=== PATIENT | male | born 1960 | race Caucasian/White ===

== ENCOUNTER 2019-04-23 08:30 | Outpatient (RCR) | payer OTHER, SELFPAY ==
[2019-04-09 09:29] VITALS: BP 159/73; PULSE 80; RESP 18; TEMP 37.3; BMI 41.8
--- NOTE | 2019-04-09 17:23 | HP.PCM_ITS ---
(1) Leg wound, left Status: Chronic Current Visit: Yes Code(s): S81.802A - Unspecified open wou nd, left lower leg, initial encounter Comment: Nonhealing, traumatic and penetrating chronic left leg wound. (2) Venous insufficiency of both lower extremities Status: Chronic Current Visit: Yes Code(s): I87.2 - Venous insufficiency (chronic) (peripheral) History of Present Illness Date of Service: 04/09/19 Chief Complaint: Nonhealing left leg wound. History of Wound: Mr. Beth is a 59-year-old who was in a stable state of health until about 2 months ago when he fell at work. Sustained a wound to his left leg which he had tried to manage at home with no significant improvement. however, he was admitted to the hospital in March due to left leg cellulitis. Since hospital discharge. He has noted persistent wound and worsening left lower extremity swelling. He has been applying Bactroban daily with no significant improvement. He was advised to come to the wound center by his sister/[id number]. Feels well at this time. Denies chills, fever, nausea, vomiting or change in his bowel habit. Past Medical History Past Medical History: Chronic Problems Leg wound, left (Chronic) Nonhealing, traumatic and penetrating chronic left leg wound. Venous insufficiency of both lower extremities (Chronic) Allergies/Adverse Reactions: Allergies No Known Allergies Allergy (Verified 04/09/19 10:00) Home Medications: Ambulatory Orders Medication Instructions Recorded Apixaban [Eliquis] 2.5 mg PO 04/09/19 Furosemide [Lasix] 40 mg PO 04/09/19 Potassium Chloride [K-Dur] 20 meq PO DAILY 04/09/19 Simvastatin 40 mg PO 04/09/19 Smoking Status: Never smoker Review of Systems Constitutional: Denies: Anorexia, Chills, Fever Eyes: Denies: Blurred vision, Pain, Redness HEENT: Denies: Difficulty Swallowing Cardiovascular: Denies: Chest Pain, Chest Pressure Respiratory: Denies: Hemoptysis Gastrointestinal: Denies: Abdominal Pain, Hematemesis, Vomiting Skin: Denies: Jaundice - Physical Exam Vital Signs Temp Pulse Resp BP 99.1 F 80 18 159/73 H 04/09/19 09:29 04/09/19 09:29 04/09/19 09:29 04/09/19 09:29 General: Alert, Oriented x3, Cooperative, No apparent distress HEENT: Atraumatic, Normocephalic Oral: Moist Mucosa Neck: Supple Lungs: Normal air movement Cardiovascular: Regular rate, Regular Rhythm, Normal S1, Normal S2 Abdomen: Non Tender, Obese Extremities: No cyanosis, Edema Skin: Ulcer/ Wound Wound Measurements and Assessment WC - Nurse 1 - General Ulcer Measurement Start: 04/09/19 09:24 Freq: Status: Active Protocol: Activity Type Activity Date Activity User E-Sign Co-Sign Detail Recorded Client Recorded Date Recorded By Document 04/09/19 09:29 DL [id number] 04/09/19 09:56 DL 04/09/19 09:29 Wound Center Nurse 1 [Ulcer Assessment] #1 left kinney -Current Size (cm) - Length 1.1 -Current Size (cm) - Width 1.2 -Current Size (cm) - Depth 0.2 -Total Square Cm 1.32 -Photo Taken Yes -Exudate Amt Small -Exudate Type Serosanguineous -Wound Margin Thickened -Granulation Amt Large (67-100%) -Granulation Quality [place] -Necrosis Amt Small (1-33%) -Necrotic Tissue Type Adherent Slough -Structure Exposed N/A -Texture (Jessica-wound Skin Appearance) Localized Edema ,Scarring -Moisture (Jessica-wound Skin Appearance Dry/Scaly ) -Color (Jessica-wound Skin Appearance) Hemosiderin Staining -Temperature (Jessica-wound Skin No Abnormality Appearance) (Pt Warm) -Tenderness on Palpation (Jessica-wound No Skin Appearance) -Ulcer Cleansing Wound Cleanser -Foul Odor after Cleansing No -Anesthetic Used 5% Lidocaine Gel [Edema Assessment] -Right Calf (cm) 42.5 -Right Ankle (cm) 24 -Left Calf (cm) 45.7 -Left Ankle (cm) 24 WC - Nurse 2 - General Ulcer CM Notes Start: 04/09/19 09:24 Freq: Status: Active Protocol: Activity Type Activity Date Activity User E-Sign Co-Sign Detail Recorded Client Recorded Date Recorded By Document 04/09/19 10:28 MW [id number] 04/09/19 10:34 MW 04/09/19 10:28 Wound Center Nurse 2 [Procedure/Treatment] #1 left kinney -Time 10:29 -Correct Patient Yes -Correct Side, Site, Position Yes -Correct Procedure Yes -Procedure Performed Yes -Type of Procedure Debridement -Clinical Debridement Subcutaneous -Post Debridement Size (cm) - Length 2.5 -Post Debridement Size (cm) - Width 2.0 -Post Debridement Size (cm) - Depth 0.2 -Total Square Cm 5.00 -Wound/Ulcer Outcome Not Healed -Ulcer Cleansing Rinsed/ Irrigated with Saline -Foul Odor after Cleansing No -Bioengineered Tissue No -Bleeding Controlled with Pressure -Offloading No -Treatment Response Procedure Tolerated Well [See Physician Procedure note for Specifics] Pain Scale: 0-10 Numeric [Pain] -Is Patient Pain Free? Yes Musculoskeletal: No Muscle Wasting Neurological: Cranial nerves II-XII grossly intact Psych/Mental Status: Normal Affect Debridement Note Post-Debridement Measurements/Treatment WC - Nurse 2 - General Ulcer CM Notes Start: 04/09/19 09:24 Freq: Status: Active Protocol: Activity Type Activity Date Activity User E-Sign Co-Sign Detail Recorded Client Recorded Date Recorded By Document 04/09/19 10:28 MW [id number] 04/09/19 10:34 MW 04/09/19 10:28 Wound Center Nurse 2 #1 left kinney -Time 10:29 -Correct Patient Yes -Correct Side, Site, Position Yes -Correct Procedure Yes -Procedure Performed Yes -Type of Procedure Debridement -Clinical Debridement Subcutaneous -Post Debridement Size (cm) - Length 2.5 -Post Debridement Size (cm) - Width 2.0 -Post Debridement Size (cm) - Depth 0.2 -Total Square Cm 5.00 -Wound/Ulcer Outcome Not Healed -Ulcer Cleansing Rinsed/ Irrigated with Saline -Foul Odor after Cleansing No -Bioengineered Tissue No -Bleeding Controlled with Pressure -Offloading No -Treatment Response Procedure Tolerated Well Pain Scale: 0-10 Numeric Is Patient Pain Free? Yes Wound debrided: Left leg Type of Debridement: Excisional debridement Anesthesia Used: 4% Lidocaine Solution Depth: Down to and including healthy tissue, in the subcutaneous layer Percentage of wound debrided: 100 Instrument Used: 7mm curette Tissue Removed: Slough and devitalized tissue Severity: Fat Layer Exposed Amount of bleeding with debridement: Mild Bleeding Controlled with: Pressure Patient tolerated procedure well Assessment/Plan Active Problems Leg wound, left (Chronic) Nonhealing, traumatic and penetrating chronic left leg wound. Venous insufficiency of both lower extremities (Chronic) Assessment: Same as above. Plan: Debridement done as documented above. Procedure was well-tolerated. Fib racol daily with Adaptic over top. Lengthy discussion on leg elevation, exercise and weight loss had with patient. Double layer Tubigrip for edema management. Arterial studies ordered. Will request records from admit to hospital. Increased protein intake also recommended. His questions were answered and he was advised to call with any further questions or concerns. Follow-up in a week. This note was generated with [employer] dictation software. It may contain incorrect words, spelling, and punctuation that were not noted in checking the note before signing. Code Visit 111xxx-113xx: 23946 Adeline subq tissue 20 sq cm/< - E and M code New Level 4.
[2019-04-16 09:10] VITALS: BP 138/68; PULSE 64; RESP 16; TEMP 37.2; BMI 41.8
--- NOTE | 2019-04-16 10:31 | PN.PCM_ITS ---
(1) Leg wound, left Status: Chronic Current Visit: Yes Code(s): S81.802A - Unspecified open wou nd, left lower leg, initial encounter Comment: Nonhealing, traumatic and penetrating chronic left leg wound. (2) Venous insufficiency of both lower extremities Status: Chronic Current Visit: Yes Code(s): I87.2 - Venous insufficiency (chronic) (peripheral) Type of Wound Date of Service: 04/16/19 Chief Complaint: Nonhealing left leg wound. History of Wound: Mr. Beth is a 59-year-old who was in a stable state of health until about 2 months ago when he fell at work. Sustained a wound to his left leg which he had tried to manage at home with no significant improvement. however, he was admitted to the hospital in March due to left leg cellulitis. Since hospital discharge. He has noted persistent wound and worsening left lower extremity swelling. He has been applying Bactroban daily with no significant improvement. He was advised to come to the wound center by his sister/[id number]. Feels well at this time. Denies chills, fever, nausea, vomiting or change in his bowel habit. Progress of Wound: Patient denies any new concerns at this time. They report complaince wih dressing instructions. Yet to get Circaids. - Physical Exam Vital Signs Temp Pulse Resp BP 98.9 F 64 16 138/68 H 04/16/19 09:10 04/16/19 09:10 04/16/19 09:10 04/16/19 09:10 General: Alert, Oriented x3, Cooperative, No apparent distress HEENT: Atraumatic, Normocephalic Oral: Moist Mucosa Neck: Supple Lungs: Normal air movement Abdomen: Non Tender, Obese Extremities: No cyanosis, Edema Skin: Ulcer/ Wound Wound Measurements and Assessment WC - Nurse 1 - General Ulcer Measurement Start: 04/09/19 09:24 Freq: Status: Active Protocol: Activity Type Activity Date Activity User E-Sign Co-Sign Detail Recorded Client Recorded Date Recorded By Document 04/16/19 09:10 MW [id number] 04/16/19 09:14 MW 04/16/19 09:10 Wound Center Nurse 1 [Ulcer Assessment] #1 left kinney -Combined with other wound No -Current Size (cm) - Length 3.0 -Current Size (cm) - Width 2.2 -Current Size (cm) - Depth 0.2 -Total Square Cm 6.60 -Photo Taken No -Epithelialization None Present -Tunneling No -Undermining/Tunneling No -Circular Undermining No -Exudate Amt Medium -Exudate Type Serosanguineous -Wound Margin Flat & Intact -Granulation Amt Medium (34-66%) -Granulation Quality Red -Slough/Fibrin Yes -Necrosis Amt Medium (34-66%) -Necrotic Tissue Type Adherent Slough -Structure Exposed N/A -Texture (Jessica-wound Skin Appearance) Assessed, Localized Edema -Moisture (Jessica-wound Skin Appearance Assessed,Dry/ ) Scaly -Color (Jessica-wound Skin Appearance) Assessed, Hemosiderin Staining -Temperature (Jessica-wound Skin No Abnormality Appearance) (Pt Warm) -Tenderness on Palpation (Jessica-wound No Skin Appearance) -Ulcer Cleansing Rinsed/ Irrigated with Saline -Foul Odor after Cleansing No -Anesthetic Used 4% Lidocaine Solution [Edema Assessment] -Lower Limb Edema Present Yes -Left Calf (cm) 46.0 -Left Ankle (cm) 28.7 WC - Nurse 2 - General Ulcer CM Notes Start: 04/09/19 09:24 Freq: Status: Active Protocol: Activity Type Activity Date Activity User E-Sign Co-Sign Detail Recorded Client Recorded Date Recorded By Document 04/16/19 09:34 MW [id number] 04/16/19 09:36 MW 04/16/19 09:34 Wound Center Nurse 2 [Procedure/Treatment] #1 left kinney -Time 09:35 -Correct Patient Yes -Correct Side, Site, Position Yes -Correct Procedure Yes -Procedure Performed Yes -Type of Procedure Debridement -Clinical Debridement Subcutaneous -Post Debridement Size (cm) - Length 3.0 -Post Debridement Size (cm) - Width 2.5 -Post Debridement Size (cm) - Depth 0.2 -Total Square Cm 7.50 -Wound/Ulcer Outcome Not Healed -Ulcer Cleansing Rinsed/ Irrigated with Saline -Foul Odor after Cleansing No -Bioengineered Tissue No -Bleeding Controlled with Pressure -Offloading No -Treatment Response Procedure Tolerated Well [See Physician Procedure note for Specifics] Pain Scale: 0-10 Numeric [Pain] -Is Patient Pain Free? Yes Musculoskeletal: No Muscle Wasting Neurological: Cranial nerves II-XII grossly intact Psych/Mental Status: Normal Affect Debridement Note Post-Debridement Measurements/Treatment WC - Nurse 2 - General Ulcer CM Notes Start: 04/09/19 09:24 Freq: Status: Active Protocol: Activity Type Activity Date Activity User E-Sign Co-Sign Detail Recorded Client Recorded Date Recorded By Document 04/09/19 10:28 MW [id number] 04/09/19 10:34 MW Document 04/16/19 09:34 MW [id number] 04/16/19 09:36 MW 04/09/19 04/16/19 10:28 09:34 Wound Center Nurse 2 #1 left kinney -Time 10:29 09:35 -Correct Patient Yes Yes -Correct Side, Site, Position Yes Yes -Correct Procedure Yes Yes -Procedure Performed Yes Yes -Type of Procedure Debridement Debridement -Clinical Debridement Subcutaneous Subcutaneous -Post Debridement Size (cm) - Length 2.5 3.0 -Post Debridement Size (cm) - Width 2.0 2.5 -Post Debridement Size (cm) - Depth 0.2 0.2 -Total Square Cm 5.00 7.50 -Wound/Ulcer Outcome Not Healed Not Healed -Ulcer Cleansing Rinsed/ Rinsed/ Irrigated with Irrigated with Saline Saline -Foul Odor after Cleansing No No -Bioengineered Tissue No No -Bleeding Controlled with Pressure Pressure -Offloading No No -Treatment Response Procedure Procedure Tolerated Well Tolerated Well Pain Scale: 0-10 Numeric Is Patient Pain Free? Yes Yes Wound debrided: Left leg Type of Debridement: Excisional debridement Anesthesia Used: 4% Lidocaine Solution Depth: Down to and including healthy tissue, in the subcutaneous layer Percentage of wound debrided: 100 Instrument Used: 7mm curette Tissue Removed: Slough and devitalized tissue Severity: Fat Layer Exposed Amount of bleeding with debridement: Mild Bleeding Controlled with: Pressure Patient tolerated procedure well Assessment/Plan Active Problems Leg wound, left (Chronic) Nonhealing, traumatic and penetrating chronic left leg wound. Venous insufficiency of both lower extremities (Chronic) Assessment: Same as above. Plan: Debridement done as documented above. Procedure was well-tolerated. Fibracol daily with Adaptic over top. Continue double layer Tubigrip for edema management for now. Should get Circaids soon. Arterial studies have been ordered. Increased protein intake also recommended. Elevate lowere extremities, weight loss and avoid idle standing. His questions were answered and he was advised to call with any further questions or concerns. Follow-up in a week. This note was generated with [employer] software. It may contain incorrect words, spelling, and punctuation that were not noted in checking the note before signing. Code Visit 111xxx-113xx: 06036 Adeline subq tissue 20 sq cm/<
[2019-04-23 08:49] VITALS: BP 129/73; PULSE 74; RESP 20; TEMP 37; BMI 41.8
--- NOTE | 2019-04-23 09:11 | PN.PCM_ITS ---
(1) Leg wound, left Status: Chronic Current Visit: Yes Code(s): S81.802A - Unspecified open wou nd, left lower leg, initial encounter Comment: Nonhealing, traumatic and penetrating chronic left leg wound. (2) Venous insufficiency of both lower extremities Status: Chronic Current Visit: Yes Code(s): I87.2 - Venous insufficiency (chronic) (peripheral) (3) Cellulitis of leg, left Status: Acute Current Visit: Yes Code(s): L03.116 - Cellulitis of left lower limb Type of Wound Date of Service: 04/23/19 Chief Complaint: Nonhealing left leg wound. History of Wound: Mr. Beth is a 59-year-old who was in a stable state of health until about 2 months ago when he fell at work. Sustained a wound to his left leg which he had tried to manage at home with no significant improvement. however, he was admitted to the hospital in March due to left leg cellulitis. Since hospital discharge. He has noted persistent wound and worsening left lower extremity swelling. He has been applying Bactroban daily with no significant improvement. He was advised to come to the wound center by his sister/[id number]. Feels well at this time. Denies chills, fever, nausea, vomiting or change in his bowel habit. Progress of Wound: Increaseing redness, differential warmth and pain of left leg. Patient denies chills, fever or otherwise feeling of unwell. - Physical Exam Vital Signs Temp Pulse Resp BP 98.6 F 74 20 H 129/73 H 04/23/19 08:49 04/23/19 08:49 04/23/19 08:49 04/23/19 08:49 General: Alert, Oriented x3, Cooperative, No apparent distress HEENT: Atraumatic, Normocephalic Neck: Supple Lungs: Normal air movement Abdomen: Obese Extremities: No cyanosis, Edema Skin: Ulcer/ Wound Wound Measurements and Assessment WC - Nurse 1 - General Ulcer Measurement Start: 04/09/19 09:24 Freq: Status: Active Protocol: Activity Type Activity Date Activity User E-Sign Co-Sign Detail Recorded Client Recorded Date Recorded By Document 04/23/19 08:49 DL [id number] 04/23/19 08:55 DL 04/23/19 08:49 Wound Center Nurse 1 [Ulcer Assessment] #1 left kinney -Current Size (cm) - Length 2.8 -Current Size (cm) - Width 2.4 -Current Size (cm) - Depth 0.2 -Total Square Cm 6.72 -Photo Taken No -Exudate Amt Small -Exudate Type Serosanguineous -Wound Margin Distinct, Outline Attached -Granulation Amt Small (1-33%) -Granulation Quality Red -Necrosis Amt Large (67-100%) -Necrotic Tissue Type Adherent Slough -Structure Exposed N/A -Texture (Jessica-wound Skin Appearance) Scarring -Moisture (Jessica-wound Skin Appearance Dry/Scaly ) -Color (Jessica-wound Skin Appearance) Hemosiderin Staining -Temperature (Jessica-wound Skin No Abnormality Appearance) (Pt Warm) -Tenderness on Palpation (Jessica-wound No Skin Appearance) -Ulcer Cleansing Wound Cleanser -Foul Odor after Cleansing No -Anesthetic Used 5% Lidocaine Gel [Edema Assessment] -Left Calf (cm) 44 -Left Ankle (cm) 27.6 WC - Nurse 2 - General Ulcer CM Notes Start: 04/09/19 09:24 Freq: Status: Active Protocol: Activity Type Activity Date Activity User E-Sign Co-Sign Detail Recorded Client Recorded Date Recorded By Document 04/23/19 09:03 MW [id number] 04/23/19 09:07 MW 04/23/19 09:03 Wound Center Nurse 2 [Procedure/Treatment] #1 left kinney -Time 09:06 -Correct Patient Yes -Correct Side, Site, Position Yes -Correct Procedure Yes -Procedure Performed Yes -Type of Procedure Debridement -Clinical Debridement Subcutaneous -Post Debridement Size (cm) - Length 3.0 -Post Debridement Size (cm) - Width 2.5 -Post Debridement Size (cm) - Depth 0.1 -Total Square Cm 7.50 -Wound/Ulcer Outcome Not Healed -Ulcer Cleansing Rinsed/ Irrigated with Saline -Foul Odor after Cleansing No -Bioengineered Tissue No -Bleeding Controlled with Pressure -Offloading No -Treatment Response Procedure Tolerated Well [See Physician Procedure note for Specifics] Pain Scale: 0-10 Numeric [Pain] -Is Patient Pain Free? Yes Musculoskeletal: No Muscle Wasting Neurological: Cranial nerves II-XII grossly intact Psych/Mental Status: Normal Affect Debridement Note Post-Debridement Measurements/Treatment WC - Nurse 2 - General Ulcer CM Notes Start: 04/09/19 09:24 Freq: Status: Active Protocol: Activity Type Activity Date Activity User E-Sign Co-Sign Detail Recorded Client Recorded Date Recorded By Document 04/09/19 10:28 MW [id number] 04/09/19 10:34 MW Document 04/16/19 09:34 MW [id number] 04/16/19 09:36 MW Document 04/23/19 09:03 MW [id number] 04/23/19 09:07 MW 04/09/19 04/16/19 04/23/19 10:28 09:34 09:03 Wound Center Nurse 2 #1 left kinney -Time 10:29 09:35 09:06 -Correct Patient Yes Yes Yes -Correct Side, Site, Position Yes Yes Yes -Correct Procedure Yes Yes Yes -Procedure Performed Yes Yes Yes -Type of Procedure Debridement Debridement Debridement -Clinical Debridement Subcutaneous Subcutaneous Subcutaneous -Post Debridement Size (cm) - Length 2.5 3.0 3.0 -Post Debridement Size (cm) - Width 2.0 2.5 2.5 -Post Debridement Size (cm) - Depth 0.2 0.2 0.1 -Total Square Cm 5.00 7.50 7.50 -Wound/Ulcer Outcome Not Healed Not Healed Not Healed -Ulcer Cleansing Rinsed/ Rinsed/ Rinsed/ Irrigated with Irrigated with Irrigated with Saline Saline Saline -Foul Odor after Cleansing No No No -Bioengineered Tissue No No No -Bleeding Controlled with Pressure Pressure Pressure -Offloading No No No -Treatment Response Procedure Procedure Procedure Tolerated Well Tolerated Well Tolerated Well Pain Scale: 0-10 Numeric Is Patient Pain Free? Yes Yes Yes Wound debrided: Left Leg Type of Debridement: Excisional debridement Anesthesia Used: 4% Lidocaine Solution Depth: Down to and including healthy tissue, in the subcutaneous layer Percentage of wound debrided: 100 Instrument Used: 7mm curette Tissue Removed: Slough and devitalized tissue Severity: Fat Layer Exposed Amount of bleeding with debridement: Mild Bleeding Controlled with: Pressure Patient tolerated procedure well Assessment/Plan Active Problems Leg wound, left (Chronic) Nonhealing, traumatic and penetrating chronic left leg wound. Venous insufficiency of both lower extremities (Chronic) Cellulitis of leg, left (Acute) Assessment: Same as above. Plan: Debridement done as documented above. Procedure was well-tolerated. Left leg cellulitis. Continue Fibracol daily with Adaptic over top. Continue double layer Tubigrip for edema management for now. Should get Circaids soon. Keflex and Doxycyline to cover possible organisms. Arterial studies have been ordered. Increased protein intake also recommended. Elevate lower extremities, weight loss and avoid idle standing. No significant progress so far with traditional wound care product, will apply for a skin sub. He meets medical necessity due to chronicity of wound, non healing and venous insufficiency. His questions were answered and he was advised to call with any further questions or concerns. Follow-up in a week. This note was generated with [employer] dictation software. It may contain incorrect words, spelling, and punctuation that were not noted in checking the note before signing. Code Visit 111xxx-113xx: 08273 Adeline subq tissue 20 sq cm/<
== END 2019-05-02 23:59 ==
LOC: WC 08:30
PROVIDERS: Family Provider Family Medicine; Visit Provider Internal Medicine
DX: S81.832A Puncture wound without foreign body, left lower leg, initial encounter (principal); W19.XXXA Unspecified fall, initial encounter; I87.2 Venous insufficiency (chronic) (peripheral); Z79.01 Long term (current) use of anticoagulants; Z79.899 Other long term (current) drug therapy; M79.89 Other specified soft tissue disorders
CPT/HCPCS: 11042; 99203; G0463

== ENCOUNTER 2019-05-21 09:00 | Outpatient (RCR) | payer OTHER, SELFPAY ==
[2019-05-03 01:11] VITALS: BP 129/73; PULSE 74; RESP 20; TEMP 37
[2019-05-07 08:36] VITALS: BP 125/71; PULSE 70; RESP 18; TEMP 36.6; BMI 41.8
--- NOTE | 2019-05-07 10:03 | ART_ITS ---
Reason For Study: PAD Procedure A bilateral lower extremity continuous wave Doppler with analog waveform analysis,segmental pressures,and ankle brachial indexes without exercise. Left Segmental Pressures Left brachial= 124mmHg. Left posterior tibial artery = 159mmHg. Left dorsalis pedis artery = 127mmHg. Left digit = 112 mmHg. The left dorsalis pedis waveforms are triphasic. The left posterior tibial artery waveforms are triphasic. Right Segmental Pressures Right brachial= 122mmHg. Right posterior tibial artery = 165mmHg. Right dorsalis pedis artery = 156mmHg. Right digit = 98 mmHg. The right dorsalis pedis waveforms are triphasic. The right posterior tibial artery waveforms are triphasic. Indices The right ankle brachial index by the dorsalis pedis is 1.26. The right ankle brachial index by the posterior tibial artery is 1.33. The right digital-brachial index is 0.79. The left ankle brachial index by the dorsalis pedis is 1.02. The left ankle brachial index by the posterior tibial artery is 1.28. The left digital-brachial index is 0.90. Interpretation Summary Triphasic Doppler waveforms are noted at ankle level bilaterally. Pulse-volume recordings appear satisfactory at all levels bilaterally, including low-thigh, calf, ankle, and digital level. Resting ankle-brachial indices are normal bilaterally. Digital-brachial indices are normal bilaterally. There is no evidence of significant arterial occlusive disease in the lower extremities bilaterally. Ordering Physician: Richie Sandoval Referring Physician: Mishel Luna Performed By: Christie Spencer RVT
--- NOTE | 2019-05-07 10:03 | VDLE_ITS ---
Reason For Study: Edema RIGHT LEFT CFV is compressible, spontaneous, phasic, CFV is compressible, spontaneous, phasic, competent and demonstrates normal competent, and demonstrates normal augmentation. augmentation. FV is compressible, spontaneous, phasic, FV is compressible, spontaneous, phasic, competent and demonstrates normal competent and demonstrates normal augmentation. augmentation. POP V is compressible, spontaneous, phasic, POP V is compressible, spontaneous, phasic, competent and demonstrates normal competent and demonstrates normal augmentation. augmentation. T/P Trunk is compressible. T/P Trunk is compressible. PTV is compressible. PTV is compressible. RT PerV is compressible. LT PerV is compressible. SFJ is INCOMPETENT and measures 1.06 x 1.18 SFJ is INCOMPETENT and measures 0.93 x 0.87 cm. cm. GSV proximal thigh measures 0.33 x 0.32 cm. GSV proximal thigh measures 0.43 x 0.45 cm. GSV above knee is competent. GSV INCOMPETENT throughout for greater than GSV at knee measures 0.26 x 0.29 cm. 0.5 seconds. GSV below knee is INCOMPETENT for greater ASV at knee is INCOMPETENT for greater than than 0.5 seconds. 0.5 seconds and measures 0.68 x 0.72 cm. ASV proximal calf is INCOMPETENT for greater INCOMPETENT embossing tool setter noted 22 cm above than 0.5 seconds and measures 0.37 x 0.39 cm. medial malleolus. INCOMPETENT embossing tool setter noted 14 cm above SSV at junction is competent and measures medial maleolus. 0.33 x 0.37 cm. SSV at junction is INCOMPETENT for greater than 0.5 seconds and measures 0.24 x 0.23 cm. Procedure Exam performed in department. A preliminary report was called and/or faxed to . Interpretation Summary Deep veins of the lower extremities are bilaterally patent and compressible segmentally. There is no evidence of deep vein thrombosis on either side. Valvular competence appears intact within the proximal deep venous systems bilaterally. The great saphenous veins appear bilaterally patent and compressible segmentally. Sapheno-femoral junctions are bilaterally incompetent . The right great saphenous vein appears competent above the knee. The right great saphenous vein appears incompetent below the knee. The left great saphenous vein appears segmentally incompetent. The right small saphenous vein is patent and incompetent. The left small saphenous vein is patent and competent. The right accessory saphenous vein in the right proximal calf is incompetent. The left accessory saphenous vein at knee level is incompetent. An incompetent embossing tool setter vein is noted in the right calf, located 14 centimeters proximal to the right medial malleolus. An incompetent embossing tool setter vein is noted in the left calf, located 22 centimeters proximal to the left medial malleolus. Ordering Physician: Richie Sandoval Referring Physician: Mishel Luna Performed By: Christie Spencer RVT
--- NOTE | 2019-05-07 10:27 | PN.PCM_ITS ---
(1) Leg wound, left Status: Chronic Current Visit: Yes Code(s): S81.802A - Unspecified open wou nd, left lower leg, initial encounter Comment: Nonhealing, traumatic and penetrating chronic left leg wound. (2) Venous insufficiency of both lower extremities Status: Chronic Current Visit: Yes Code(s): I87.2 - Venous insufficiency (chronic) (peripheral) Type of Wound Date of Service: 05/07/19 Chief Complaint: Nonhealing left leg wound. History of Wound: Mr. Beth is a 59-year-old who was in a stable state of health until about 2 months ago when he fell at work. Sustained a wound to his left leg which he had tried to manage at home with no significant improvement. however, he was admitted to the hospital in March due to left leg cellulitis. Since hospital discharge. He has noted persistent wound and worsening left lower extremity swelling. He has been applying Bactroban daily with no significant improvement. He was advised to come to the wound center by his sister/[id number]. Feels well at this time. Denies chills, fever, nausea, vomiting or change in his bowel habit. Progress of Wound: Improving. No new concerns at this time. - Physical Exam Vital Signs Temp Pulse Resp BP 97.8 F 70 18 125/71 H 05/07/19 08:36 05/07/19 08:36 05/07/19 08:36 05/07/19 08:36 General: Alert, Oriented x3, Cooperative, No apparent distress HEENT: Atraumatic, Normocephalic Oral: Moist Mucosa Neck: Supple Lungs: Normal air movement Abdomen: Non Tender, Obese Extremities: No cyanosis, Edema Skin: Ulcer/ Wound Wound Measurements and Assessment WC - Nurse 1 - General Ulcer Measurement Start: 05/07/19 08:36 Freq: Status: Active Protocol: Activity Type Activity Date Activity User E-Sign Co-Sign Detail Recorded Client Recorded Date Recorded By Document 05/07/19 08:36 DL [id number] 05/07/19 08:42 DL 05/07/19 08:36 Wound Center Nurse 1 [Ulcer Assessment] #1 left kinney -Current Size (cm) - Length 1.7 -Current Size (cm) - Width 1.7 -Current Size (cm) - Depth 0.2 -Total Square Cm 2.89 -Photo Taken No -Exudate Amt Small -Exudate Type Serosanguineous -Wound Margin Distinct, Outline Attached -Granulation Amt None Present (0 %) -Necrosis Amt Large (67-100%) -Necrotic Tissue Type Adherent Slough -Structure Exposed N/A -Texture (Jessica-wound Skin Appearance) Scarring -Moisture (Jessica-wound Skin Appearance Dry/Scaly ) -Color (Jessica-wound Skin Appearance) Erythema, Hemosiderin Staining -Temperature (Jessica-wound Skin No Abnormality Appearance) (Pt Warm) -Tenderness on Palpation (Jessica-wound Yes Skin Appearance) -Ulcer Cleansing Wound Cleanser -Foul Odor after Cleansing No -Anesthetic Used 4% Lidocaine Solution [Edema Assessment] -Left Calf (cm) 45 -Left Ankle (cm) 28 WC - Nurse 2 - General Ulcer CM Notes Start: 05/07/19 08:36 Freq: Status: Active Protocol: Activity Type Activity Date Activity User E-Sign Co-Sign Detail Recorded Client Recorded Date Recorded By Document 05/07/19 09:37 MW [id number] 05/07/19 09:44 MW 05/07/19 09:37 Wound Center Nurse 2 [Procedure/Treatment] #1 left kinney -Time 09:38 -Correct Patient Yes -Correct Side, Site, Position Yes -Correct Procedure Yes -Procedure Performed Yes -Type of Procedure Debridement -Clinical Debridement Subcutaneous -Post Debridement Size (cm) - Length 2.5 -Post Debridement Size (cm) - Width 1.5 -Post Debridement Size (cm) - Depth 0.1 -Total Square Cm 3.75 -Wound/Ulcer Outcome Not Healed -Ulcer Cleansing Rinsed/ Irrigated with Saline -Foul Odor after Cleansing No -Bioengineered Tissue No -Bleeding Controlled with Pressure -Offloading No -Treatment Response Procedure Tolerated Well [See Physician Procedure note for Specifics] Pain Scale: 0-10 Numeric [Pain] -Is Patient Pain Free? Yes Musculoskeletal: No Muscle Wasting Neurological: Cranial nerves II-XII grossly intact Psych/Mental Status: Normal Affect Debridement Note Post-Debridement Measurements/Treatment WC - Nurse 2 - General Ulcer CM Notes Start: 05/07/19 08:36 Freq: Status: Active Protocol: Activity Type Activity Date Activity User E-Sign Co-Sign Detail Recorded Client Recorded Date Recorded By Document 05/07/19 09:37 MW [id number] 05/07/19 09:44 MW 05/07/19 09:37 Wound Center Nurse 2 #1 left kinney -Time 09:38 -Correct Patient Yes -Correct Side, Site, Position Yes -Correct Procedure Yes -Procedure Performed Yes -Type of Procedure Debridement -Clinical Debridement Subcutaneous -Post Debridement Size (cm) - Length 2.5 -Post Debridement Size (cm) - Width 1.5 -Post Debridement Size (cm) - Depth 0.1 -Total Square Cm 3.75 -Wound/Ulcer Outcome Not Healed -Ulcer Cleansing Rinsed/ Irrigated with Saline -Foul Odor after Cleansing No -Bioengineered Tissue No -Bleeding Controlled with Pressure -Offloading No -Treatment Response Procedure Tolerated Well Pain Scale: 0-10 Numeric Is Patient Pain Free? Yes Wound debrided: Left leg Type of Debridement: Excisional debridement Anesthesia Used: 4% Lidocaine Solution Depth: Down to and including healthy tissue, in the subcutaneous layer Percentage of wound debrided: 100 Instrument Used: 5mm curette Tissue Removed: Slough and devitalized tissue Severity: Fat Layer Exposed Amount of bleeding with debridement: Mild Bleeding Controlled with: Pressure Patient tolerated procedure well Assessment/Plan Active Problems Leg wound, left (Chronic) Nonhealing, traumatic and penetrating chronic left leg wound. Venous insufficiency of both lower extremities (Chronic) Assessment: Same as above. Plan: Debridement done as documented above. Procedure was well-tolerated. Continue Fibracol daily with Adaptic over top. Continue Circaids for edema management. Increased protein intake also recommended. Elevate lower extremities, weight loss and avoid idle standing. Now approved for [employer] however, patient will like to consider his co payments prior to application. His questions were answered and he was advised to call with any further questions or concerns. Follow-up in a week. This note was generated with [id number] dictation software. It may contain incorrect words, spelling, and punctuation that were not noted in checking the note before signing. Code Visit 111xxx-113xx: 13320 Adeline subq tissue 20 sq cm/<
[2019-05-14 09:52] VITALS: BP 152/77; PULSE 80; RESP 18; TEMP 36.8; BMI 41.8
--- NOTE | 2019-05-14 10:15 | PCM.WC.PN ---
(1) Leg wound, left Status: Chronic Current Visit: Yes Code(s): S81.802A - Unspecified open wound, left lower leg, initial encounter Comment: Nonhealing, traumatic and penetrating chronic left leg wound. (2) Venous insufficiency of both lower extremities Status: Chronic Current Visit: Yes Code(s): I87.2 - Venous insufficiency (chronic) (peripheral) Type of Wound Date of Service: 05/14/19 Chief Complaint: Nonhealing left leg wound. History of Wound: Mr. Beth is a 59-year-old who was in a stable state of health until about 2 months ago when he fell at work. Sustained a wound to his left leg which he had tried to manage at home with no significant improvement. however, he was admitted to the hospital in March due to left leg cellulitis. Since hospital discharge. He has noted persistent wound and worsening left lower extremity swelling. He has been applying Bactroban daily with no significant improvement. He was advised to come to the wound center by his sister/[id number]. Feels well at this time. Denies chills, fever, nausea, vomiting or change in his bowel habit. Progress of Wound: Improving. No new concerns at this time. - Physical Exam Vital Signs Temp Pulse Resp BP 98.2 F 80 18 152/77 H 05/14/19 09:52 05/14/19 09:52 05/14/19 09:52 05/14/19 09:52 General: Alert, Oriented x3, Cooperative, No apparent distress HEENT: Atraumatic, Normocephalic Oral: Moist Mucosa Neck: Supple Lungs: Normal air movement Abdomen: Non Tender, Obese Extremities: No cyanosis, Edema Skin: Ulcer/ Wound Wound Measurements and Assessment WC - Nurse 1 - General Ulcer Measurement Start: 05/07/19 08:36 Freq: Status: Active Protocol: Activity Type Activity Date Activity User E-Sign Co-Sign Detail Recorded Client Recorded Date Recorded By Document 05/14/19 09:52 DL [id number] 05/14/19 09:57 DL 05/14/19 09:52 Wound Center Nurse 1 [Ulcer Assessment] #1 left kinney -Current Size (cm) - Length 2.1 -Current Size (cm) - Width 1.3 -Current Size (cm) - Depth 0.1 -Total Square Cm 2.73 -Photo Taken No -Exudate Amt Small -Exudate Type Serosanguineous -Wound Margin Distinct, Outline Attached -Granulation Amt Medium (34-66%) -Granulation Quality [place] -Necrosis Amt Medium (34-66%) -Necrotic Tissue Type Adherent Slough -Structure Exposed N/A -Texture (Jessica-wound Skin Appearance) Scarring -Moisture (Jessica-wound Skin Appearance Dry/Scaly ) -Color (Jessica-wound Skin Appearance) Ecchymosis, Hemosiderin Staining -Tenderness on Palpation (Jessica-wound No Skin Appearance) -Ulcer Cleansing Rinsed/ Irrigated with Saline -Foul Odor after Cleansing No -Anesthetic Used 5% Lidocaine Gel [Edema Assessment] -Left Calf (cm) 45 -Left Ankle (cm) 28.5 WC - Nurse 2 - General Ulcer CM Notes Start: 05/07/19 08:36 Freq: Status: Active Protocol: Activity Type Activity Date Activity User E-Sign Co-Sign Detail Recorded Client Recorded Date Recorded By Document 05/14/19 10:05 DL [id number] 05/14/19 10:08 DL 05/14/19 10:05 Wound Center Nurse 2 [Procedure/Treatment] #1 left kinney -Time 10:06 -Correct Patient Yes -Correct Side, Site, Position Yes -Correct Procedure Yes -Procedure Performed Yes -Type of Procedure Debridement -Clinical Debridement Subcutaneous -Post Debridement Size (cm) - Length 2.2 -Post Debridement Size (cm) - Width 1.2 -Post Debridement Size (cm) - Depth 0.1 -Total Square Cm 2.64 -Wound/Ulcer Outcome Not Healed -Ulcer Cleansing Rinsed/ Irrigated with Saline -Foul Odor after Cleansing No -Bioengineered Tissue No -Bleeding Controlled with Pressure -Offloading No -Treatment Response Procedure Tolerated Well [See Physician Procedure note for Specifics] Pain Scale: 0-10 Numeric [Pain] -Is Patient Pain Free? Yes Musculoskeletal: No Muscle Wasting Neurological: Cranial nerves II-XII grossly intact Psych/Mental Status: Normal Affect Debridement Note Post-Debridement Measurements/Treatment WC - Nurse 2 - General Ulcer CM Notes Start: 05/07/19 08:36 Freq: Status: Active Protocol: Activity Type Activity Date Activity User E-Sign Co-Sign Detail Recorded Client Recorded Date Recorded By Document 05/07/19 09:37 MW [id number] 05/07/19 09:44 MW Document 05/14/19 10:05 DL [id number] 05/14/19 10:08 DL 05/07/19 05/14/19 09:37 10:05 Wound Center Nurse 2 #1 left kinney -Time 09:38 10:06 -Correct Patient Yes Yes -Correct Side, Site, Position Yes Yes -Correct Procedure Yes Yes -Procedure Performed Yes Yes -Type of Procedure Debridement Debridement -Clinical Debridement Subcutaneous Subcutaneous -Post Debridement Size (cm) - Length 2.5 2.2 -Post Debridement Size (cm) - Width 1.5 1.2 -Post Debridement Size (cm) - Depth 0.1 0.1 -Total Square Cm 3.75 2.64 -Wound/Ulcer Outcome Not Healed Not Healed -Ulcer Cleansing Rinsed/ Rinsed/ Irrigated with Irrigated with Saline Saline -Foul Odor after Cleansing No No -Bioengineered Tissue No No -Bleeding Controlled with Pressure Pressure -Offloading No No -Treatment Response Procedure Procedure Tolerated Well Tolerated Well Pain Scale: 0-10 Numeric Is Patient Pain Free? Yes Yes Wound debrided: Left Leg Type of Debridement: Excisional debridement Anesthesia Used: 4% Lidocaine Solution Depth: Down to and including healthy tissue, in the subcutaneous layer Percentage of wound debrided: 100 Instrument Used: 5mm curette Tissue Removed: Slough and devitalized tissue Severity: Fat Layer Exposed Amount of bleeding with debridement: Mild Bleeding Controlled with: Pressure Patient tolerated procedure well Assessment/Plan Active Problems Leg wound, left (Chronic) Nonhealing, traumatic and penetrating chronic left leg wound. Venous insufficiency of both lower extremities (Chronic) Assessment: Same as above. Plan: Improving. Debridement done as documented above. Procedure was well-tolerated. Continue Fibracol daily with Adaptic over top. Continue Circaids for edema management. Increased protein intake also recommended. Elevate lower extremities, weight loss and avoid idle standing. His questions were answered and he was advised to call with any further questions or concerns. Follow-up in a week. This note was generated with [employer] dictation software. It may contain incorrect words, spelling, and punctuation that were not noted in checking the note before signing. Code Visit 111xxx-113xx: 81835 Adeline subq tissue 20 sq cm/<
[2019-05-21 09:07] VITALS: BP 154/78; PULSE 77; RESP 22; TEMP 36.9; BMI 41.8
--- NOTE | 2019-05-21 10:40 | PN.PCM_ITS ---
(1) Leg wound, left Status: Chronic Current Visit: Yes Code(s): S81.802A - Unspecified open wou nd, left lower leg, initial encounter Comment: Nonhealing, traumatic and penetrating chronic left leg wound. (2) Venous insufficiency of both lower extremities Status: Chronic Current Visit: Yes Code(s): I87.2 - Venous insufficiency (chronic) (peripheral) Type of Wound Date of Service: 05/21/19 Chief Complaint: Nonhealing left leg wound. History of Wound: Mr. Beth is a 59-year-old who was in a stable state of health until about 2 months ago when he fell at work. Sustained a wound to his left leg which he had tried to manage at home with no significant improvement. however, he was admitted to the hospital in March due to left leg cellulitis. Since hospital discharge. He has noted persistent wound and worsening left lower extremity swelling. He has been applying Bactroban daily with no significant improvement. He was advised to come to the wound center by his sister/[id number]. Feels well at this time. Denies chills, fever, nausea, vomiting or change in his bowel habit. Progress of Wound: Modest improvement. Did not use his compression stockings this week. - Physical Exam Vital Signs Temp Pulse Resp BP 98.4 F 77 22 H 154/78 H 05/21/19 09:07 05/21/19 09:07 05/21/19 09:07 05/21/19 09:07 General: Alert, Oriented x3, Cooperative, No apparent distress HEENT: Atraumatic, Normocephalic Oral: Moist Mucosa Neck: Supple Lungs: Normal air movement Abdomen: Non Tender, Obese Extremities: No cyanosis, Edema Skin: Ulcer/ Wound Wound Measurements and Assessment WC - Nurse 1 - General Ulcer Measurement Start: 05/07/19 08:36 Freq: Status: Active Protocol: Activity Type Activity Date Activity User E-Sign Co-Sign Detail Recorded Client Recorded Date Recorded By Document 05/21/19 09:07 [email or web address] [id number] 05/21/19 09:12 DL 05/21/19 09:07 Wound Center Nurse 1 [Ulcer Assessment] #1 left kinney -Current Size (cm) - Length 2.2 -Current Size (cm) - Width 1 -Current Size (cm) - Depth 0.1 -Total Square Cm 2.2 -Photo Taken No -Exudate Amt Small -Exudate Type Serosanguineous -Wound Margin Distinct, Outline Attached -Granulation Amt Medium (34-66%) -Granulation Quality Red -Necrosis Amt Medium (34-66%) -Necrotic Tissue Type Adherent Slough -Structure Exposed N/A -Texture (Jessica-wound Skin Appearance) Scarring -Moisture (Jessica-wound Skin Appearance No Abnormality ) -Color (Jessica-wound Skin Appearance) Hemosiderin Staining -Temperature (Jessica-wound Skin No Abnormality Appearance) (Pt Warm) -Tenderness on Palpation (Jessica-wound No Skin Appearance) -Ulcer Cleansing Rinsed/ Irrigated with Saline -Foul Odor after Cleansing No -Anesthetic Used 5% Lidocaine Gel [Edema Assessment] -Left Calf (cm) 47 -Left Ankle (cm) 29.5 WC - Nurse 2 - General Ulcer CM Notes Start: 05/07/19 08:36 Freq: Status: Active Protocol: Activity Type Activity Date Activity User E-Sign Co-Sign Detail Recorded Client Recorded Date Recorded By Document 05/21/19 09:28 MW [id number] 05/21/19 09:31 MW 05/21/19 09:28 Wound Center Nurse 2 [Procedure/Treatment] #1 left kinney -Time 09:29 -Correct Patient Yes -Correct Side, Site, Position Yes -Correct Procedure Yes -Procedure Performed Yes -Type of Procedure Debridement -Clinical Debridement Subcutaneous -Post Debridement Size (cm) - Length 2.0 -Post Debridement Size (cm) - Width 1.2 -Post Debridement Size (cm) - Depth 0.1 -Total Square Cm 2.40 -Wound/Ulcer Outcome Not Healed -Ulcer Cleansing Rinsed/ Irrigated with Saline -Foul Odor after Cleansing No -Bioengineered Tissue No -Bleeding Controlled with Pressure -Offloading No -Treatment Response Procedure Tolerated Well [See Physician Procedure note for Specifics] Pain Scale: 0-10 Numeric [Pain] -Is Patient Pain Free? Yes Neurological: Cranial nerves II-XII grossly intact Psych/Mental Status: Normal Affect Debridement Note Post-Debridement Measurements/Treatment WC - Nurse 2 - General Ulcer CM Notes Start: 05/07/19 08:36 Freq: Status: Active Protocol: Activity Type Activity Date Activity User E-Sign Co-Sign Detail Recorded Client Recorded Date Recorded By Document 05/07/19 09:37 MW [id number] 05/07/19 09:44 MW Document 05/14/19 10:05 DL [id number] 05/14/19 10:08 DL Document 05/21/19 09:28 MW [id number] 05/21/19 09:31 MW 05/07/19 05/14/19 05/21/19 09:37 10:05 09:28 Wound Center Nurse 2 #1 left kinney -Time 09:38 10:06 09:29 -Correct Patient Yes Yes Yes -Correct Side, Site, Position Yes Yes Yes -Correct Procedure Yes Yes Yes -Procedure Performed Yes Yes Yes -Type of Procedure Debridement Debridement Debridement -Clinical Debridement Subcutaneous Subcutaneous Subcutaneous -Post Debridement Size (cm) - Length 2.5 2.2 2.0 -Post Debridement Size (cm) - Width 1.5 1.2 1.2 -Post Debridement Size (cm) - Depth 0.1 0.1 0.1 -Total Square Cm 3.75 2.64 2.40 -Wound/Ulcer Outcome Not Healed Not Healed Not Healed -Ulcer Cleansing Rinsed/ Rinsed/ Rinsed/ Irrigated with Irrigated with Irrigated with Saline Saline Saline -Foul Odor after Cleansing No No No -Bioengineered Tissue No No No -Bleeding Controlled with Pressure Pressure Pressure -Offloading No No No -Treatment Response Procedure Procedure Procedure Tolerated Well Tolerated Well Tolerated Well Pain Scale: 0-10 Numeric Is Patient Pain Free? Yes Yes Yes Wound debrided: Left Leg Type of Debridement: Excisional debridement Anesthesia Used: 4% Lidocaine Solution Depth: Down to and including healthy tissue, in the subcutaneous layer Percentage of wound debrided: 100 Instrument Used: 5mm curette Tissue Removed: Slough and devitalized tissue Severity: Fat Layer Exposed Amount of bleeding with debridement: Mild Bleeding Controlled with: Pressure Patient tolerated procedure well Assessment/Plan Active Problems Leg wound, left (Chronic) Nonhealing, traumatic and penetrating chronic left leg wound. Venous insufficiency of both lower extremities (Chronic) Assessment: Same as above. Plan: Worsening edema and wound with minimal improvement. Debridement done as documented above. Procedure was well-tolerated. Continue Fibracol daily with Adaptic over top. Continue Circaids for edema management. Compliance recommended. Increased protein intake also recommended. Elevate lower ex tremities, weight loss and avoid idle standing. His questions were answered and he was advised to call with any further questions or concerns. Follow-up in 2 weeks. This note was generated with [employer] dictation software. It may contain incorrect words, spelling, and punctuation that were not noted in checking the note before signing. Code Visit 111xxx-113xx: 83138 Adeline subq tissue 20 sq cm/<
== END 2019-06-02 23:59 ==
LOC: WC 09:00
PROVIDERS: Family Provider Family Medicine; PCP Family Medicine; Referring Provider Internal Medicine; Visit Provider Internal Medicine
DX: S81.832A Puncture wound without foreign body, left lower leg, initial encounter (principal); I87.2 Venous insufficiency (chronic) (peripheral); R60.9 Edema, unspecified; W19.XXXA Unspecified fall, initial encounter; Y93.9 Activity, unspecified; Y92.89 Other specified places as the place of occurrence of the external cause; Y99.0 Civilian activity done for income or pay; R60.0 Localized edema; I73.9 Peripheral vascular disease, unspecified; M79.89 Other specified soft tissue disorders
CPT/HCPCS: 11042; 93923; 93970

== ENCOUNTER 2019-06-04 09:12 | Outpatient (RCR) | payer OTHER, SELFPAY ==
[2019-06-03 00:50] VITALS: BP 154/78; PULSE 77; RESP 22; TEMP 36.9
[2019-06-04 09:23] VITALS: BP 138/77; PULSE 82; RESP 18; TEMP 37.1; BMI 41.8
--- NOTE | 2019-06-04 09:53 | PN.PCM_ITS ---
(1) Cellulitis of leg, left Status: Acute Current Visit: No Code(s): L03.116 - Cellulitis of left lower limb (2) Leg wound, left Status: Chronic Current Visit: No Code(s): S81.802A - Unspecified open wound, left lower leg, initial encounter Comment: Nonhealing, traumatic and penetrating chronic left leg wound. (3) Venous insufficiency of both lower extremities Status: Chronic Current Visit: Yes Code(s): I87.2 - Venous insufficiency (chronic) (peripheral) Type of Wound Date of Service: 06/04/19 Chief Complaint: Nonhealing left leg wound. History of Wound: Mr. Beth is a 59-year-old who was in a stable state of health until about 2 months ago when he fell at work. Sustained a wound to his left leg which he had tried to manage at home with no significant improvement. however, he was admitted to the hospital in March due to left leg cellulitis. Since hospital discharge. He has noted persistent wound and worsening left lower extremity swelling. He has been applying Bactroban daily with no significant improvement. He was advised to come to the wound center by his sister/[id number]-ot-rdl. Feels well at this time. Denies chills, fever, nausea, vomiting or change in his bowel habit. Progress of Wound: Hyper granulation at the kinney applied nitro sticks to area cover with gauze patient will be discharged from the wound center. Courtesy c onsult - Physical Exam Vital Signs Temp Pulse Resp BP 98.7 F 82 18 138/77 H 06/04/19 09:23 06/04/19 09:23 06/04/19 09:23 06/04/19 09:23 General: Oriented x3, Cooperative, Well developed HEENT: Atraumatic, PERRLA Oral: Moist Mucosa Neck: Supple, No JVD Lungs: Clear to auscultation, Normal air movement Cardiovascular: Regular rate, Regular Rhythm Abdomen: Bowel Sounds Present, Soft, Non Tender, No Hepato-splenomegaly Extremities: No clubbing, No edema Skin: Ulcer/ Wound - Right kinney ulcer Wound Measurements and Assessment WC - Nurse 1 - General Ulcer Measurement Start: 06/04/19 09:22 Freq: Status: Active Protocol: Activity Type Activity Date Activity User E-Sign Co-Sign Detail Recorded Client Recorded Date Recorded By Document 06/04/19 09:23 CS [id number] 06/04/19 09:28 CS 06/04/19 09:23 Wound Center Nurse 1 [Ulcer Assessment] #1 left kinney -Combined with other wound No -Current Size (cm) - Length 0.4 -Current Size (cm) - Width 0.3 -Current Size (cm) - Depth 0.1 -Total Square Cm 0.12 -Photo Taken No -Epithelialization Small 1-33% -Tunneling No -Undermining/Tunneling No -Circular Undermining No -Exudate Amt Small -Exudate Type Serous -Wound Margin Distinct, Outline Attached -Granulation Amt Small (1-33%) -Granulation Quality N/A -Slough/Fibrin No -Necrosis Amt None Present (0 %) -Necrotic Tissue Type Adherent Slough -Structure Exposed None/Limited to Skin Breakdown -Texture (Jessica-wound Skin Appearance) No Abnormality, Assessed -Moisture (Jessica-wound Skin Appearance No Abnormality, ) Assessed -Color (Jessica-wound Skin Appearance) Hemosiderin Staining -Temperature (Jessica-wound Skin No Abnormality Appearance) (Pt Warm) -Tenderness on Palpation (Jessica-wound No Skin Appearance) -Ulcer Cleansing Rinsed/ Irrigated with Saline -Foul Odor after Cleansing No -Anesthetic Used 4% Lidocaine Solution [Edema Assessment] -Lower Limb Edema Present No -Left Calf (cm) 45 -Left Ankle (cm) 26.5 WC - Nurse 2 - General Ulcer CM Notes Start: 06/04/19 09:22 Freq: Status: Active Protocol: Activity Type Activity Date Activity User E-Sign Co-Sign Detail Recorded Client Recorded Date Recorded By Document 06/04/19 09:40 MW [id number] 06/04/19 09:42 MW 06/04/19 09:40 Wound Center Nurse 2 [Procedure/Treatment] #1 left kinney -Time 09:40 -Correct Patient Yes -Correct Side, Site, Position Yes -Correct Procedure Yes -Procedure Performed No -Post Debridement Size (cm) - Length 0 -Post Debridement Size (cm) - Width 0 -Post Debridement Size (cm) - Depth 0 -Total Square Cm 0 -Wound/Ulcer Outcome Healed- Epithelialized -Bleeding Controlled with Silver Nitrate -Offloading No -Treatment Response Procedure Tolerated Well [See Physician Procedure note for Specifics] Pain Scale: 0-10 Numeric [Pain] -Is Patient Pain Free? Yes Musculoskeletal: No Tenderness to Palpation of Joints or Extremities Lymphatic: No Cervical, Supraclavicular, or Inguinal Adenopathy Neurological: Cranial nerves II-XII grossly intact, Neuro grossly intact Psych/Mental Status: Normal Affect, Appropriate Debridement Note Post-Debridement Measurements/Treatment WC - Nurse 2 - General Ulcer CM Notes Start: 06/04/19 09:22 Freq: Status: Active Protocol: Activity Type Activity Date Activity User E-Sign Co-Sign Detail Recorded Client Recorded Date Recorded By Document 06/04/19 09:40 MW [id number] 06/04/19 09:42 MW 06/04/19 09:40 Wound Center Nurse 2 #1 left kinney -Time 09:40 -Correct Patient Yes -Correct Side, Site, Position Yes -Correct Procedure Yes -Procedure Performed No -Post Debridement Size (cm) - Length 0 -Post Debridement Size (cm) - Width 0 -Post Debridement Size (cm) - Depth 0 -Total Square Cm 0 -Wound/Ulcer Outcome Healed- Epithelialized -Bleeding Controlled with Silver Nitrate -Offloading No -Treatment Response Procedure Tolerated Well Pain Scale: 0-10 Numeric Is Patient Pain Free? Yes Wound debrided: Right kinney Anesthesia Used: 5% Lidocaine Gel Percentage of wound debrided: 100 Bleeding Controlled with: Silver Nitrate No debridement was completed today Assessment/Plan Active Problems Venous insufficiency of both lower extremities (Chronic) Assessment: Same as above. Plan: Courtesy consult. Patient is to keep the area covered with a dry gauze for next week. Continue wearing CircAid's. Discharge from the wound center follow-up as needed
== END 2019-07-03 23:59 ==
LOC: WC 09:12
PROVIDERS: Family Provider Family Medicine; PCP Family Medicine; Referring Provider Nurse Practitioner; Visit Provider Nurse Practitioner
DX: S81.832A Puncture wound without foreign body, left lower leg, initial encounter (principal); I87.2 Venous insufficiency (chronic) (peripheral); L03.116 Cellulitis of left lower limb; W19.XXXA Unspecified fall, initial encounter
CPT/HCPCS: 17250

== ENCOUNTER 2020-07-01 17:30 | Observation (INO) | payer OTHER, SELFPAY ==
[2020-06-27 12:58] VITALS: BMI 41.8
--- NOTE | 2020-06-29 13:42 | EKG12_ITS ---
Test Reason : PRE-OP Blood Pressure : / mmHG Vent. Rate : 071 BPM Atrial Rate : 071 BPM P-R Int : 170 ms QRS Dur : 086 ms QT Int : 386 ms P-R-T Axes : 047 068 060 degrees QTc Int : 419 ms Normal sinus rhythm Normal ECG Confirmed by ALESHA THOMPSON, MADI ([id number]), video tape editor CASPER MARI ([id number]) on 06/30/2020 11:16:09 AM Referred By: Jevon Watson Confirmed By:MADI EDUARDO MD
[2020-06-29 14:55] LABS: Hematocrit 44.8 % (40-54); Hemoglobin 14.1 g/dL (13.0-16.5); Mean Corp Hgb Conc 31.5 g/dL (32-36); Mean Corpuscular Hgb 26.9 pg (27.0-32.0); Mean Corpuscular Volume 85.5 fL (80-94); Mean Platelet Vol. 10.2 fl (6.2-12.0); Platelet Count 271 K/mm3 (150-450); RBC Distribution Width SD 43.6 fl (35.1-43.9); Red Blood Count 5.24 M/mm3 (4.6-6.2); White Blood Count 7.8 K/mm3 (4.4-11.0)
[2020-06-29 15:21] LABS: Partial Thromboplast Time 28.1 Seconds (24.1-36.2)
[2020-06-29 15:27] LABS: AST(SGOT) 22 U/L (15-37); Alanine Aminotransfer ALT/SGPT 29 U/L (16-61); Albumin, Serum 3.5 g/dL (3.2-5.0); Alkaline Phosphatase 110 U/L (45-117); Globulin 4.4 g/dL (2.2-4.2); Protein, Total 7.9 g/dL (6.4-8.2)
[2020-07-01] VITALS (19 sets, daily range): BP systolic 101–165; BP diastolic 61–122; PULSE 58–75; RESP 16–20; TEMP 35.8–37.1; O2SAT 90–98; BMI 45.1
--- NOTE | 2020-07-01 | HERN_PTH ---
PATIENT: SHILPI RAO LOC: MS3 U#:[id number] AGE/SX: 60/M ROOM: ND306 RE07/01/[address]: Dr. Jevon Watson MD : 1960 BED: 1 DIS: 07/02/2020 SPEC #: [id number] RECD: 07/01/20 14:48 STATUS: ABBE LOOMIS #: [id number] CARLTIA: 07/01/20 00:[address]: Jevon Watson DEPT: SURGICAL PATHOLOGY RECD BY: Philip Singh ENTERED: 07/04/20 10:50 SP TYPE: Hernia OTHR DR: Dr. Mishel Luna MD Tissues: HERNIA Procedures: Surgery Specimen Level II HEADER OPERATION: Open with conversion to laparoscopic hernia, ventral repair PRE-OP DIAGNOSIS: Hernia, incarcerated umbilical hernia TISSUE SUBMITTED: Hernia sac MICROSCOPIC DIAGNOSIS Hernia sac, herniorrhaphy: Hernia sac with mild fibrosis. AM:jakub 07/05/2020 MICROSCOPIC DESCRIPTION Slides are reviewed. GROSS DESCRIPTION Received in fixative is one container labeled with the patient's name and designated hernia sac. The specimen consists of a glistening fragment of light to dark obrine soft tissue measuring 10 x 3 x 1 cm. Serial sections do not reveal mass lesions. Technical Inspector sections are submitted in one cassette. / AM:jakub 07/04/20 TC:3 CPT: 28636
--- NOTE | 2020-07-01 06:00 | HP_ITS ---
Intake Vital Signs 06/27/20 Height 5 ft 11 in 06/27/20 Weight: 300 lb 06/27/20 BMI 41.8 06/27/20 BP 127/79 H 06/27/20 Blood Pressure Location Rt brachial 06/27/20 Position Sitting 06/27/20 Respiration 18 Intake Visit Reasons: Hernia Chief Complaint: hernia Wireless Network Engineer Required: No Is patient in pain?: No Allergies No Known Allergies Allergy (Verified 06/27/20 12:58) Medications Apixaban [Eliquis] 2.5 mg PO 04/09/19 [History Confirmed 06/27/20] Furosemide [Lasix] 40 mg PO 04/09/19 [History Confirmed 06/27/20] Simvastatin 40 mg PO 04/09/19 [History Confirmed 06/27/20] PFSH Medical History Leg wound, left (Chronic) Venous insufficiency of both lower extremities (Chronic) Cellulitis of leg, left (Acute) Family History Father Diabetes Heart disease Sister Hypertension Social History (Updated 06/27/20 @ 13:[address] Jevon Watson MD) Smoking Status: Never smoker alcohol intake: current alcohol intake frequency: holidays/special occasions only HPI HPI HPI: SHILPI RAO, is a 60 M who presents to the office today for HPI HPI Surgical H&P: Yes HPI: SHILPI RAO, is a 60 M who presents to the office today for painful hernia. The pain starts at his umbilical area and radiates to the left side. The patient does not have any nausea or vomiting but he does have a lot of pain related to this hernia. He says has been there for quite some time it happened during heavy lifting at work approximately 1 year ago. Patient does not have any fevers or chills. Patient radiates to the left side of the abdomen. ROS General General: No weight change, appetite or fatigue HEENT HEENT: No difficulty swallowing, eye injury or eye surgery Endo Endocrine: No thyroid disease or diabetes mellitus Skin Skin: No rash or changing moles Musc Musculoskeletal: No back problems, arthritis or rheumatoid arthritis Cardio Cardiovascular: No murmur, pacemaker, heart disease, atrial fibrillation, high blood pressure, heart attack, heart stent, palpitations, shortness of breat with exertion or chest pain Psych Psychiatric: No depression or anxiety Resp Respiratory: No shortness of breath, No sleep apnea, No cough, No COPD, No asthma, No emphysema, No wheezing Gastro Gastrointestinal: Yes abdominal pain, No nausea or vomiting, No diarrhea, No constipation, No blood in stool, No acid reflux, No hemorrhoids, No ulcers, No gallbladder problem, No black,tarry stools Additional Details: Ventral hernia Derrell Hematologic: Yes blood thinners, No blood disorders, Yes blood clots Neuro Neurologic: Yes system reviewed and no additional complaints, except as docu Exam Const General: cooperative Orientation: alert, oriented x3 HENMT Head: normal to inspection Ears: hearing grossly normal bilaterally Eyes General: appearance normal, both eyes and all related structures Visual Luna: normal visual luna by confrontation Neck Neck: normal visual inspection Chest Chest palpation & inspection: normal inspection of the chest Resp Effort & Inspection: normal respiratory effort Auscultation: clear to auscultation bilaterally Cardio Rate: regular rate Rhythm: regular rhythm Heart Sounds: no murmurs GI Inspection: non-distended Palpation: soft, hernia umbilical, nontender Musc Cervical Spine: normal cervical lordosis, cervical ROM normal Skin General: no rashes or lesions noted Neuro General: alert, oriented x3 Cranial Nerves: CN's II-XI intact bilaterally Cognition: normal cognition Extrem General: normal to inspection, full ROM Psych Appearance: grossly normal Affect: normal affect Assessment & Plan 1. Hernia K46.9 2. Incarcerated umbilical hernia K42.0 Plan The patient has a large incarcerated umbilical hernia. It was unable to be reduced in the office. There is pain radiating to the left side of the abdomen but there is no appreciable hernia on the left side of the abdomen. The patient also has diastases recti. I discussed repair options with him. I recommend a hybrid approach in which we reduce the hernia and repair the hernia from the outside but placed laparoscopic posterior intraperitoneal mesh. I discussed the procedure with him in detail including but not limited to bleeding, infection, injury to underlying bowel, recurrence of hernia due to his weight. The patient understands all the risks. 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 I would like him to stop this for 2 days prior to the procedure and then I will resume this immediately after the procedure. Jevon Watson MD Pager: [facility] [address] [place] [address], [address] [place] [address] Office: Coding Level of Care Code Off vis,new,level 4 Diagnoses Hernia K46.9 Incarcerated umbilical hernia K42.0 I have re-examined the patient. There are no clinical changes since date of exam.
[2020-07-01] MEDS: Lactated Ringers 1,000 ML 100 ML IV ×3 (12:55→20:05)
[2020-07-01] MEDS: Bupiv/Epi 0.25% 30 ML Vial (14:00)
--- NOTE | 2020-07-01 15:00 | PCM.OPRPT ---
Problem List (1) Ventral hernia Status: Acute Qualifiers: Obstruction and gangrene presence: without obstruction or gangrene Qualified Code(s): K43.9 - Ventral hernia without obstruction or gangrene Report of Operation Date of Procedure: 07/01/20 Pre-Operative Diagnosis: Umbilical hernia Post-Operative Diagnosis: Umbilical hernia and ventral hernia Surgery/Procedure Performed:: Laparoscopic converted open ventral hernia repair with mesh Specimen's removed: Hernia sac Description of Procedure: Patient was brought back to the operating room and general anesthesia was induced. The abdomen was prepped and draped in usual sterile fashion. The area superior to the umbilicus with the hernia was marked with a vertical line and this was injected with local anesthetic. Scalpel was used to make an incision and this was deepened to the hernia sac. The hernia sac was bluntly dissected free circumferentially down to the fascia. The hernia sac was then opened sharply and contained omental fat. The adhesions from the hernia sac were lysed and the contents were reduced. The hernia sac was then dissected free and excised using cautery. There appeared to be a small umbilical hernia inferior to the ventral hernia. Next interrupted 0 PDS sutures were used to close the ventral hernia. Before these middle 2 sutures were tied a balloon port was placed into the abdomen and the abdomen was insufflated to 15 mmHg. Under direct visualization a left lower 5 mm port was placed as well as a left upper quadrant 5 mm port. A 15 cm round ventral light ST mesh with echo positioning device was rolled and placed through the 12 mm port into the abdomen. The port was removed leaving the positioning devices balloon and the sutures at the fascia were tied. Next the balloon was insufflated to position the mesh and a secure strap tacker was used to tack 4 quadrants of mesh. The balloon was then removed through one of the 5 mm ports and it was intact and complete. Next using a secure strap tacker the mesh was secured to the abdominal wall in a circumferential fashion in 2 rows. Next the abdomen was allowed to desufflate and the 5 mm ports were removed. The subcutaneous cavity was irrigated and suctioned and appeared to have good hemostasis. The deep tissue was closed with interrupted 4-0 Monocryl sutures and the skin was closed with interrupted 4-0 Monocryl sutures. Steri-Strips and bandages were applied to all incisions. Patient was then awoken and taken to PACU in stable condition and tolerated the procedure well. Grafts/Implants Used: [address] mesh - Admit VTE Documentation VTE Mechan Device Prophylaxis: SCD's
--- NOTE | 2020-07-01 15:07 | PCM.DC.HER ---
Discharge Diet: Light diet - advance as tolerated Discharge Activity: Return to Normal Activity, May Not Drive - for 2-3 days or while taking narcotic pain meds., May Shower - with the bandage in place 1-2 days after surgery. Lifting Restrictions: 20 pounds for 6 weeks. Additional Activity Instructions:: Climbing stairs is fine, walking is encouraged. Sitting in bed may be uncomfortable. Sitting up using your lateral muscles (sitting up sideways) is usually more comfortable. Do not drive, work heavy equipment of sign legal documents for 24 hours. Pain medications may cause nausea, you should typically eat light foods as you take your pain medications. Pain medications may also cause constipation. If you have difficulty with this, discuss with your doctor. Call your doctor if your incision/area has: Continuous Slow Oozing, Sudden Increased Bleeding, Increased Pain/ Swelling, Increased Redness, Foul Smelling Discharge Call your doctor if you observe: Fever of 101 or Higher Suture Line Care: Avoid Pulling/Pushing, Avoid Pinching/Bending Change Dressing in (Days):: 3 - Leave steri-strips for 1 week. May protect with a guaze bandaid. Cleanse incision/area with: Keep Dressing Clean & Dry Additional Instructions: Resume blood thinner saturday. Allergies/Adverse Reactions: Allergies No Known Allergies Allergy (Verified 07/01/20 12:13) Medications to take at Discharge Apixaban [Eliquis] 2.5 mg PO BID 04/09/19 Furosemide [Lasix] 40 mg PO DAILY 04/09/19 Simvastatin 40 mg PO QHS 04/09/19 Oxycodone HCl/Acetaminophen [Percocet 5-325 mg Tablet] 1 - 2 tab PO Q6H PRN PRN 3 Days #30 tablet 07/01/20 The following prescriptions were given: Oxycodone HCl/Acetaminophen [Percocet 5-325 mg Tablet] 1 - 2 tab PO Q6H PRN PRN 3 Days #30 tablet PRN Reason: Pain Score 4-10/10 Transmission Status: Sent to [facility] Primary Care Physician: Mishel Luna MD [Primary Care Provider] - Test Results: Test results from this visit will be discussed in further detail at your follow-up appointment, if applicable. Please Follow Up With: Jevon Watson MD When: Please call to schedule 2 week follow up appointment. [phone]
[2020-07-01] MEDS: diazePAM 5 MG Tablet PO (15:56)
--- NOTE | 2020-07-01 16:41 | CPS ---
teaching of I.S. was done by nursing in PACU.
[2020-07-01] MEDS: Ipratropium/Albuterol Sulfate 3 ML AMPUL.NEB INHALATION (16:58)
--- NOTE | 2020-07-01 17:27 | PCM.PN.BLA ---
Progress Note Patient is in a lot of pain after surgery and unable to come off nasal cannula oxygen. Will be admitted to control pain and wean O2. Jevon Watson MD STROKE Vital Signs/Narrative: Vital Signs Temp Pulse Resp BP Pulse Ox 07/01/20 17:15 75 16 101/65 92 07/01/20 17:00 73 20 H 129/78 H 93 07/01/20 16:45 66 16 139/122 H 91 07/01/20 16:30 63 16 109/71 90 07/01/20 16:15 64 16 130/80 H 93 07/01/20 16:00 65 18 93 07/01/20 15:45 71 18 130/78 H 92 07/01/20 15:30 66 18 114/77 93 07/01/20 15:15 61 18 122/83 H 92 07/01/20 15:00 58 L 20 H 123/88 H 98 07/01/20 14:46 96.4 F L 60 20 H 123/75 H 95 07/01/20 14:45 64 20 H 123/88 H 95
--- NOTE | 2020-07-01 19:43 | PCS.PANDOC ---
PANDEMIC DOCUMENTATION INITIATED: Date: 07/01/2020 Time: 1819
[2020-07-01] MEDS: Atorvastatin Calcium 20 MG Tablet PO (22:46)
[2020-07-02] VITALS (7 sets, daily range): BP systolic 123–148; BP diastolic 66–78; PULSE 52–73; RESP 18; TEMP 36.2–37.2; O2SAT 94–98
[2020-07-02] MEDS: oxyCODONE 5 MG Tablet PO ×2 (02:31→06:37)
[2020-07-02] MEDS: Lactated Ringers 1,000 ML 100 ML IV (05:58)
[2020-07-02] MEDS: diazePAM 5 MG Tablet PO (07:24)
[2020-07-02 08:19] LABS: Anion Gap 6 (5-15); BUN 12 mg/dL (7-18); BUN/Creat Ratio 13.6 RATIO (10-20); Calcium,Total 8.2 mg/dL (8.5-10.1); Chloride 107 mmol/L (98-107); Creatinine, Serum 0.88 mg/dL (0.70-1.30); EST Glomerular Filtration Rate 94 mL/min (>60); Est Glom Filt Rate - Afr Amer 113 mL/min (>60); Estimated Creatinine Clearance 96.26 ml/min; Glucose 98 mg/dL (74-106); Potassium 4.5 mmol/L (3.5-5.1); Sodium Level 136 mmol/L (136-145)
[2020-07-02 08:49] LABS: Absolute Lymphocyte Count 1.18 X10^3/uL (0.83-4.51); Absolute Neutrophil Count 9.6 X10^3/uL (2.0-7.7); Basophil# 0.01 X10^3/uL; Basophil% 0.1 % (0-1); Hematocrit 43.7 % (40-54); Hemoglobin 13.4 g/dL (13.0-16.5); Lymphocyte # 1.18 X10^3/ul (4.0); Lymphocyte % 10.1 % (19-41); Mean Corp Hgb Conc 30.7 g/dL (32-36); Mean Corpuscular Hgb 26.8 pg (27.0-32.0); Mean Corpuscular Volume 87.4 fL (80-94); Mean Platelet Vol. 9.8 fl (6.2-12.0); Monocyte# 0.96 X10^3/uL; Monocyte% 8.2 % (0-10); NRBC Flagged by Analyzer 0 % (0-5); Neutrophil # 9.56 X10^3/uL (2.7-7.7); Neutrophil % 81.3 % (47-70); Platelet Count 239 K/mm3 (150-450); RBC Distribution Width CV 14.4 % (11.6-14.6); RBC Distribution Width SD 45.9 fl (35.1-43.9); White Blood Count 11.7 K/mm3 (4.4-11.0)
[2020-07-02] MEDS: Furosemide 40 MG Tablet PO (10:25)
== END 2020-07-02 14:30 | disposition home or self-care (01) ==
LOC: SDC 17:45 → MS3 17:45
PROVIDERS: Anesthesiology; Admitting Provider Surgery; PCP Family Medicine; Referring Provider Surgery; Visit Provider Surgery
PROC: 0WQF4ZZ Repair Abdominal Wall, Percutaneous Endoscopic Approach (ICD-10-PCS; CPT 49560; principal; 2020-07-01 13:25)
DX: K43.9 Ventral hernia without obstruction or gangrene (principal); K42.0 Umbilical hernia with obstruction, without gangrene; I87.2 Venous insufficiency (chronic) (peripheral); F17.220 Nicotine dependence, chewing tobacco, uncomplicated; Z20.828 Contact with and (suspected) exposure to other viral communicable diseases; Z79.01 Long term (current) use of anticoagulants; Z79.899 Other long term (current) drug therapy; Z86.711 Personal history of pulmonary embolism; Z86.718 Personal history of other venous thrombosis and embolism; E78.00 Pure hypercholesterolemia, unspecified
CPT/HCPCS: 00752; 49560; 49568; 36415; 80048; 80076; 85025; 85027; 85610; 85730; 87426; 88302; 93005; 94640; 96360; 96361; 99218; 99406; C9803; J7120; G0378; G0379; J2405

== ENCOUNTER 2022-11-29 13:15 | Outpatient (RCR) | payer BC, SELFPAY ==
[2022-11-13 10:05] VITALS: BP 161/75; PULSE 71; RESP 20; TEMP 36.6; BMI 45.8
--- NOTE | 2022-11-13 11:57 | PCM.WC.HP ---
History of Present Illness Date of Service: 11/13/22 Chief Complaint: Left posterior calf ulceration History of Wound: This is a 62-year-old morbidly obese male who presents with an ulceration on the left posterior calf. The patient was hospitalized at [facility] in [place], [place] recently for 2 days in treatment for bilateral lower extremity cellulitis. He was treated with intravenous Augmentin during his hospital stay, and discharged on a course of Keflex. The patient has a history of lower extremity deep vein thrombosis on at least 3 occasions. He also has had pulmonary emboli in the past. He is currently receiving lifelong systemic anticoagulation with Apixaban 5 mg p.o. twice daily. The patient is known to have chronic swelling in his lower extremities. He is not very active. He sleeps in a recliner with his legs in a dependent position. He sits for long periods each day while at home. 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 His BMI is 45.8. He has been soaking his left foot in soapy water in treatment for a skin tear on the plantar aspect of his left great toe. Venous duplex examination in May 2019 revealed bilateral superficial venous incompetence. A noninvasive lower extremity arterial study at the same time revealed no evidence of significant arterial occlusive disease. [facility] Medical History (Updated 11/13/22 @ 12:[address] 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 Pressure ulcer Right leg swelling Tobacco abuse Tobacco abuse counseling Ulcer of left calf Venous hypertension, chronic, with ulcer and inflammation Venous insufficiency of both lower extremities Home Medications furosemide 40 mg tablet 40 mg PO BID 04/09/19 [History Last Taken Unknown] simvastatin 40 mg tablet 40 mg PO QHS 04/09/19 [History Last Taken Unknown] apixaban 5 mg tablet (Eliquis) 5 mg PO BID 11/13/22 [History Last Taken Unknown] Allergy/AdvReac Type Severity Reaction Status Date / Time No Known Allergies Allergy Verified 11/13/22 10:53 Family History Father Diabetes Heart disease Sister Hypertension Surgical History Hx of ventral hernia repair Social History Smoking Status: Never smoker alcohol intake: current alcohol intake frequency: holidays/special occasions only Vital Signs Vital Signs Vital Signs: 11/13/22 10:05 Temperature 97.9 F Temperature Source Temporal Pulse Rate 71 Respiratory Rate 20 H Blood Pressure 161/75 H Blood Pressure Mean 103 Blood Pressure Source Monitor Blood Pressure Position Sitting Blood Pressure Location Left Arm Oxygen Delivery Method Room Air Weight Weight: 310 lb Body Mass Index (BMI) 45.8 Physical Exam Const alert, oriented x3, no apparent distress and well nourished Constitutional Narrative: The patient is morbidly obese. His BMI is 45.8. General Appearance: cooperative, comfortable, well developed and disheveled Orientation / Consciousness: awake, oriented to person, oriented to place and oriented to time HEENT normocephalic and head/scalp atraumatic Head and Scalp: normal to inspection, normocephalic and atraumatic External Ear: external ears normal Eyes PERRL and EOMs intact bilaterally General Eye: normal appearance of both eyes Resp normal respiratory effort, normal air movement, no retractions and no use of accessory muscles Effort and Inspection: able to speak in complete sentences Extremity no calf tenderness General Extremity: Negative for clubbing or cyanosis Skin Wound Narrative: Severe swelling and edema are noted in the patient's lower extremities bilaterally. Lipodermatosclerosis and hemosiderin staining are noted in the gaiter areas bilaterally. Diffuse erythema is noted in the gaiter areas bilaterally, suspected to be inflammatory in nature, rather than cellulitic. An ulceration is noted on the left posterior calf. Dimensions are documented elsewhere. There is a moderate amount of bioburden and nonviable tissue present. A cleft is noted on the plantar aspect of the right great toe, with disruption of the epidermis, but without evidence of infection or drainage. Dry, scaly epidermis is noted at the rim of both feet, appearing to represent exfoliating epidermis. Neuro oriented x3, CN's II-XII intact bilaterally and moves all extremities Sensorium / Orientation: awake, alert, oriented to person, oriented to place and oriented to time Psych Appearance: grossly normal and appropriate Attitude: calm Activity / Motor Behavior: appropriate eye contact Speech: normal speech Mood & Affect: euthymic mood Thought Process: normal thought process Thought Content: normal thought content Attention / Concentration: attention grossly intact Debridement Note Debridement Note Wound debrided: Left posterior calf ulceration Laterality: Left Type of Debridement: Excisional debridement Anesthesia Used: 5% Lidocaine Gel Depth: Down to and including healthy tissue and in the subcutaneous layer Percentage of wound debrided: 100 Instrument Used: 5mm curette Tissue Removed: Bioburden and nonviable/necrotic tissue Severity: Fat Layer Exposed Amount of bleeding with debridement: Mild Bleeding Controlled with: Compression and gauze Patient tolerated procedure: Patient tolerated procedure well Post-Debridement Measurements and Additional Note: Post-Debridement Measurements/Treatment - Nurse 1 - General Ulcer Assessment Start: 11/13/22 10:05 Freq: Status: Active Protocol: ANJU Activity Type Activity Date Activity User E-sign Co-sign Detail Recorded Client Recorded Date Recorded By Document 11/13/22 10:05 [id number] 11/13/22 10:23 11/13/22 10:05 - Today's Visit Information Type of service Initial Visit Arrival Mode Ambulatory Transfer Assistance None Accompanied by brother in law Patient Identification Verified (Name & Yes ) Patient Requires Transmission-Based No Precautions Safety Precautions NA Height and Weight Height 5 ft 9 in Weight 310 lb Weight in Pounds 310.0 lbs Body Mass Index (BMI) 45.8 BMI Classification Obese BSA - Rashawn 2.49 Vital Signs Temperature (97.8 F-99.1 F) 97.9 F Temperature Source Temporal Pulse Rate (60-100) 71 Pulse Location Monitor Respiratory Rate (12-18) 20 H Respiratory rate source Observation Oxygen Delivery Method Room Air Blood Pressure (90/60-120/80) 161/75 H Blood Pressure Mean 103 Source Monitor Position Sitting Blood Pressure Location Left Arm History Since Last Visit- (Skip if this is Patient's initial visit) Left Footwear Regular Shoe Right Footwear Regular Shoe Pain Scale: 0-10 Numeric Is Patient Pain Free? Yes Lower Extremity Assessment/ Foot Assessment/ Toe Nail Assessment Right -Posterior Tibial Palpable No -Posterior Tibial Doppler Multiphasic -Dorsalis Pedis Palpable No -Dorsalis Pedis Doppler Multiphasic -Extremity Color Red,Hemosiderin -Hair Growth on Legs No -Hair Growth on Toes No -Temperature of Extremity Warm -Capillary Refill Less than 3 Seconds -Dependent Rubor No -Blanched when Elevated No -Lipodermatosclerosis No -Other Deformity No -Prior Foot Ulcer No -Charcot Joint No -Prior Amputation No -Thick Yes -Discolored Yes -Deformed Yes -Improper Length & Hygeine Yes Left -Posterior Tibial Palpable No -Posterior Tibial Doppler Monophasic -Dorsalis Pedis Palpable No -Dorsalis Pedis Doppler Monophasic -Extremity Color Red,Hemosiderin -Hair Growth on Legs No -Hair Growth on Toes No -Temperature of Extremity Warm -Capillary Refill Less than 3 Seconds -Dependent Rubor No -Blanched when Elevated No -Lipodermatosclerosis No -Other Deformity No -Prior Foot Ulcer No -Charcot Joint No -Prior Amputation No -Thick Yes -Discolored Yes -Deformed Yes -Improper Length & Hygeine Yes Communication Assessment Preferred language [place] Meat Carrier Required No Able to Read Yes Able to Write Yes Communication Tools None Caregiver Communication Skills No Impairment Impairment Right Hearing Abillity Normal Left Hearing Abillity Normal Visual Assistive Devices Glasses Teaching Assessment Preferences Verbal,Written, Audio/Visual, Demonstration Barriers to Learning None Readiness To Learn Excellent Willingness to Engage in Self Management High Activies Readiness to Engage in Self Management High Activities Anxiety Level Calm Cooperation Cooperative Perception Coherent Interest in Health Problem Asks Questions Education Importance Acknowledges Need Does Patient Smoke tobacco or other Yes substances Is Patient Diabetic No Functional Assessment Recent Decline in Ability to Perform Denies Any Declines Assistive Device With Patient No Culture/Confucianism/Lcac Radar Operator/Navigator Cultural/Confucianism Needs that may affect No Treatment Plan Would you allow our hospital creative recruiter to No meet you for the purpose of spiritual/ emotional support? Lcac Radar Operator/Navigator to contact place of islam No WC - Nurse 1 - General Ulcer Measurement Start: 11/13/22 10:05 Freq: Status: Active Protocol: Activity Type Activity Date Activity User E-sign Co-sign Detail Recorded Client Recorded Date Recorded By Document 11/13/22 10:05 [id number] 11/13/22 10:23 11/13/22 10:05 Wound Center Nurse 1 #3 right great toe plantar -Combined with other wound No -Current Size (cm) - Length 0.2 -Current Size (cm) - Width 3.0 -Current Size (cm) - Depth 0.3 -Total Square Cm 0.60 -Date of Last Picture (Recall this 11/13/22 field) -Photo Taken Yes -Epithelialization None Present -Tunneling No -Undermining/Tunneling No -Circular Undermining No -Exudate Amt Small -Exudate Type Serous -Wound Margin Flat & Intact -Granulation Amt None Present (0 %) -Granulation Quality N/A -Slough/Fibrin Yes -Necrosis Amt Large (67-100%) -Necrotic Tissue Type Adherent Slough -Structure Exposed N/A -Texture (Jessica-wound Skin Appearance) Assessed, Localized Edema ,Scarring -Moisture (Jessica-wound Skin Appearance) Assessed,Dry/ Scaly -Color (Jessica-wound Skin Appearance) Assessed, Hemosiderin Staining,Rubor -Temperature (Jessica-wound Skin No Abnormality Appearance) (Pt Warm) -Tenderness on Palpation (Jessica-wound No Skin Appearance) -Ulcer Cleansing Soap and Water -Foul Odor after Cleansing No -Anesthetic Used 4% Lidocaine Solution #2 left posterior -Combined with other wound No -Current Size (cm) - Length 1.5 -Current Size (cm) - Width 1.8 -Current Size (cm) - Depth 0.1 -Total Square Cm 2.70 -Date of Last Picture (Recall this 11/13/22 field) -Photo Taken Yes -Epithelialization None Present -Tunneling No -Undermining/Tunneling No -Circular Undermining No -Exudate Amt Large -Exudate Type Serous -Wound Margin Flat & Intact -Granulation Amt None Present (0 %) -Granulation Quality N/A -Slough/Fibrin Yes -Necrosis Amt Large (67-100%) -Necrotic Tissue Type Adherent Slough -Structure Exposed N/A -Texture (Jessica-wound Skin Appearance) Assessed, Localized Edema -Moisture (Jessica-wound Skin Appearance) Assessed,Dry/ Scaly -Color (Jessica-wound Skin Appearance) Assessed, Hemosiderin Staining,Rubor -Temperature (Jessica-wound Skin No Abnormality Appearance) (Pt Warm) -Tenderness on Palpation (Jessica-wound No Skin Appearance) -Ulcer Cleansing Soap and Water -Foul Odor after Cleansing No -Anesthetic Used 4% Lidocaine Solution Lower Limb Edema Present Yes Right Calf (cm) 44.0 Right Ankle (cm) 29.1 Left Calf (cm) 54.7 Left Ankle (cm) 32.8 WC - Nurse 2 - General Ulcer CM Notes Start: 11/13/22 10:05 Freq: Status: Active Protocol: Activity Type Activity Date Activity User E-sign Co-sign Detail Recorded Client Recorded Date Recorded By Document 11/13/22 11:27 PL [id number] 11/13/22 11:29 PL 11/13/22 11:27 Wound Center Nurse 2 #3 right great toe plantar -Procedure Performed No #2 left posterior -Time 10:48 -Correct Patient Yes -Correct Side, Site, Position Yes -Correct Procedure Yes -Procedure Performed Yes -Type of Procedure Debridement -Clinical Debridement Subcutaneous -Tissue Removed Subcutaneous -Post Debridement (cm) - Length 1.5 -Post Debridement (cm) - Width 1.8 -Post Debridement (cm) - Depth 0.1 -Total Square (Post) (cm) 2.70 -Area of Debridement (cm) - Length 1.5 -Area of Debridement (cm) - Width 1.8 -Total Square (Area) (cm) 2.70 -Tunneling No -Undermining/Tunneling No -Circular Undermining No -Wound/Ulcer Outcome Not Healed -Ulcer Cleansing Rinsed/ Irrigated with Saline -Foul Odor after Cleansing No -Bioengineered Tissue No -Bleeding Controlled with Pressure -Treatment Response Procedure Tolerated Well -Debridement - Subq, 1st 20sq cm Yes Pain Scale: 0-10 Numeric Is Patient Pain Free? Yes - Nurse 3 - General Ulcer D/C NN Start: 11/13/22 10:05 Freq: Status: Active Protocol: Activity Type Activity Date Activity User E-sign Co-sign Detail Recorded Client Recorded Date Recorded By Document 11/13/22 11:14 [facility] [id number] 11/13/22 11:17 [facility] 11/13/22 11:14 Wound Care Center Nurse 3 #3 right great toe plantar -Ulcer Cleansing Rinsed/ Irrigated with Saline -Foul Odor after Cleansing No -Primary Dressing Applied C Hydrogel ($) -Other Dressing PER [place] WEB SUPPORT ENGINEER -Primary Dressing Covered/Secured with Dry Gauze #2 left posterior -Ulcer Cleansing Rinsed/ Irrigated with Saline -Foul Odor after Cleansing No -Primary Dressing Applied Promogran -Other Dressing UNNA; PER [place] WEB SUPPORT ENGINEER -Promogran 1 BLE -Lotion applied to leg before No compression wrap -Multi-Layered Wrap Application Unna Boot - Bilateral ($) -Other APPLIED PER [place] WEB SUPPORT ENGINEER Treatment Response Procedure Tolerated Well Pain Scale: 0-10 Numeric Is Patient Pain Free? 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332 - Chronic venous hypertension (idiopathic) with ulcer and inflammation of left lower extremity (4) Pressure ulcer: CODE(S): L89.90 - Pressure ulcer of unspecified site, unspecified stage QUALIFIERS: Pressure injury location: calf Pressure injury stage: stage 2 Laterality: left Qualified Code(s): L89.892 - Pressure ulcer of other site, stage 2 (5) Hx of ventral hernia repair: CODE(S): Z98.890 - Other specified postprocedural states; Z87.19 - Personal history of other diseases of the digestive system (6) Venous insufficiency of both lower extremities: CODE(S): I87.2 - Venous insufficiency (chronic) (peripheral) (7) History of deep vein thrombosis (DVT) of lower extremity: CODE(S): Z86.718 - Personal history of other venous thrombosis and embolism (8) Hyperlipidemia: CODE(S): E78.5 - Hyperlipidemia, unspecified (9) Exertional shortness of breath: CODE(S): R06.02 - Shortness of breath (10) Chronic anticoagulation: CODE(S): Z79.01 - jail (current) use of anticoagulants (11) History of pulmonary embolism: CODE(S): Z86.711 - Personal history of pulmonary embolism (12) Tobacco abuse: CODE(S): Z72.0 - Tobacco use (13) Tobacco abuse counseling: CODE(S): Z71.6 - Tobacco abuse counseling (14) Morbid obesity: CODE(S): E66.01 - Morbid (severe) obesity due to excess calories (15) Left leg swelling: CODE(S): M79.89 - Other specified soft tissue disorders (16) Right leg swelling: CODE(S): M79.89 - Other specified soft tissue disorders PLAN: Plan This is a 62-year-old morbidly obese male who presents with evidence of bilateral lower extremity swelling and edema, and an ulceration on his left posterior calf. His presenting symptoms and manifestations appear to be due to a host of factors, including immobility, chronic dependency, morbid obesity, and the presence of chronic venous insufficiency. The patient has a history of bilateral lower extremity deep vein thrombosis on several occasions, as well as pulmonary embolism. He suffers from chronic venous insufficiency, venous hypertension with inflammation, and postphlebitic syndrome with inflammation and ulceration. The ulceration on the left posterior calf may also well be due to pressure phenomenon, as the patient spends a great deal of time in his recliner, and it appears likely that the posterior calf rests against the foot rest, perhaps creating a pressure effect. Offloading measures have been discussed and encouraged. The patient has been encouraged to elevate his lower extremities is much as possible. Leg elevation is to be to heart level, or higher. This is to be achieved during both daytime and nighttime hours. Prolonged idle sitting has been discouraged. Activity has been encouraged. Weight loss has also been recommended. Offloading measures are also to be implemented. We are to implement the use of Promogran topically on the left posterior calf ulceration. Unna boots will be applied bilaterally, and will be changed twice weekly. The Unna boots will provide the necessary degree of compression, and the zinc oxide will address issues related to his venous stasis dermatitis. The erythema in the gaiter areas bilaterally is suspected to be inflammatory rather than cellulitic. This will be monitored serially. The patient is to return in 1 week for reassessment. A family member at the bedside has been instructed in the appropriate means of management. Home health nursing care will be requested, though may not be assured. We are to use collagen hydrogel topically on the ulceration on the plantar aspect of the right great toe. Total time: 55 minutes
[2022-11-15 13:53] VITALS: BP 119/65; PULSE 71; TEMP 36.6; BMI 45.8
--- NOTE | 2022-11-20 11:11 | HP.PCM_ITS ---
History of Present Illness Date of Service: 11/20/22 Chief Complaint: Left posterior calf ulceration History of Wound: This is a 62-year-old morbidly obese male who presented with an ulceration on the left posterior calf. The patient was hospitalized at [facility] in [place], [place] recently for 2 days in treatment for bilateral lower extremity cellulitis. He was treated with intravenous Augmentin during his hospital stay, and discharged on a course of Keflex. The patient has a history of lower extremity deep vein thrombosis on at least 3 occasions. He also has had pulmonary emboli in the past. He is currently receiving lifelong systemic anticoagulation with Apixaban 5 mg p.o. twice daily. The patient is known to have chronic swelling in his lower extremities. He is not very active. He sleeps in a recliner with his legs in a dependent position. He sits for long periods each day while at home. 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 His BMI is 45.8. He has been soaking his left foot in soapy water in treatment for a skin tear on the plantar aspect of his left great toe. Venous duplex examination in May 2019 revealed bilateral superficial venous incompetence. A noninvasive lower extremity arterial study at the same time revealed no evidence of significant arterial occlusive disease. 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 Pressure ulcer Right leg swelling Tobacco abuse Tobacco abuse counseling Ulcer of left calf Venous hypertension, chronic, with ulcer and inflammation Venous insufficiency of both lower extremities Home Medications furosemide 40 mg tablet 40 mg PO BID 04/09/19 [History Last Taken Unknown] simvastatin 40 mg tablet 40 mg PO QHS 04/09/19 [History Last Taken Unknown] apixaban 5 mg tablet (Eliquis) 5 mg PO BID 11/13/22 [History Last Taken Unknown] Allergy/AdvReac Type Severity Reaction Status Date / Time No Known Allergies Allergy Verified 11/13/22 10:53 Family History Father Diabetes Heart disease Sister Hypertension Surgical History Hx of ventral hernia repair Social History Smoking Status: Never smoker alcohol intake: current alcohol intake frequency: holidays/special occasions only Vital Signs Vital Signs Vital Signs: Weight Weight: 310 lb Body Mass Index (BMI) 45.8 Physical Exam Const alert, oriented x3, no apparent distress and well nourished Constitutional Narrative: The patient is morbidly obese. His BMI is 45.8. General Appearance: cooperative, comfortable, well developed and disheveled Orientation / Consciousness: awake, oriented to person, oriented to place and oriented to time HEENT normocephalic and head/scalp atraumatic Head and Scalp: normal to inspection, normocephalic and atraumatic External Ear: external ears normal Eyes PERRL and EOMs intact bilaterally General Eye: normal appearance of both eyes Resp normal respiratory effort, normal air movement, no retractions and no use of accessory muscles Effort and Inspection: able to speak in complete sentences Extremity no calf tenderness General Extremity: Negative for clubbing or cyanosis Skin Wound Narrative: Swelling and edema persist in the patient's lower extremities, though somewhat improved from his prior visit. Lipodermatosclerosis and hemosiderin staining are noted in the gaiter areas bilaterally. Mild, diffuse erythema is noted in the gaiter areas bilaterally, suspected to be inflammatory in nature, rather than cellulitic. An ulceration is noted on the left posterior calf. Dimensions are documented elsewhere. There is a small amount of bioburden and nonviable tissue present. The ulceration is generally pink and healthy in appearance, improved from the patient's prior visit. A cleft is noted on the plantar aspect of the right great toe, with disruption of the epidermis, but without evidence of infection or drainage. Dry, scaly epidermis is noted at the rim of both feet, appearing to represent exfoliating epidermis. Neuro oriented x3, CN's II-XII intact bilaterally and moves all extremities Sensorium / Orientation: awake, alert, oriented to person, oriented to place and oriented to time Psych Appearance: grossly normal and appropriate Attitude: calm Activity / Motor Behavior: appropriate eye contact Speech: normal speech Mood & Affect: euthymic mood Thought Process: normal thought process Thought Content: normal thought content Attention / Concentration: attention grossly intact Debridement Note Debridement Note Wound debrided: Left posterior calf ulceration Laterality: Left Type of Debridement: Excisional debridement Anesthesia Used: 5% Lidocaine Gel Depth: Down to and including healthy tissue and in the subcutaneous layer Percentage of wound debrided: 100 Instrument Used: 5mm curette Tissue Removed: Bioburden and nonviable/necrotic tissue Severity: Fat Layer Exposed Amount of bleeding with debridement: Mild Bleeding Controlled with: Compression and gauze Patient tolerated procedure: Patient tolerated procedure well Post-Debridement Measurements and Additional Note: Post-Debridement Measurements/Treatment - Nurse 1 - General Ulcer Assessment Start: 11/13/22 10:05 Freq: Status: Active Protocol: ABIGAILBig Bears RecyclingAB Activity Type Activity Date Activity User E-sign Co-sign Detail Recorded Client Recorded Date Recorded By Document 11/13/22 10:05 MW [id number] 11/13/22 10:23 MW Document 11/15/22 13:53 AK [id number] 11/15/22 13:55 AK 11/13/22 11/15/22 10:05 13:53 - Today's Visit Information Type of service Initial Visit Nurse-only Visit Arrival Mode Ambulatory Ambulatory Transfer Assistance None Accompanied by brother in law Patient Identification Verified (Name & Yes Yes ) Patient Requires Transmission-Based No No Precautions Safety Precautions NA Height and Weight Height 5 ft 9 in Weight 310 lb Weight in Pounds 310.0 lbs Body Mass Index (BMI) 45.8 45.8 BMI Classification Obese Obese BSA - Rashawn 2.49 Vital Signs Temperature (97.8 F-99.1 F) 97.9 F 97.9 F Temperature Source Temporal Temporal Pulse Rate (60-100) 71 71 Pulse Location Monitor Monitor Respiratory Rate (12-18) 20 H Respiratory rate source Observation Oxygen Delivery Method Room Air Blood Pressure (90/60-120/80) 161/75 H 119/65 Blood Pressure Mean 103 83 Source Monitor Monitor Position Sitting Blood Pressure Location Left Arm History Since Last Visit- (Skip if this is Patient's initial visit) Have you changed medications since your No last visit? Any new allergies or adverse reactions No Had a fall/change in ADL's that may No increase risk of falls Signs or symptoms of abuse and/or No neglect since last visit Have you been in the hospital since your No last visit? Has dressing in place as prescribed Yes Has compression in place as prescribed Yes Has offloadiing in place as prescribed N/A Experienced any changes in pain level or No management Left Footwear Regular Shoe Regular Shoe Right Footwear Regular Shoe Regular Shoe Pain Scale: 0-10 Numeric Is Patient Pain Free? Yes No Lower Extremity Assessment/ Foot Assessment/ Toe Nail Assessment Right -Posterior Tibial Palpable No -Posterior Tibial Doppler Multiphasic -Dorsalis Pedis Palpable No -Dorsalis Pedis Doppler Multiphasic -Extremity Color Red,Hemosiderin -Hair Growth on Legs No -Hair Growth on Toes No -Temperature of Extremity Warm -Capillary Refill Less than 3 Seconds -Dependent Rubor No -Blanched when Elevated No -Lipodermatosclerosis No -Other Deformity No -Prior Foot Ulcer No -Charcot Joint No -Prior Amputation No -Thick Yes -Discolored Yes -Deformed Yes -Improper Length & Hygeine Yes Left -Posterior Tibial Palpable No -Posterior Tibial Doppler Monophasic -Dorsalis Pedis Palpable No -Dorsalis Pedis Doppler Monophasic -Extremity Color Red,Hemosiderin -Hair Growth on Legs No -Hair Growth on Toes No -Temperature of Extremity Warm -Capillary Refill Less than 3 Seconds -Dependent Rubor No -Blanched when Elevated No -Lipodermatosclerosis No -Other Deformity No -Prior Foot Ulcer No -Charcot Joint No -Prior Amputation No -Thick Yes -Discolored Yes -Deformed Yes -Improper Length & Hygeine Yes Communication Assessment Preferred language Czech Net Web Developer Required No Able to Read Yes Able to Write Yes Communication Tools None Caregiver Communication Skills No Impairment Impairment Right Hearing Abillity Normal Left Hearing Abillity Normal Visual Assistive Devices Glasses Teaching Assessment Preferences Verbal,Written, Audio/Visual, Demonstration Barriers to Learning None Readiness To Learn Excellent Willingness to Engage in Self Management High Activies Readiness to Engage in Self Management High Activities Anxiety Level Calm Cooperation Cooperative Perception Coherent Interest in Health Problem Asks Questions Education Importance Acknowledges Need Does Patient Smoke tobacco or other Yes substances Is Patient Diabetic No Functional Assessment Recent Decline in Ability to Perform Denies Any Declines Assistive Device With Patient No Culture/Druze/Separations Scientist Cultural/Druze Needs that may affect No Treatment Plan Would you allow our hospital camera prototyping engineer to No meet you for the purpose of spiritual/ emotional support? Separations Scientist to contact place of mormonism No WC - Nurse 1 - General Ulcer Measurement Start: 06/13/23 10:05 Freq: Status: Active Protocol: Activity Type Activity Date Activity User E-sign Co-sign Detail Recorded Client Recorded Date Recorded By Document 11/13/22 10:05 MW [id number] 11/13/22 10:23 MW 11/13/22 10:05 Wound Center Nurse 1 #3 right great toe plantar -Combined with other wound No -Current Size (cm) - Length 0.2 -Current Size (cm) - Width 3.0 -Current Size (cm) - Depth 0.3 -Total Square Cm 0.60 -Date of Last Picture (Recall this 11/13/22 field) -Photo Taken Yes -Epithelialization None Present -Tunneling No -Undermining/Tunneling No -Circular Undermining No -Exudate Amt Small -Exudate Type Serous -Wound Margin Flat & Intact -Granulation Amt None Present (0 %) -Granulation Quality N/A -Slough/Fibrin Yes -Necrosis Amt Large (67-100%) -Necrotic Tissue Type Adherent Slough -Structure Exposed N/A -Texture (Jessica-wound Skin Appearance) Assessed, Localized Edema ,Scarring -Moisture (Jessica-wound Skin Appearance) Assessed,Dry/ Scaly -Color (Jessica-wound Skin Appearance) Assessed, Hemosiderin Staining,Rubor -Temperature (Jessica-wound Skin No Abnormality Appearance) (Pt Warm) -Tenderness on Palpation (Jessica-wound No Skin Appearance) -Ulcer Cleansing Soap and Water -Foul Odor after Cleansing No -Anesthetic Used 4% Lidocaine Solution #2 left posterior -Combined with other wound No -Current Size (cm) - Length 1.5 -Current Size (cm) - Width 1.8 -Current Size (cm) - Depth 0.1 -Total Square Cm 2.70 -Date of Last Picture (Recall this 11/13/22 field) -Photo Taken Yes -Epithelialization None Present -Tunneling No -Undermining/Tunneling No -Circular Undermining No -Exudate Amt Large -Exudate Type Serous -Wound Margin Flat & Intact -Granulation Amt None Present (0 %) -Granulation Quality N/A -Slough/Fibrin Yes -Necrosis Amt Large (67-100%) -Necrotic Tissue Type Adherent Slough -Structure Exposed N/A -Texture (Jessica-wound Skin Appearance) Assessed, Localized Edema -Moisture (Jessica-wound Skin Appearance) Assessed,Dry/ Scaly -Color (Jessica-wound Skin Appearance) Assessed, Hemosiderin Staining,Rubor -Temperature (Jessica-wound Skin No Abnormality Appearance) (Pt Warm) -Tenderness on Palpation (Jessica-wound No Skin Appearance) -Ulcer Cleansing Soap and Water -Foul Odor after Cleansing No -Anesthetic Used 4% Lidocaine Solution Lower Limb Edema Present Yes Right Calf (cm) 44.0 Right Ankle (cm) 29.1 Left Calf (cm) 54.7 Left Ankle (cm) 32.8 WC - Nurse 2 - General Ulcer CM Notes Start: 11/13/22 10:05 Freq: Status: Active Protocol: Activity Type Activity Date Activity User E-sign Co-sign Detail Recorded Client Recorded Date Recorded By Document 11/13/22 11:27 PL [id number] 11/13/22 11:29 PL 11/13/22 11:27 Wound Center Nurse 2 #3 right great toe plantar -Procedure Performed No #2 left posterior -Time 10:48 -Correct Patient Yes -Correct Side, Site, Position Yes -Correct Procedure Yes -Procedure Performed Yes -Type of Procedure Debridement -Clinical Debridement Subcutaneous -Tissue Removed Subcutaneous -Post Debridement (cm) - Length 1.5 -Post Debridement (cm) - Width 1.8 -Post Debridement (cm) - Depth 0.1 -Total Square (Post) (cm) 2.70 -Area of Debridement (cm) - Length 1.5 -Area of Debridement (cm) - Width 1.8 -Total Square (Area) (cm) 2.70 -Tunneling No -Undermining/Tunneling No -Circular Undermining No -Wound/Ulcer Outcome Not Healed -Ulcer Cleansing Rinsed/ Irrigated with Saline -Foul Odor after Cleansing No -Bioengineered Tissue No -Bleeding Controlled with Pressure -Treatment Response Procedure Tolerated Well -Debridement - Subq, 1st 20sq cm Yes Pain Scale: 0-10 Numeric Is Patient Pain Free? Yes - Nurse 3 - General Ulcer D/C NN Start: 11/13/22 10:05 Freq: Status: Active Protocol: Activity Type Activity Date Activity User E-sign Co-sign Detail Recorded Client Recorded Date Recorded By Document 11/13/22 11:14 [facility] [id number] 11/13/22 11:17 BMF Document 11/15/22 13:53 IN [id number] 11/15/22 13:55 IN 11/13/22 11/15/22 11:14 13:53 Wound Care Center Nurse 3 #3 right great toe plantar -Ulcer Cleansing Rinsed/ Soap and Water Irrigated with Saline -Foul Odor after Cleansing No No -Negative Pressure Wound Therapy N/A -Primary Dressing Applied C Hydrogel ($) -Other Dressing PER [facility] hydrogel -Primary Dressing Covered/Secured with Dry Gauze Dry Gauze & Roll Gauze, Secured with Tape #2 left posterior -Ulcer Cleansing Rinsed/ Soap and Water Irrigated with Saline -Foul Odor after Cleansing No No -Negative Pressure Wound Therapy N/A -Primary Dressing Applied Promogran Promogran -Other Dressing UNNA; PER [facility] -Primary Dressing Covered/Secured with Dry Gauze -Promogran 1 1 BLE -Lotion applied to leg before No Yes compression wrap -Multi-Layered Wrap Application Unna Boot - Unna Boot - Bilateral ($) Bilateral ($) -Other APPLIED PER [facility] Treatment Response Procedure Tolerated Well Vital Signs Temperature (97.8 F-99.1 F) 97.9 F Temperature Source Temporal Pulse Rate (60-100) 71 Pulse Location Monitor Blood Pressure (90/60-120/80) 119/65 Blood Pressure Mean 83 Source Monitor Pain Scale: 0-10 Numeric Is Patient Pain Free? 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332 - Chronic venous hypertension (idiopathic) with ulcer and inflammation of left lower extremity (4) Pressure ulcer: CODE(S): L89.90 - Pressure ulcer of unspecified site, unspecified stage QUALIFIERS: Pressure injury location: calf Pressure injury stage: stage 2 Laterality: left Qualified Code(s): L89.892 - Pressure ulcer of other site, stage 2 (5) Hx of ventral hernia repair: CODE(S): Z98.890 - Other specified postprocedural states; Z87.19 - Personal history of other diseases of the digestive system (6) Venous insufficiency of both lower extremities: CODE(S): I87.2 - Venous insufficiency (chronic) (peripheral) (7) History of deep vein thrombosis (DVT) of lower extremity: CODE(S): Z86.718 - Personal history of other venous thrombosis and embolism (8) Hyperlipidemia: CODE(S): E78.5 - Hyperlipidemia, unspecified (9) Exertional shortness of breath: CODE(S): R06.02 - Shortness of breath (10) Chronic anticoagulation: CODE(S): Z79.01 - termination clerk (current) use of anticoagulants (11) History of pulmonary embolism: CODE(S): Z86.711 - Personal history of pulmonary embolism (12) Tobacco abuse: CODE(S): Z72.0 - Tobacco use (13) Tobacco abuse counseling: CODE(S): Z71.6 - Tobacco abuse counseling (14) Morbid obesity: CODE(S): E66.01 - Morbid (severe) obesity due to excess calories (15) Left leg swelling: CODE(S): M79.89 - Other specified soft tissue disorders (16) Right leg swelling: CODE(S): M79.89 - Other specified soft tissue disorders PLAN: Plan This is a 62-year-old morbidly obese male who presented with evidence of bilateral lower extremity swelling and edema, and an ulceration on his left posterior calf. His presenting symptoms and manifestations appear to be due to a host of factors, including immobility, chronic dependency, morbid obesity, and the presence of chronic venous insufficiency. The patient has a history of bilateral lower extremity deep vein thrombosis on several occasions, as well as pulmonary embolism. He suffers from chronic venous insufficiency, venous hypertension with inflammation, and postphlebitic syndrome with inflammation and ulceration. The ulceration on the left posterior calf may also well be due to pressure phenomenon, as the patient spends a great deal of time in his recliner, and it appears likely that the posterior calf rests against the foot rest, perhaps creating a pressure effect. Offloading measures have been discussed and encouraged. The patient has been encouraged to elevate his lower extremities is much as possible. Leg elevation is to be to heart level, or higher. This is to be achieved during both daytime and nighttime hours. Prolonged idle sitting has been discouraged. Activity has been encouraged. Weight loss has also been recommended. Offloading measures are also to be continued. We are to continue the use of Promogran topically on the left posterior calf ulceration. Unna boots will be applied bilaterally, and will be changed twice weekly. The Unna boots will provide the necessary degree of compression, and the zinc oxide will address issues related to his venous stasis dermatitis and exfoliating epithelium. The erythema in the gaiter areas bilaterally is suspected to be inflammatory rather than cellulitic, and is improving. This will be monitored serially. The patient is to return in 1 week for reassessment. We are to continue the use of collagen hydrogel topically on the ulceration on the plantar aspect of the right great toe. Total time: 26 minutes
[2022-11-20 11:24] VITALS: BP 143/71; TEMP 35.9; BMI 45.8
[2022-11-22 13:58] VITALS: BMI 45.8
[2022-11-27 10:17] VITALS: BP 131/66; PULSE 68; RESP 16; TEMP 36.8; BMI 45.8
--- NOTE | 2022-11-27 13:15 | PCM.WC.HP ---
History of Present Illness Date of Service: 11/27/22 Chief Complaint: Left posterior calf ulceration History of Wound: This is a 62-year-old morbidly obese male who presented with an ulceration on the left posterior calf. The patient was hospitalized at [facility] in [place], [place] recently for 2 days in treatment for bilateral lower extremity cellulitis. He was treated with intravenous Augmentin during his hospital stay, and discharged on a course of Keflex. The patient has a history of lower extremity deep vein thrombosis on at least 3 occasions. He also has had pulmonary emboli in the past. He is currently receiving lifelong systemic anticoagulation with Apixaban 5 mg p.o. twice daily. The patient is known to have chronic swelling in his lower extremities. He is not very active. He sleeps in a recliner with his legs in a dependent position. He sits for long periods each day while at home. 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 His BMI is 45.8. He has been soaking his left foot in soapy water in treatment for a skin tear on the plantar aspect of his left great toe. Venous duplex examination in May 2019 revealed bilateral superficial venous incompetence. A noninvasive lower extremity arterial study at the same time revealed no evidence of significant arterial occlusive disease. 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 Pressure ulcer Right leg swelling Tobacco abuse Tobacco abuse counseling Ulcer of left calf Venous hypertension, chronic, with ulcer and inflammation Venous insufficiency of both lower extremities Home Medications furosemide 40 mg tablet 40 mg PO BID 04/09/19 [History Last Taken Unknown] simvastatin 40 mg tablet 40 mg PO QHS 04/09/19 [History Last Taken Unknown] apixaban 5 mg tablet (Eliquis) 5 mg PO BID 11/13/22 [History Last Taken Unknown] Allergy/AdvReac Type Severity Reaction Status Date / Time No Known Allergies Allergy Verified 11/13/22 10:53 Family History Father Diabetes Heart disease Sister Hypertension Surgical History Hx of ventral hernia repair Social History Smoking Status: Never smoker alcohol intake: current alcohol intake frequency: holidays/special occasions only Vital Signs Vital Signs Vital Signs: 11/27/22 10:17 Temperature 98.2 F Temperature Source Temporal Pulse Rate 68 Respiratory Rate 16 Blood Pressure 131/66 H Blood Pressure Mean 87 Blood Pressure Source Monitor Blood Pressure Position Sitting Blood Pressure Location Left Forearm Oxygen Delivery Method Room Air Weight Weight: 310 lb Body Mass Index (BMI) 45.8 Physical Exam Const alert, oriented x3, no apparent distress and well nourished Constitutional Narrative: The patient is morbidly obese. His BMI is 45.8. General Appearance: cooperative, comfortable, well developed and disheveled Orientation / Consciousness: awake, oriented to person, oriented to place and oriented to time HEENT normocephalic and head/scalp atraumatic Head and Scalp: normal to inspection, normocephalic and atraumatic External Ear: external ears normal Eyes PERRL and EOMs intact bilaterally General Eye: normal appearance of both eyes Resp normal respiratory effort, normal air movement, no retractions and no use of accessory muscles Effort and Inspection: able to speak in complete sentences Extremity no calf tenderness General Extremity: Negative for clubbing or cyanosis Skin Wound Narrative: Swelling and edema persist in the patient's lower extremities, though improved from his prior visit. Lipodermatosclerosis and hemosiderin staining are noted in the gaiter areas bilaterally. Mild, diffuse erythema is noted in the gaiter areas bilaterally, suspected to be inflammatory in nature, rather than cellulitic. This erythema appears to be diminishing. An ulceration is noted on the left posterior calf, which appears to be diminishing in size. Dimensions are documented elsewhere. There is a small amount of bioburden and nonviable tissue present. The ulceration is generally pink and healthy in appearance, improved from the patient's prior visit. The cleft on the plantar aspect of the right great toe appears to be completely healed and epithelialized. Dry, scaly, exfoliating epidermis is noted at the rim of both feet, and is diminishing in amount. Neuro oriented x3, CN's II-XII intact bilaterally and moves all extremities Sensorium / Orientation: awake, alert, oriented to person, oriented to place and oriented to time Psych Appearance: grossly normal and appropriate Attitude: calm Activity / Motor Behavior: appropriate eye contact Speech: normal speech Mood & Affect: euthymic mood Thought Process: normal thought process Thought Content: normal thought content Attention / Concentration: attention grossly intact Debridement Note Debridement Note Wound debrided: Left posterior calf ulceration Laterality: Left Type of Debridement: Excisional debridement Anesthesia Used: 5% Lidocaine Gel Depth: Down to and including healthy tissue and in the subcutaneous layer Percentage of wound debrided: 100 Instrument Used: 5mm curette Tissue Removed: Bioburden and nonviable/necrotic tissue Severity: Fat Layer Exposed Amount of bleeding with debridement: Mild Bleeding Controlled with: Compression and gauze Patient tolerated procedure: Patient tolerated procedure well Post-Debridement Measurements and Additional Note: Post-Debridement Measurements/Treatment - Nurse 1 - General Ulcer Assessment Start: 11/13/22 10:05 Freq: Status: Active Protocol: .AB Activity Type Activity Date Activity User E-sign Co-sign Detail Recorded Client Recorded Date Recorded By Document 11/13/22 10:05 [id number] 11/13/22 10:23 Document 11/15/22 13:53 OR [id number] 11/15/22 13:55 OR Document 11/20/22 11:24 OR [id number] 11/20/22 11:27 OR Document 11/22/22 13:58 [id number] 11/22/22 14:01 Document 11/27/22 10:17 [facility] [id number] 11/27/22 10:28 [facility] 11/13/22 11/15/22 11/20/22 10:05 13:53 11:24 - Today's Visit Information Type of service Initial Visit Nurse-only Follow-up Visit Visit (Physician/FOUNDER CHAIRMAN AND CHIEF CREATIVE OFFICER ) Arrival Mode Ambulatory Ambulatory Ambulatory Transfer Assistance None Accompanied by brother in law Patient Identification Verified (Name & Yes Yes Yes ) Patient Requires Transmission-Based No No No Precautions Safety Precautions NA Height and Weight Height 5 ft 9 in Weight 310 lb Weight in Pounds 310.0 lbs Body Mass Index (BMI) 45.8 45.8 45.8 BMI Classification Obese Obese Obese BSA - Rashawn 2.49 Vital Signs Temperature (97.8 F-99.1 F) 97.9 F 97.9 F 96.7 F L Temperature Source Temporal Temporal Temporal Pulse Rate (60-100) 71 71 Pulse Location Monitor Monitor Monitor Respiratory Rate (12-18) 20 H Respiratory rate source Observation Oxygen Delivery Method Room Air Blood Pressure (90/60-120/80) 161/75 H 119/65 143/71 H Blood Pressure Mean 103 83 95 Source Monitor Monitor Monitor Position Sitting Blood Pressure Location Left Arm History Since Last Visit- (Skip if this is Patient's initial visit) Have you changed medications since your No No last visit? Any new allergies or adverse reactions No No Had a fall/change in ADL's that may No No increase risk of falls Signs or symptoms of abuse and/or No No neglect since last visit Have you been in the hospital since your No No last visit? Has dressing in place as prescribed Yes Yes Has compression in place as prescribed Yes Yes Has offloadiing in place as prescribed N/A N/A Experienced any changes in pain level or No No management Left Footwear Regular Shoe Regular Shoe Regular Shoe Right Footwear Regular Shoe Regular Shoe Regular Shoe Pain Scale: 0-10 Numeric Is Patient Pain Free? Yes No No Lower Extremity Assessment/ Foot Assessment/ Toe Nail Assessment Right -Posterior Tibial Palpable No -Posterior Tibial Doppler Multiphasic -Dorsalis Pedis Palpable No -Dorsalis Pedis Doppler Multiphasic -Extremity Color Red,Hemosiderin -Hair Growth on Legs No -Hair Growth on Toes No -Temperature of Extremity Warm -Capillary Refill Less than 3 Seconds -Dependent Rubor No -Blanched when Elevated No -Lipodermatosclerosis No -Other Deformity No -Prior Foot Ulcer No -Charcot Joint No -Prior Amputation No -Thick Yes -Discolored Yes -Deformed Yes -Improper Length & Hygeine Yes Left -Posterior Tibial Palpable No -Posterior Tibial Doppler Monophasic -Dorsalis Pedis Palpable No -Dorsalis Pedis Doppler Monophasic -Extremity Color Red,Hemosiderin -Hair Growth on Legs No -Hair Growth on Toes No -Temperature of Extremity Warm -Capillary Refill Less than 3 Seconds -Dependent Rubor No -Blanched when Elevated No -Lipodermatosclerosis No -Other Deformity No -Prior Foot Ulcer No -Charcot Joint No -Prior Amputation No -Thick Yes -Discolored Yes -Deformed Yes -Improper Length & Hygeine Yes Communication Assessment Preferred language Georgian Program Development Specialist Required No Able to Read Yes Able to Write Yes Communication Tools None Caregiver Communication Skills No Impairment Impairment Right Hearing Abillity Normal Left Hearing Abillity Normal Visual Assistive Devices Glasses Teaching Assessment Preferences Verbal,Written, Audio/Visual, Demonstration Barriers to Learning None Readiness To Learn Excellent Willingness to Engage in Self Management High Activies Readiness to Engage in Self Management High Activities Anxiety Level Calm Cooperation Cooperative Perception Coherent Interest in Health Problem Asks Questions Education Importance Acknowledges Need Does Patient Smoke tobacco or other Yes substances Is Patient Diabetic No Functional Assessment Recent Decline in Ability to Perform Denies Any Declines Assistive Device With Patient No Culture/Taoism/Artificial Breeding Ranch Supervisor Cultural/Taoism Needs that may affect No Treatment Plan Would you allow our hospital network strategist to No meet you for the purpose of spiritual/ emotional support? Artificial Breeding Ranch Supervisor to contact place of faith No 11/22/22 11/27/22 13:58 10:17 WC - Today's Visit Information Type of service Nurse-only Follow-up Visit Visit (Physician/FOUNDER CHAIRMAN AND CHIEF CREATIVE OFFICER ) Arrival Mode Ambulatory Ambulatory Transfer Assistance None Accompanied by Patient Identification Verified (Name & Yes Yes ) Patient Requires Transmission-Based No No Precautions Safety Precautions Height and Weight Height Weight Weight in Pounds Body Mass Index (BMI) 45.8 45.8 BMI Classification Obese Obese BSA - Rashawn Vital Signs Temperature (97.8 F-99.1 F) 98.2 F Temperature Source Temporal Pulse Rate (60-100) 68 Pulse Location Monitor Respiratory Rate (12-18) 16 Respiratory rate source Observation Oxygen Delivery Method Room Air Blood Pressure (90/60-120/80) 131/66 H Blood Pressure Mean 87 Source Monitor Position Sitting Blood Pressure Location Left Forearm History Since Last Visit- (Skip if this is Patient's initial visit) Have you changed medications since your No No last visit? Any new allergies or adverse reactions No No Had a fall/change in ADL's that may No No increase risk of falls Signs or symptoms of abuse and/or No No neglect since last visit Have you been in the hospital since your No No last visit? Has dressing in place as prescribed No Has compression in place as prescribed No Has offloadiing in place as prescribed No N/A Experienced any changes in pain level or No No management Left Footwear Regular Shoe Diabetic Shoe Right Footwear Regular Shoe Diabetic Shoe Pain Scale: 0-10 Numeric Is Patient Pain Free? Yes Yes Lower Extremity Assessment/ Foot Assessment/ Toe Nail Assessment Right -Posterior Tibial Palpable -Posterior Tibial Doppler -Dorsalis Pedis Palpable -Dorsalis Pedis Doppler -Extremity Color -Hair Growth on Legs -Hair Growth on Toes -Temperature of Extremity -Capillary Refill -Dependent Rubor -Blanched when Elevated -Lipodermatosclerosis -Other Deformity -Prior Foot Ulcer -Charcot Joint -Prior Amputation -Thick -Discolored -Deformed -Improper Length & Hygeine Left -Posterior Tibial Palpable -Posterior Tibial Doppler -Dorsalis Pedis Palpable -Dorsalis Pedis Doppler -Extremity Color -Hair Growth on Legs -Hair Growth on Toes -Temperature of Extremity -Capillary Refill -Dependent Rubor -Blanched when Elevated -Lipodermatosclerosis -Other Deformity -Prior Foot Ulcer -Charcot Joint -Prior Amputation -Thick -Discolored -Deformed -Improper Length & Hygeine Communication Assessment Preferred language and literature division chair Required Able to Read Able to Write Communication Tools Caregiver Communication Skills Impairment Right Hearing Abillity Left Hearing Abillity Visual Assistive Devices Teaching Assessment Preferences Barriers to Learning Readiness To Learn Willingness to Engage in Self Management Activies Readiness to Engage in Self Management Activities Anxiety Level Cooperation Perception Interest in Health Problem Education Importance Does Patient Smoke tobacco or other substances Is Patient Diabetic Functional Assessment Recent Decline in Ability to Perform Assistive Device With Patient Culture/Taoism/Artificial Breeding Ranch Supervisor Cultural/Taoism Needs that may affect Treatment Plan Would you allow our special care hospital network strategist to meet you for the purpose of spiritual/ emotional support? Artificial Breeding Ranch Supervisor to contact place of faith WC - Nurse 1 - General Ulcer Measurement Start: 11/13/22 10:05 Freq: Status: Active Protocol: Activity Type Activity Date Activity User E-sign Co-sign Detail Recorded Client Recorded Date Recorded By Document 11/13/22 10:05 [id number] 11/13/22 10:23 MW Document 11/20/22 11:24 AK [id number] 11/20/22 11:27 AK Document 11/22/22 13:58 KW [id number] 11/22/22 14:01 KW Document 11/27/22 10:17 [facility] [id number] 11/27/22 10:28 BMF 0611/20/22 11/22/22 10:05 11:24 13:58 Wound Center Nurse 1 #3 right great toe plantar -Combined with other wound No No -Current Size (cm) - Length 0.2 -Current Size (cm) - Width 3.0 -Current Size (cm) - Depth 0.3 -Total Square Cm 0.60 -Date of Last Picture (Recall this 11/13/22 field) -Photo Taken Yes No -Epithelialization None Present -Tunneling No No -Undermining/Tunneling No No -Circular Undermining No No -Change in Wound Grade/Stage No -Exudate Amt Small None Present -Exudate Type Serous -Wound Margin Flat & Intact -Granulation Amt None Present (0 None Present (0 %) %) -Granulation Quality N/A -Slough/Fibrin Yes No -Necrosis Amt Large (67-100%) None Present (0 None Present (0 %) %) -Necrotic Tissue Type Adherent Slough -Structure Exposed N/A N/A None/Limited to Skin Breakdown -Texture (Jessica-wound Skin Appearance) Assessed, No Abnormality Assessed Localized Edema ,Scarring -Moisture (Jessica-wound Skin Appearance) Assessed,Dry/ Assessed,Dry/ Assessed,Dry/ Scaly Scaly Scaly -Color (Jessica-wound Skin Appearance) Assessed, No Abnormality, No Abnormality Hemosiderin Assessed Staining,Rubor -Temperature (Jessica-wound Skin No Abnormality No Abnormality No Abnormality Appearance) (Pt Warm) (Pt Warm) (Pt Warm) -Tenderness on Palpation (Jessica-wound No No Skin Appearance) -Ulcer Cleansing Soap and Water Rinsed/ Soap and Water Irrigated with Saline -Foul Odor after Cleansing No No -Anesthetic Used 4% Lidocaine Solution -Wound Comment(s) split #2 left posterior -Combined with other wound No No -Current Size (cm) - Length 1.5 1 1.2 -Current Size (cm) - Width 1.8 0.6 1.0 -Current Size (cm) - Depth 0.1 0.1 0.1 -Total Square Cm 2.70 0.6 1.20 -Date of Last Picture (Recall this 11/13/22 11/20/22 field) -Photo Taken Yes Yes No -Epithelialization None Present Small 1-33% -Tunneling No No No -Undermining/Tunneling No No No -Circular Undermining No No No -Change in Wound Grade/Stage No -Exudate Amt Large Medium Small -Exudate Type Serous Serosanguineous Serosanguineous -Wound Margin Flat & Intact Distinct, Distinct, Outline Outline Attached Attached -Granulation Amt None Present (0 Large (67-100%) Medium (34-66%) %) -Granulation Quality N/A Red Red -Slough/Fibrin Yes Yes Yes -Necrosis Amt Large (67-100%) Small (1-33%) -Necrotic Tissue Type Adherent Slough Adherent Slough -Structure Exposed N/A N/A None/Limited to Skin Breakdown -Texture (Jessica-wound Skin Appearance) Assessed, No Abnormality, Assessed Localized Edema Assessed -Moisture (Jessica-wound Skin Appearance) Assessed,Dry/ No Abnormality, Assessed Scaly Assessed -Color (Jessica-wound Skin Appearance) Assessed, No Abnormality, Assessed Hemosiderin Assessed Staining,Rubor -Temperature (Jessica-wound Skin No Abnormality No Abnormality No Abnormality Appearance) (Pt Warm) (Pt Warm) (Pt Warm) -Tenderness on Palpation (Jessica-wound No No Skin Appearance) -Ulcer Cleansing Soap and Water Rinsed/ Soap and Water Irrigated with Saline -Foul Odor after Cleansing No No -Anesthetic Used 4% Lidocaine 5% Lidocaine Solution Gel Lower Limb Edema Present Yes No Yes Right Calf (cm) 44.0 42.6 Point of measurement (cm from the medial 45 instep) Right Ankle (cm) 29.1 26 Point of Measurement (cm from the medial 26 instep) Left Calf (cm) 54.7 41 45.5 Left Ankle (cm) 32.8 21 28.7 11/27/22 10:17 Wound Center Nurse 1 #3 right great toe plantar -Combined with other wound No -Current Size (cm) - Length 0.1 -Current Size (cm) - Width 2.4 -Current Size (cm) - Depth 0.2 -Total Square Cm 0.24 -Date of Last Picture (Recall this 11/27/22 field) -Photo Taken Yes -Epithelialization Large 67-100% -Tunneling No -Undermining/Tunneling No -Circular Undermining No -Change in Wound Grade/Stage -Exudate Amt None Present -Exudate Type -Wound Margin -Granulation Amt -Granulation Quality -Slough/Fibrin -Necrosis Amt -Necrotic Tissue Type -Structure Exposed -Texture (Jessica-wound Skin Appearance) Assessed -Moisture (Jessica-wound Skin Appearance) Assessed -Color (Jessica-wound Skin Appearance) Assessed -Temperature (Jessica-wound Skin No Abnormality Appearance) (Pt Warm) -Tenderness on Palpation (Jessica-wound No Skin Appearance) -Ulcer Cleansing Rinsed/ Irrigated with Saline -Foul Odor after Cleansing No -Anesthetic Used 5% Lidocaine Gel -Wound Comment(s) #2 left posterior -Combined with other wound No -Current Size (cm) - Length 1 -Current Size (cm) - Width 0.8 -Current Size (cm) - Depth 0.1 -Total Square Cm 0.8 -Date of Last Picture (Recall this 11/27/22 field) -Photo Taken Yes -Epithelialization None Present -Tunneling No -Undermining/Tunneling No -Circular Undermining No -Change in Wound Grade/Stage -Exudate Amt None Present -Exudate Type -Wound Margin Distinct, Outline Attached -Granulation Amt None Present (0 %) -Granulation Quality -Slough/Fibrin Yes -Necrosis Amt Large (67-100%) -Necrotic Tissue Type Eschar -Structure Exposed -Texture (Jessica-wound Skin Appearance) Assessed, Scarring -Moisture (Jessica-wound Skin Appearance) Assessed -Color (Jessica-wound Skin Appearance) Assessed -Temperature (Jessica-wound Skin No Abnormality Appearance) (Pt Warm) -Tenderness on Palpation (Jessica-wound Skin Appearance) -Ulcer Cleansing Rinsed/ Irrigated with Saline -Foul Odor after Cleansing No -Anesthetic Used 5% Lidocaine Gel Lower Limb Edema Present Yes Right Calf (cm) 43.4 Point of measurement (cm from the medial instep) Right Ankle (cm) 26.2 Point of Measurement (cm from the medial instep) Left Calf (cm) 47.7 Left Ankle (cm) 27.8 WC - Nurse 2 - General Ulcer CM Notes Start: 11/13/22 10:05 Freq: Status: Active Protocol: Activity Type Activity Date Activity User E-sign Co-sign Detail Recorded Client Recorded Date Recorded By Document 11/13/22 11:27 PL [id number] 11/13/22 11:29 PL Document 11/20/22 12:16 PL [id number] 11/20/22 12:17 PL Document 11/27/22 12:22 PL [id number] 11/27/22 12:24 PL 11/13/22 11/20/22 11/27/22 11:27 12:16 12:22 Wound Center Nurse 2 #3 right great toe plantar -Procedure Performed No No No -Wound/Ulcer Outcome Healed- Epithelialized #2 left posterior -Time 10:48 10:35 10:47 -Correct Patient Yes Yes Yes -Correct Side, Site, Position Yes Yes Yes -Correct Procedure Yes Yes Yes -Procedure Performed Yes Yes Yes -Type of Procedure Debridement Debridement Debridement -Clinical Debridement Subcutaneous Subcutaneous Subcutaneous -Tissue Removed Subcutaneous Subcutaneous Subcutaneous -Post Debridement (cm) - Length 1.5 1.0 1.0 -Post Debridement (cm) - Width 1.8 0.6 0.8 -Post Debridement (cm) - Depth 0.1 0.1 0.1 -Total Square (Post) (cm) 2.70 0.60 0.80 -Area of Debridement (cm) - Length 1.5 1.0 1.0 -Area of Debridement (cm) - Width 1.8 0.6 0.8 -Total Square (Area) (cm) 2.70 0.60 0.80 -Tunneling No No No -Undermining/Tunneling No No No -Circular Undermining No No No -Wound/Ulcer Outcome Not Healed Not Healed Not Healed -Ulcer Cleansing Rinsed/ Rinsed/ Rinsed/ Irrigated with Irrigated with Irrigated with Saline Saline Saline -Foul Odor after Cleansing No No No -Bioengineered Tissue No No No -Bleeding Controlled with Pressure Pressure Pressure -Treatment Response Procedure Procedure Procedure Tolerated Well Tolerated Well Tolerated Well -Debridement - Subq, 1st 20sq cm Yes Yes Yes Pain Scale: 0-10 Numeric Is Patient Pain Free? Yes Yes Yes WC - Nurse 3 - General Ulcer D/C NN Start: 11/13/22 10:05 Freq: Status: Active Protocol: Activity Type Activity Date Activity User E-sign Co-sign Detail Recorded Client Recorded Date Recorded By Document 11/13/22 11:14 [facility] [id number] 11/13/22 11:17 BM Document 11/15/22 13:53 AK [id number] 11/15/22 13:55 AK Document 11/20/22 11:24 AK [id number] 11/20/22 11:27 AK Document 11/22/22 13:21 KW [id number] 11/22/22 13:58 KW Document 11/27/22 11:05 [facility] [id number] 11/27/22 11:06 BMF 11/13/22 11/15/22 11/20/22 11:14 13:53 11:24 Wound Care Center Nurse 3 #3 right great toe plantar -Ulcer Cleansing Rinsed/ Soap and Water Rinsed/ Irrigated with Irrigated with Saline Saline -Foul Odor after Cleansing No No No -Negative Pressure Wound Therapy N/A N/A -Primary Dressing Applied C Hydrogel ($) -Other Dressing PER [facility] hydrogel hydrogel -Primary Dressing Covered/Secured with Dry Gauze Dry Gauze & Dry Gauze, Roll Gauze, Secured with Secured with Tape Tape #2 left posterior -Ulcer Cleansing Rinsed/ Soap and Water Rinsed/ Irrigated with Irrigated with Saline Saline -Foul Odor after Cleansing No No No -Negative Pressure Wound Therapy N/A N/A -Primary Dressing Applied Promogran Promogran Promogran -Other Dressing UNNA; PER OR FINGER LIFT OPERATOR -Primary Dressing Covered/Secured with Dry Gauze -Promogran 1 1 1 BLE -Lotion applied to leg before No Yes compression wrap -Multi-Layered Wrap Application Unna Boot - Unna Boot - Unna Boot - Bilateral ($) Bilateral ($) Bilateral ($) -Other APPLIED PER [facility] Treatment Response Procedure Tolerated Well Vital Signs Temperature (97.8 F-99.1 F) 97.9 F 96.7 F L Temperature Source Temporal Temporal Pulse Rate (60-100) 71 Pulse Location Monitor Monitor Blood Pressure (90/60-120/80) 119/65 143/71 H Blood Pressure Mean 83 95 Source Monitor Monitor Pain Scale: 0-10 Numeric Is Patient Pain Free? Yes No No WC - Visit Discharge Discharge Condition Stable Ambulatory Status Ambulatory Transportation Private Auto Accompanied by BROTHER 11/22/22 11/27/22 13:21 11:05 Wound Care Center Nurse 3 #3 right great toe plantar -Ulcer Cleansing Soap and Water Rinsed/ Irrigated with Saline -Foul Odor after Cleansing No No -Negative Pressure Wound Therapy -Primary Dressing Applied -Other Dressing PROMOGRAN -Primary Dressing Covered/Secured with Dry Gauze & Dry Gauze, Roll Gauze, Secured with Secured with Tape Tape #2 left posterior -Ulcer Cleansing Soap and Water Rinsed/ Irrigated with Saline -Foul Odor after Cleansing No -Negative Pressure Wound Therapy -Primary Dressing Applied Promogran -Other Dressing PROMOGRAN -Primary Dressing Covered/Secured with Dry Gauze & Dry Gauze Roll Gauze, Secured with Tape -Promogran 1 BLE -Lotion applied to leg before compression wrap -Multi-Layered Wrap Application Unna Boot - Unna Boot - Bilateral ($) Bilateral ($) -Other Treatment Response Procedure Tolerated Well Vital Signs Temperature (97.8 F-99.1 F) Temperature Source Pulse Rate (60-100) Pulse Location Blood Pressure (90/60-120/80) Blood Pressure Mean Source Pain Scale: 0-10 Numeric Is Patient Pain Free? 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332 - Chronic venous hypertension (idiopathic) with ulcer and inflammation of left lower extremity (4) Pressure ulcer: CODE(S): L89.90 - Pressure ulcer of unspecified site, unspecified stage QUALIFIERS: Pressure injury location: calf Pressure injury stage: stage 2 Laterality: left Qualified Code(s): L89.892 - Pressure ulcer of other site, stage 2 (5) Hx of ventral hernia repair: CODE(S): Z98.890 - Other specified postprocedural states; Z87.19 - Personal history of other diseases of the digestive system (6) Venous insufficiency of both lower extremities: CODE(S): I87.2 - Venous insufficiency (chronic) (peripheral) (7) History of deep vein thrombosis (DVT) of lower extremity: CODE(S): Z86.718 - Personal history of other venous thrombosis and embolism (8) Hyperlipidemia: CODE(S): E78.5 - Hyperlipidemia, unspecified (9) Exertional shortness of breath: CODE(S): R06.02 - Shortness of breath (10) Chronic anticoagulation: CODE(S): Z79.01 - terminal press operator (current) use of anticoagulants (11) History of pulmonary embolism: CODE(S): Z86.711 - Personal history of pulmonary embolism (12) Tobacco abuse: CODE(S): Z72.0 - Tobacco use (13) Tobacco abuse counseling: CODE(S): Z71.6 - Tobacco abuse counseling (14) Morbid obesity: CODE(S): E66.01 - Morbid (severe) obesity due to excess calories (15) Left leg swelling: CODE(S): M79.89 - Other specified soft tissue disorders (16) Right leg swelling: CODE(S): M79.89 - Other specified soft tissue disorders PLAN: Plan This is a 62-year-old morbidly obese male who presented with evidence of bilateral lower extremity swelling and edema, and an ulceration on his left posterior calf. His presenting symptoms and manifestations appear to be due to a host of factors, including immobility, chronic dependency, morbid obesity, and the presence of chronic venous insufficiency. The patient has a history of bilateral lower extremity deep vein thrombosis on several occasions, as well as pulmonary embolism. He suffers from chronic venous insufficiency, venous hypertension with inflammation, and postphlebitic syndrome with inflammation and ulceration. The ulceration on the left posterior calf may also well be due to pressure phenomenon, as the patient spends a great deal of time in his recliner, and it appears likely that the posterior calf rests against the foot rest, perhaps creating a pressure effect. Offloading measures have been discussed and encouraged. The patient has been encouraged to elevate his lower extremities is much as possible. Leg elevation is to be to heart level, or higher. This is to be achieved during both daytime and nighttime hours. Prolonged idle sitting has been discouraged. Activity has been encouraged. Weight loss has also been recommended. Offloading measures are also to be continued. We are to continue the use of Promogran topically on the left posterior calf ulceration. Unna boots will be applied bilaterally, and will be changed twice weekly. The Unna boots will provide the necessary degree of compression, and the zinc oxide will address issues related to his venous stasis dermatitis and exfoliating epithelium. The erythema in the gaiter areas bilaterally is suspected to be inflammatory rather than cellulitic, and is improving. This will be monitored serially. The patient is to return in 1 week for reassessment. Total time: 28 minutes
[2022-11-29 13:16] VITALS: BP 133/63; PULSE 71; RESP 18; TEMP 35.9
== END 2022-11-30 23:59 | disposition home or self-care (01) ==
LOC: WC 13:15
PROVIDERS: PCP Nurse Practitioner Family; Referring Provider Nurse Practitioner Family; Visit Provider Surgery
DX: I87.312 Chronic venous hypertension (idiopathic) with ulcer of left lower extremity (principal); L89.892 Pressure ulcer of other site, stage 2; L97.222 Non-pressure chronic ulcer of left calf with fat layer exposed; I87.332 Chronic venous hypertension (idiopathic) with ulcer and inflammation of left lower extremity; E11.610 Type 2 diabetes mellitus with diabetic neuropathic arthropathy; E11.59 Type 2 diabetes mellitus with other circulatory complications; E66.01 Morbid (severe) obesity due to excess calories; Z68.42 Body mass index [BMI] 45.0-49.9, adult; Z72.0 Tobacco use; F41.9 Anxiety disorder, unspecified; Z71.6 Tobacco abuse counseling; E78.5 Hyperlipidemia, unspecified; I87.2 Venous insufficiency (chronic) (peripheral); Z79.01 Long term (current) use of anticoagulants; R60.0 Localized edema; Z87.19 Personal history of other diseases of the digestive system; Z86.718 Personal history of other venous thrombosis and embolism; R06.02 Shortness of breath; Z86.711 Personal history of pulmonary embolism; M79.89 Other specified soft tissue disorders
CPT/HCPCS: 11042; 29580; 99213; G0463

== ENCOUNTER 2022-12-11 10:30 | Outpatient (RCR) | payer BC, SELFPAY ==
[2022-12-01 01:39] VITALS: BP 133/63; PULSE 71; RESP 18; TEMP 35.9; BMI 45.8
[2022-12-05 14:36] VITALS: BP 133/73; PULSE 79; RESP 16; BMI 45.8
--- NOTE | 2022-12-05 16:11 | PCM.WC.HP ---
History of Present Illness Date of Service: 12/05/22 Chief Complaint: Left posterior calf ulceration History of Wound: This is a 62-year-old morbidly obese male who presented with an ulceration on the left posterior calf. The patient was hospitalized at [facility] in [place], [place] recently for 2 days in treatment for bilateral lower extremity cellulitis. He was treated with intravenous Augmentin during his hospital stay, and discharged on a course of Keflex. The patient has a history of lower extremity deep vein thrombosis on at least 3 occasions. He also has had pulmonary emboli in the past. He is currently receiving lifelong systemic anticoagulation with Apixaban 5 mg p.o. twice daily. The patient is known to have chronic swelling in his lower extremities. He is not very active. He sleeps in a recliner with his legs in a dependent position. He sits for long periods each day while at home. 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 His BMI is 45.8. He has been soaking his left foot in soapy water in treatment for a skin tear on the plantar aspect of his left great toe. Venous duplex examination in May 2019 revealed bilateral superficial venous incompetence. A noninvasive lower extremity arterial study at the same time revealed no evidence of significant arterial occlusive disease. 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 Pressure ulcer Right leg swelling Tobacco abuse Tobacco abuse counseling Ulcer of left calf Venous hypertension, chronic, with ulcer and inflammation Venous insufficiency of both lower extremities Home Medications furosemide 40 mg tablet 40 mg PO BID 04/09/19 [History Last Taken Unknown] simvastatin 40 mg tablet 40 mg PO QHS 04/09/19 [History Last Taken Unknown] apixaban 5 mg tablet (Eliquis) 5 mg PO BID 11/13/22 [History Last Taken Unknown] Allergy/AdvReac Type Severity Reaction Status Date / Time No Known Allergies Allergy Verified 11/13/22 10:53 Family History Father Diabetes Heart disease Sister Hypertension Surgical History Hx of ventral hernia repair Social History Smoking Status: Never smoker alcohol intake: current alcohol intake frequency: holidays/special occasions only Vital Signs Vital Signs Vital Signs: 12/05/22 14:36 Pulse Rate 79 Respiratory Rate 16 Blood Pressure 133/73 H Blood Pressure Mean 93 Blood Pressure Source Monitor Blood Pressure Position Sitting Blood Pressure Location Right Arm Oxygen Delivery Method Room Air Weight Weight: 310 lb Body Mass Index (BMI) 45.8 Physical Exam Const alert, oriented x3, no apparent distress and well nourished Constitutional Narrative: The patient is morbidly obese. His BMI is 45.8. General Appearance: cooperative, comfortable, well developed and disheveled Orientation / Consciousness: awake, oriented to person, oriented to place and oriented to time HEENT normocephalic and head/scalp atraumatic Head and Scalp: normal to inspection, normocephalic and atraumatic External Ear: external ears normal Eyes PERRL and EOMs intact bilaterally General Eye: normal appearance of both eyes Resp normal respiratory effort, normal air movement, no retractions and no use of accessory muscles Effort and Inspection: able to speak in complete sentences Extremity no calf tenderness General Extremity: Negative for clubbing or cyanosis Skin Wound Narrative: Slight swelling and edema persist in the patient's lower extremities, though improved from his prior visit. Lipodermatosclerosis and hemosiderin staining are noted in the gaiter areas bilaterally. Mild, diffuse erythema is noted in the gaiter areas bilaterally, suspected to be inflammatory in nature, rather than cellulitic. This erythema appears to be diminishing. An ulceration is noted on the left posterior calf, which is diminishing in size. Dimensions are documented elsewhere. There is a small amount of bioburden and nonviable tissue present. The ulceration is generally pink and healthy in appearance, improved from the patient's prior visit. The cleft on the plantar aspect of the right great toe is completely healed and epithelialized. Dry, scaly, exfoliating epidermis is noted at the rim of both feet, and is diminishing in amount. Neuro oriented x3, CN's II-XII intact bilaterally and moves all extremities Sensorium / Orientation: awake, alert, oriented to person, oriented to place and oriented to time Psych Appearance: grossly normal and appropriate Attitude: calm Activity / Motor Behavior: appropriate eye contact Speech: normal speech Mood & Affect: euthymic mood Thought Process: normal thought process Thought Content: normal thought content Attention / Concentration: attention grossly intact Debridement Note Debridement Note Wound debrided: Left posterior calf ulceration Laterality: Left Type of Debridement: Excisional debridement Anesthesia Used: 5% Lidocaine Gel Depth: Down to and including healthy tissue and in the subcutaneous layer Percentage of wound debrided: 100 Instrument Used: 3mm curette Tissue Removed: Bioburden and nonviable/necrotic tissue Severity: Fat Layer Exposed Amount of bleeding with debridement: Mild Bleeding Controlled with: Compression and gauze Patient tolerated procedure: Patient tolerated procedure well Post-Debridement Measurements and Additional Note: Post-Debridement Measurements/Treatment - Nurse 1 - General Ulcer Assessment Start: 12/05/22 14:31 Freq: Status: Active Protocol: ANJU Activity Type Activity Date Activity User E-sign Co-sign Detail Recorded Client Recorded Date Recorded By Document 12/05/22 14:36 [facility] [id number] 12/05/22 14:42 [facility] 12/05/22 14:36 - Today's Visit Information Type of service Follow-up Visit (Physician/[facility] ) Arrival Mode Ambulatory Transfer Assistance None Patient Identification Verified (Name & Yes ) Patient Requires Transmission-Based No Precautions Height and Weight Body Mass Index (BMI) 45.8 BMI Classification Obese Vital Signs Pulse Rate (60-100) 79 Pulse Location Monitor Respiratory Rate (12-18) 16 Respiratory rate source Observation Oxygen Delivery Method Room Air Blood Pressure (90/60-120/80) 133/73 H Blood Pressure Mean 93 Source Monitor Position Sitting Blood Pressure Location Right Arm History Since Last Visit- (Skip if this is Patient's initial visit) Have you changed medications since your No last visit? Any new allergies or adverse reactions No Had a fall/change in ADL's that may No increase risk of falls Signs or symptoms of abuse and/or No neglect since last visit Have you been in the hospital since your No last visit? Has dressing in place as prescribed No Has compression in place as prescribed No Has offloadiing in place as prescribed N/A Experienced any changes in pain level or No management Left Footwear Regular Shoe Right Footwear Regular Shoe Pain Scale: 0-10 Numeric Is Patient Pain Free? Yes - Nurse 1 - General Ulcer Measurement Start: 12/05/22 14:31 Freq: Status: Active Protocol: Activity Type Activity Date Activity User E-sign Co-sign Detail Recorded Client Recorded Date Recorded By Document 12/05/22 14:36 [facility] [id number] 12/05/22 14:42 [facility] 12/05/22 14:36 Wound Center Nurse 1 #2 left posterior -Combined with other wound No -Current Size (cm) - Length 0.8 -Current Size (cm) - Width 1 -Current Size (cm) - Depth 0.2 -Total Square Cm 0.8 -Epithelialization None Present -Tunneling No -Undermining/Tunneling No -Circular Undermining No -Exudate Amt None Present -Wound Margin Distinct, Outline Attached -Granulation Amt None Present (0 %) -Slough/Fibrin Yes -Necrosis Amt Large (67-100%) -Necrotic Tissue Type Eschar -Texture (Jessica-wound Skin Appearance) Assessed, Fluctuance -Moisture (Jessica-wound Skin Appearance) Assessed,Dry/ Scaly -Color (Jessica-wound Skin Appearance) Assessed -Temperature (Jessica-wound Skin No Abnormality Appearance) (Pt Warm) -Tenderness on Palpation (Jessica-wound No Skin Appearance) -Ulcer Cleansing Rinsed/ Irrigated with Saline -Foul Odor after Cleansing No -Anesthetic Used 5% Lidocaine Gel Lower Limb Edema Present Yes Left Calf (cm) 48.8 Left Ankle (cm) 29.7 - Nurse 3 - General Ulcer D/C NN Start: 12/05/22 14:31 Freq: Status: Active Protocol: Activity Type Activity Date Activity User E-sign Co-sign Detail Recorded Client Recorded Date Recorded By Document 12/05/22 15:28 [facility] [id number] 12/05/22 15:28 [facility] 12/05/22 15:28 Wound Care Center Nurse 3 #2 left posterior -Ulcer Cleansing Rinsed/ Irrigated with Saline -Foul Odor after Cleansing No -Other Dressing PROMOGRAN -Other Covering UNNA BOOT BLE -Multi-Layered Wrap Application Unna Boot - Bilateral ($) Treatment Response Procedure Tolerated Well Pain Scale: 0-10 Numeric Is Patient Pain Free? 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332 - Chronic venous hypertension (idiopathic) with ulcer and inflammation of left lower extremity (4) Pressure ulcer: CODE(S): L89.90 - Pressure ulcer of unspecified site, unspecified stage QUALIFIERS: Pressure injury location: calf Pressure injury stage: stage 2 Laterality: left Qualified Code(s): L89.892 - Pressure ulcer of other site, stage 2 (5) Hx of ventral hernia repair: CODE(S): Z98.890 - Other specified postprocedural states; Z87.19 - Personal history of other diseases of the digestive system (6) Venous insufficiency of both lower extremities: CODE(S): I87.2 - Venous insufficiency (chronic) (peripheral) (7) History of deep vein thrombosis (DVT) of lower extremity: CODE(S): Z86.718 - Personal history of other venous thrombosis and embolism (8) Hyperlipidemia: CODE(S): E78.5 - Hyperlipidemia, unspecified (9) Exertional shortness of breath: CODE(S): R06.02 - Shortness of breath (10) Chronic anticoagulation: CODE(S): Z79.01 - truck terminal manager (current) use of anticoagulants (11) History of pulmonary embolism: CODE(S): Z86.711 - Personal history of pulmonary embolism (12) Tobacco abuse: CODE(S): Z72.0 - Tobacco use (13) Tobacco abuse counseling: CODE(S): Z71.6 - Tobacco abuse counseling (14) Morbid obesity: CODE(S): E66.01 - Morbid (severe) obesity due to excess calories (15) Left leg swelling: CODE(S): M79.89 - Other specified soft tissue disorders (16) Right leg swelling: CODE(S): M79.89 - Other specified soft tissue disorders PLAN: Plan This is a 62-year-old morbidly obese male who presented with evidence of bilateral lower extremity swelling and edema, and an ulceration on his left posterior calf. His presenting symptoms and manifestations appear to be due to a host of factors, including immobility, chronic dependency, morbid obesity, and the presence of chronic venous insufficiency. The patient has a history of bilateral lower extremity deep vein thrombosis on several occasions, as well as pulmonary embolism. He suffers from chronic venous insufficiency, venous hypertension with inflammation, and postphlebitic syndrome with inflammation and ulceration. The ulceration on the left posterior calf may also well be due to pressure phenomenon, as the patient spends a great deal of time in his recliner, and it appears likely that the posterior calf rests against the foot rest, perhaps creating a pressure effect. Offloading measures have been discussed and encouraged. The patient has been encouraged to elevate his lower extremities is much as possible. Leg elevation is to be to heart level, or higher. This is to be achieved during both daytime and nighttime hours. Prolonged idle sitting has been discouraged. Activity has been encouraged. Weight loss has also been recommended. Offloading measures are also to be continued. We are to continue the use of Promogran topically on the left posterior calf ulceration. Unna boots will be applied bilaterally, and will be changed twice weekly. The Unna boots will provide the necessary degree of compression, and the zinc oxide will address issues related to his venous stasis dermatitis and exfoliating epithelium. The amount of exfoliating epithelium at the rim of his feet has decreased significantly. The erythema in the gaiter areas bilaterally is suspected to be inflammatory rather than cellulitic, and is improving. This will be monitored serially. Patient will require graduated compression stockings long-term. He claims to own several new pairs. He has been urged to bring these with him at his next appointment, where we can confirm that they are appropriate for his needs. The patient is to return in 1 week for reassessment. Total time: 26 minutes
[2022-12-11 10:34] VITALS: BP 131/64; PULSE 66; RESP 16; TEMP 36.9; BMI 45.8
--- NOTE | 2022-12-11 11:59 | PCM.WC.HP ---
History of Present Illness Date of Service: 12/11/22 Chief Complaint: Left posterior calf ulceration History of Wound: This is a 62-year-old morbidly obese male who presented with an ulceration on the left posterior calf. The patient was hospitalized at [facility] in [place], [place] recently for 2 days in treatment for bilateral lower extremity cellulitis. He was treated with intravenous Augmentin during his hospital stay, and discharged on a course of Keflex. The patient has a history of lower extremity deep vein thrombosis on at least 3 occasions. He also has had pulmonary emboli in the past. He is currently receiving lifelong systemic anticoagulation with Apixaban 5 mg p.o. twice daily. The patient is known to have chronic swelling in his lower extremities. He is not very active. He sleeps in a recliner with his legs in a dependent position. He sits for long periods each day while at home. 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 His BMI is 45.8. He has been soaking his left foot in soapy water in treatment for a skin tear on the plantar aspect of his left great toe. Venous duplex examination in May 2019 revealed bilateral superficial venous incompetence. A noninvasive lower extremity arterial study at the same time revealed no evidence of significant arterial occlusive disease. 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 Pressure ulcer Right leg swelling Tobacco abuse Tobacco abuse counseling Ulcer of left calf Venous hypertension, chronic, with ulcer and inflammation Venous insufficiency of both lower extremities Home Medications furosemide 40 mg tablet 40 mg PO BID 04/09/19 [History Last Taken Unknown] simvastatin 40 mg tablet 40 mg PO QHS 04/09/19 [History Last Taken Unknown] apixaban 5 mg tablet (Eliquis) 5 mg PO BID 11/13/22 [History Last Taken Unknown] Allergy/AdvReac Type Severity Reaction Status Date / Time No Known Allergies Allergy Verified 11/13/22 10:53 Family History Father Diabetes Heart disease Sister Hypertension Surgical History Hx of ventral hernia repair Social History Smoking Status: Never smoker alcohol intake: current alcohol intake frequency: holidays/special occasions only Vital Signs Vital Signs Vital Signs: 12/11/22 10:34 Temperature 98.5 F Temperature Source Temporal Pulse Rate 66 Respiratory Rate 16 Blood Pressure 131/64 H Blood Pressure Mean 86 Blood Pressure Source Monitor Blood Pressure Position Sitting Blood Pressure Location Left Arm Oxygen Delivery Method Room Air Weight Weight: 310 lb Body Mass Index (BMI) 45.8 Physical Exam Const alert, oriented x3, no apparent distress and well nourished Constitutional Narrative: The patient is morbidly obese. His BMI is 45.8. General Appearance: cooperative, comfortable, well developed and disheveled Orientation / Consciousness: awake, oriented to person, oriented to place and oriented to time HEENT normocephalic and head/scalp atraumatic Head and Scalp: normal to inspection, normocephalic and atraumatic External Ear: external ears normal Eyes PERRL and EOMs intact bilaterally General Eye: normal appearance of both eyes Resp normal respiratory effort, normal air movement, no retractions and no use of accessory muscles Effort and Inspection: able to speak in complete sentences Extremity no calf tenderness General Extremity: Negative for clubbing or cyanosis Skin Wound Narrative: Slight swelling and edema persist in the patient's lower extremities, though improved from his prior visit. Lipodermatosclerosis and hemosiderin staining are noted in the gaiter areas bilaterally. Mild, diffuse erythema is noted in the gaiter areas bilaterally, suspected to be inflammatory in nature, rather than cellulitic. This erythema appears to be diminishing. The ulceration on the left posterior calf is now completely healed and epithelialized. The cleft on the plantar aspect of the right great toe is completely healed and epithelialized. Dry, scaly, exfoliating epidermis at the rim of both feet is now at a minimum. Neuro oriented x3, CN's II-XII intact bilaterally and moves all extremities Sensorium / Orientation: awake, alert, oriented to person, oriented to place and oriented to time Psych Appearance: grossly normal and appropriate Attitude: calm Activity / Motor Behavior: appropriate eye contact Speech: normal speech Mood & Affect: euthymic mood Thought Process: normal thought process Thought Content: normal thought content Attention / Concentration: attention grossly intact Debridement Note Debridement Note No debridement was completed: No debridement was completed today (There are no open wounds or ulcerations.) Post-Debridement Measurements and Additional Note: Post-Debridement Measurements/Treatment - Nurse 1 - General Ulcer Assessment Start: 12/05/22 14:31 Freq: Status: Active Protocol: ABIGAIL.LOWSHEA Activity Type Activity Date Activity User E-sign Co-sign Detail Recorded Client Recorded Date Recorded By Document 12/05/22 14:36 [facility] [id number] 12/05/22 14:42 BM Document 12/11/22 10:34 [id number] 12/11/22 10:43 12/05/22 12/11/22 14:36 10:34 - Today's Visit Information Type of service Follow-up Visit Follow-up Visit (Physician/WAGE AND HOUR INVESTIGATOR (Physician/WAGE AND HOUR INVESTIGATOR ) ) Arrival Mode Ambulatory Ambulatory Transfer Assistance None None Accompanied by self Patient Identification Verified (Name & Yes Yes ) Patient Requires Transmission-Based No No Precautions Safety Precautions NA Height and Weight Body Mass Index (BMI) 45.8 45.8 BMI Classification Obese Obese Vital Signs Temperature (97.8 F-99.1 F) 98.5 F Temperature Source Temporal Pulse Rate (60-100) 79 66 Pulse Location Monitor Monitor Respiratory Rate (12-18) 16 16 Respiratory rate source Observation Observation Oxygen Delivery Method Room Air Room Air Blood Pressure (90/60-120/80) 133/73 H 131/64 H Blood Pressure Mean 93 86 Source Monitor Monitor Position Sitting Sitting Blood Pressure Location Right Arm Left Arm History Since Last Visit- (Skip if this is Patient's initial visit) Have you changed medications since your No No last visit? Any new allergies or adverse reactions No No Had a fall/change in ADL's that may No No increase risk of falls Signs or symptoms of abuse and/or No No neglect since last visit Have you been in the hospital since your No No last visit? Has dressing in place as prescribed No No Has compression in place as prescribed No No Has offloadiing in place as prescribed N/A No Experienced any changes in pain level or No No management Left Footwear Regular Shoe Regular Shoe Right Footwear Regular Shoe Regular Shoe Pain Scale: 0-10 Numeric Is Patient Pain Free? Yes Yes WC - Nurse 1 - General Ulcer Measurement Start: 12/05/22 14:31 Freq: Status: Active Protocol: Activity Type Activity Date Activity User E-sign Co-sign Detail Recorded Client Recorded Date Recorded By Document 12/05/22 14:36 BM [id number] 12/05/22 14:42 BMF Document 12/11/22 10:34 MW [id number] 12/11/22 10:43 MW 12/05/22 12/11/22 14:36 10:34 Wound Center Nurse 1 #2 left posterior -Combined with other wound No No -Current Size (cm) - Length 0.8 0.1 -Current Size (cm) - Width 1 0.1 -Current Size (cm) - Depth 0.2 0.1 -Total Square Cm 0.8 0.01 -Date of Last Picture (Recall this 12/11/22 field) -Photo Taken Yes -Epithelialization None Present Large 67-100% -Tunneling No No -Undermining/Tunneling No No -Circular Undermining No No -Exudate Amt None Present None Present -Wound Margin Distinct, Outline Attached -Granulation Amt None Present (0 None Present (0 %) %) -Slough/Fibrin Yes No -Necrosis Amt Large (67-100%) None Present (0 %) -Necrotic Tissue Type Eschar -Structure Exposed N/A -Texture (Jessica-wound Skin Appearance) Assessed, Assessed, Fluctuance Localized Edema -Moisture (Jessica-wound Skin Appearance) Assessed,Dry/ Assessed,Dry/ Scaly Scaly -Color (Jessica-wound Skin Appearance) Assessed Assessed, Hemosiderin Staining -Temperature (Jessica-wound Skin No Abnormality No Abnormality Appearance) (Pt Warm) (Pt Warm) -Tenderness on Palpation (Jessica-wound No No Skin Appearance) -Ulcer Cleansing Rinsed/ Rinsed/ Irrigated with Irrigated with Saline Saline -Foul Odor after Cleansing No No -Anesthetic Used 5% Lidocaine Gel Lower Limb Edema Present Yes Yes Right Calf (cm) 43.0 Right Ankle (cm) 26.5 Left Calf (cm) 48.8 47.5 Left Ankle (cm) 29.7 29.5 WC - Nurse 2 - General Ulcer CM Notes Start: 12/05/22 14:31 Freq: Status: Active Protocol: Activity Type Activity Date Activity User E-sign Co-sign Detail Recorded Client Recorded Date Recorded By Document 12/05/22 16:19 PL [id number] 12/05/22 16:20 PL Document 12/11/22 11:50 PL [id number] 12/11/22 11:52 PL 12/05/22 12/11/22 16:19 11:50 Wound Center Nurse 2 #2 left posterior -Time 15:10 -Correct Patient Yes -Correct Side, Site, Position Yes -Correct Procedure Yes -Procedure Performed Yes No -Type of Procedure Debridement -Clinical Debridement Subcutaneous -Tissue Removed Subcutaneous -Post Debridement (cm) - Length 0.8 -Post Debridement (cm) - Width 1.0 -Post Debridement (cm) - Depth 0.2 -Total Square (Post) (cm) 0.80 -Area of Debridement (cm) - Length 0.8 -Area of Debridement (cm) - Width 1.0 -Total Square (Area) (cm) 0.80 -Tunneling No -Undermining/Tunneling No -Circular Undermining No -Wound/Ulcer Outcome Not Healed Healed- Epithelialized -Ulcer Cleansing Rinsed/ Irrigated with Saline -Foul Odor after Cleansing No -Bioengineered Tissue No -Bleeding Controlled with Pressure -Treatment Response Procedure Tolerated Well -Debridement - Subq, 1st 20sq cm Yes Pain Scale: 0-10 Numeric Is Patient Pain Free? Yes Yes - Nurse 3 - General Ulcer D/C NN Start: 12/05/22 14:31 Freq: Status: Active Protocol: Activity Type Activity Date Activity User E-sign Co-sign Detail Recorded Client Recorded Date Recorded By Document 12/05/22 15:28 [facility] [id number] 12/05/22 15:28 [facility] Document 12/11/22 11:17 MW [id number] 12/11/22 11:19 MW 12/05/22 12/11/22 15:28 11:17 Wound Care Center Nurse 3 #2 left posterior -Ulcer Cleansing Rinsed/ Irrigated with Saline -Foul Odor after Cleansing No -Other Dressing PROMOGRAN -Other Covering UNNA BOOT Right -Lotion applied to leg before No compression wrap -Stockings Yes Left -Lotion applied to leg before No compression wrap -Stockings Yes BLE -Multi-Layered Wrap Application Unna Boot - Bilateral ($) Treatment Response Procedure Procedure Tolerated Well Tolerated Well Pain Scale: 0-10 Numeric Is Patient Pain Free? 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332 - Chronic venous hypertension (idiopathic) with ulcer and inflammation of left lower extremity (4) Pressure ulcer: CODE(S): L89.90 - Pressure ulcer of unspecified site, unspecified stage QUALIFIERS: Pressure injury location: calf Pressure injury stage: stage 2 Laterality: left Qualified Code(s): L89.892 - Pressure ulcer of other site, stage 2 (5) Hx of ventral hernia repair: CODE(S): Z98.890 - Other specified postprocedural states; Z87.19 - Personal history of other diseases of the digestive system (6) Venous insufficiency of both lower extremities: CODE(S): I87.2 - Venous insufficiency (chronic) (peripheral) (7) History of deep vein thrombosis (DVT) of lower extremity: CODE(S): Z86.718 - Personal history of other venous thrombosis and embolism (8) Hyperlipidemia: CODE(S): E78.5 - Hyperlipidemia, unspecified (9) Exertional shortness of breath: CODE(S): R06.02 - Shortness of breath (10) Chronic anticoagulation: CODE(S): Z79.01 - terminal block assembler (current) use of anticoagulants (11) History of pulmonary embolism: CODE(S): Z86.711 - Personal history of pulmonary embolism (12) Tobacco abuse: CODE(S): Z72.0 - Tobacco use (13) Tobacco abuse counseling: CODE(S): Z71.6 - Tobacco abuse counseling (14) Morbid obesity: CODE(S): E66.01 - Morbid (severe) obesity due to excess calories (15) Left leg swelling: CODE(S): M79.89 - Other specified soft tissue disorders (16) Right leg swelling: CODE(S): M79.89 - Other specified soft tissue disorders PLAN: Plan This is a 62-year-old morbidly obese male who presented with evidence of bilateral lower extremity swelling and edema, and an ulceration on his left posterior calf. His presenting symptoms and manifestations appear to be due to a host of factors, including immobility, chronic dependency, morbid obesity, and the presence of chronic venous insufficiency. The patient has a history of bilateral lower extremity deep vein thrombosis on several occasions, as well as pulmonary embolism. He suffers from chronic venous insufficiency, venous hypertension with inflammation, and postphlebitic syndrome with inflammation and ulceration. The ulceration on the left posterior calf may also well be due to pressure phenomenon, as the patient spends a great deal of time in his recliner, and it appears likely that the posterior calf rests against the foot rest, perhaps creating a pressure effect. At this juncture, the left posterior calf ulceration is completely healed and epithelialized. The patient has been encouraged to elevate his lower extremities as much as possible. Leg elevation is to be to heart level, or higher. This is to be achieved during both daytime and nighttime hours. Prolonged idle sitting has been discouraged. Activity has been encouraged. Weight loss has also been recommended. The patient has brought with him today, as requested, the graduated compression stockings which he has in his possession. They have been examined, are in good shape, and are seen to be 20 to 30 mmHg compression, knee-high length. The patient has been encouraged to wear the stockings on a daily basis. All other conservative treatment measures are to be continued, and have been discussed. The patient is to be discharged, and will follow-up henceforth on an as-needed basis. Total time: 25 minutes
== END 2022-12-12 07:37 | disposition home or self-care (01) ==
LOC: WC 10:30
PROVIDERS: PCP Nurse Practitioner Family; Referring Provider Nurse Practitioner Family; Visit Provider Surgery
DX: I87.332 Chronic venous hypertension (idiopathic) with ulcer and inflammation of left lower extremity (principal); L89.892 Pressure ulcer of other site, stage 2; L97.222 Non-pressure chronic ulcer of left calf with fat layer exposed; I87.312 Chronic venous hypertension (idiopathic) with ulcer of left lower extremity; E66.01 Morbid (severe) obesity due to excess calories; Z68.42 Body mass index [BMI] 45.0-49.9, adult; Z79.01 Long term (current) use of anticoagulants; R06.02 Shortness of breath; Z71.6 Tobacco abuse counseling; Z72.0 Tobacco use; I87.2 Venous insufficiency (chronic) (peripheral); E78.5 Hyperlipidemia, unspecified; Z98.890 Other specified postprocedural states; Z86.718 Personal history of other venous thrombosis and embolism; Z87.19 Personal history of other diseases of the digestive system; Z86.711 Personal history of pulmonary embolism; M79.89 Other specified soft tissue disorders
CPT/HCPCS: 11042; 29580; 99213; G0463

== ENCOUNTER 2023-10-01 08:00 | Outpatient (RCR) | payer OTHER, SELFPAY ==
[2023-09-10 08:19] VITALS: BP 158/101; PULSE 83; RESP 18; TEMP 36.6
--- NOTE | 2023-09-10 09:40 | PCM.WC.HP ---
History of Present Illness Date of Service: 09/10/23 Chief Complaint: Left posterior calf ulceration History of Wound: This is a 62-year-old morbidly obese male who presented with an ulceration on the left posterior calf. The patient was hospitalized at [facility] in [place], [place] recently for 2 days in treatment for bilateral lower extremity cellulitis. He was treated with intravenous Augmentin during his hospital stay, and discharged on a course of Keflex. The patient has a history of lower extremity deep vein thrombosis on at least 3 occasions. He also has had pulmonary emboli in the past. He is currently receiving lifelong systemic anticoagulation with Apixaban 5 mg p.o. twice daily. The patient is known to have chronic swelling in his lower extremities. He is not very active. He sleeps in a recliner with his legs in a dependent position. He sits for long periods each day while at home. 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 His BMI is 45.8. He has been soaking his left foot in soapy water in treatment for a skin tear on the plantar aspect of his left great toe. Venous duplex examination in May 2019 revealed bilateral superficial venous incompetence. A noninvasive lower extremity arterial study at the same time revealed no evidence of significant arterial occlusive disease. Progress of Wound: New onset swelling and redness to bilateral legs. Patient denies any fever chills nausea vomiting chest pain calf pain shortness of breath. Patient is on DVT prophylaxis with daily Eliquis. Patient has been noncompliant at current with elevation and compression and ambulation for edema management. Patient does note some partial-thickness ulcerations to bilateral legs. No other complaints. 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 Pressure ulcer Right leg swelling Tobacco abuse Tobacco abuse counseling Ulcer of left calf Venous hypertension, chronic, with ulcer and inflammation Venous insufficiency of both lower extremities Home Medications furosemide 40 mg tablet 40 mg PO BID 04/09/19 [History Last Taken Unknown] simvastatin 40 mg tablet 40 mg PO QHS 11/07/19 [History Last Taken Unknown] apixaban 5 mg tablet (Eliquis) 5 mg PO BID 11/13/22 [History Last Taken Unknown] amoxicillin 875 mg-potassium clavulanate 125 mg tablet 1 tab PO BID #20 tabs 09/10/23 [Rx Last Taken Unknown] Allergy/AdvReac Type Severity Reaction Status Date / Time No Known Allergies Allergy Verified 11/13/22 10:53 Family History Father Diabetes Heart disease Sister Hypertension Surgical History Hx of ventral hernia repair Social History Smoking Status: Never smoker alcohol intake: current alcohol intake frequency: holidays/special occasions only ROS Constitutional Constitutional: Denies change in weight, chills or frequent falls Eyes Eyes: Denies acute decrease in peripheral vision, change in vision or double vision ENT HEENT: Denies abnormal hearing, bleeding gums or dysphagia Cardiovascular Cardiovascular: Denies abdominal bloating, abdominal edema or bluish discoloration of hand/feet Respiratory/Chest Respiratory/Chest: Denies change in mental status, change in phlegm color or difficulty clearing secretions Vital Signs Vital Signs Vital Signs: 09/10/23 08:19 Temperature 98 F Temperature Source Temporal Pulse Rate 83 Respiratory Rate 18 Blood Pressure 158/101 H Blood Pressure Mean 120 Blood Pressure Source Monitor Blood Pressure Position Sitting Blood Pressure Location Left Arm Oxygen Delivery Method Room Air Physical Exam Narrative Vascular: Dorsalis pedis and posterior tibial pulses palpable 2 out of 4 to bilateral lower extremity. Capillary fill time brisk. +3 pitting edema noted to bilateral perimalleolar region. Atrophic skin changes noted. Neurologic: Light touch protective sensation intact bilateral feet. No evidence of clonus or Babinski sign. Dermatologic: Partial-thickness ulceration right lateral leg pre and postdebridement measurements documented nursing notes. Partial-thickness ulcerations noted to left lateral leg and posterior leg. Sizes documented nursing notes. Some periwound erythema noted today with diffuse edema swelling to bilateral legs. Musculoskeletal: No pain with calf squeeze bilateral lower extremity. Muscular strength full. No wound forming deformities noted. Const alert and oriented x3 Debridement Note Debridement Note Post-Debridement Measurements and Additional Note: Post-Debridement Measurements/Treatment - Nurse 1 - General Ulcer Assessment Start: 09/10/23 08:19 Freq: Status: Active Protocol: ANJU Activity Type Activity Date Activity User E-sign Co-sign Detail Recorded Client Recorded Date Recorded By Document 09/10/23 08:19 DC [email or web address] 09/10/23 08:32 DC 09/10/23 08:19 WC - Today's Visit Information Type of service Initial Visit Arrival Mode Ambulatory Accompanied by self Patient Identification Verified (Name & Yes ) Safety Precautions Fall Prevention Vital Signs Temperature (97.8 F-99.1 F) 98 F Temperature Source Temporal Pulse Rate (60-100) 83 Pulse Location Monitor Respiratory Rate (12-18) 18 Respiratory rate source Observation Oxygen Delivery Method Room Air Blood Pressure (90/60-120/80) 158/101 H Blood Pressure Mean 120 Source Monitor Position Sitting Blood Pressure Location Left Arm History Since Last Visit- (Skip if this is Patient's initial visit) Left Footwear Regular Shoe Right Footwear Regular Shoe Pain Scale: 0-10 Numeric Is Patient Pain Free? No - Nurse 1 - General Ulcer Measurement Start: 09/10/23 08:19 Freq: Status: Active Protocol: Activity Type Activity Date Activity User E-sign Co-sign Detail Recorded Client Recorded Date Recorded By Document 09/10/23 08:19 DC [email or web address] 09/10/23 08:32 DC 09/10/23 08:19 Wound Center Nurse 1 #6 Right Ant Calf -Current Size (cm) - Length 4.4 -Current Size (cm) - Width 3.4 -Current Size (cm) - Depth 0.1 -Total Square Cm 14.96 -Date of Last Picture (Recall this 09/10/23 field) -Photo Taken No -Epithelialization None Present -Tunneling No -Undermining/Tunneling No -Exudate Amt Large -Exudate Type Serosanguineous -Wound Margin Flat & Intact -Granulation Amt Medium (34-66%) -Granulation Quality Pale,Roosevelt -Necrosis Amt Medium (34-66%) -Necrotic Tissue Type Adherent Slough -Texture (Jessica-wound Skin Appearance) Assessed -Moisture (Jessica-wound Skin Appearance) Assessed -Color (Jessica-wound Skin Appearance) Assessed -Temperature (Jessica-wound Skin No Abnormality Appearance) (Pt Warm) -Tenderness on Palpation (Jessica-wound No Skin Appearance) -Ulcer Cleansing Soap and Water -Foul Odor after Cleansing No -Anesthetic Used 5% Lidocaine Gel #5 Left Ant Cluster -Current Size (cm) - Length 13.4 -Current Size (cm) - Width 0.3 -Current Size (cm) - Depth 0.1 -Total Square Cm 4.02 -Date of Last Picture (Recall this 09/10/23 field) -Photo Taken Yes -Epithelialization Small 1-33% -Tunneling No -Undermining/Tunneling No -Circular Undermining No -Exudate Amt Large -Exudate Type Serosanguineous -Wound Margin Flat & Intact -Granulation Amt Medium (34-66%) -Granulation Quality Pale,Roosevelt -Necrosis Amt Medium (34-66%) -Necrotic Tissue Type Adherent Slough -Texture (Jessica-wound Skin Appearance) Assessed, Localized Edema -Moisture (Jessica-wound Skin Appearance) Assessed, Maceration -Color (Jessica-wound Skin Appearance) Assessed, Hemosiderin Staining -Temperature (Jessica-wound Skin No Abnormality Appearance) (Pt Warm) -Tenderness on Palpation (Jessica-wound No Skin Appearance) -Ulcer Cleansing Soap and Water -Foul Odor after Cleansing No -Anesthetic Used 5% Lidocaine Gel #4 Left Post Calf -Current Size (cm) - Length 1.8 -Current Size (cm) - Width 3.0 -Current Size (cm) - Depth 0.1 -Total Square Cm 5.40 -Date of Last Picture (Recall this 09/10/23 field) -Photo Taken Yes -Tunneling No -Undermining/Tunneling No -Circular Undermining No -Exudate Amt Large -Exudate Type Serosanguineous -Wound Margin Flat & Intact -Granulation Amt Small (1-33%) -Granulation Quality Pale,Roosevelt -Necrosis Amt Large (67-100%) -Necrotic Tissue Type Adherent Slough -Texture (Jessica-wound Skin Appearance) Assessed, Localized Edema -Moisture (Jessica-wound Skin Appearance) Assessed, Maceration -Color (Jessica-wound Skin Appearance) Assessed -Temperature (Jessica-wound Skin No Abnormality Appearance) (Pt Warm) -Tenderness on Palpation (Jessica-wound No Skin Appearance) -Ulcer Cleansing Soap and Water -Foul Odor after Cleansing No -Anesthetic Used 5% Lidocaine Gel Right Calf (cm) 48.5 Right Ankle (cm) 37.5 Left Calf (cm) 57.3 Left Ankle (cm) 32.0 WC - Nurse 2 - General Ulcer CM Notes Start: 09/10/23 08:19 Freq: Status: Active Protocol: Activity Type Activity Date Activity User E-sign Co-sign Detail Recorded Client Recorded Date Recorded By Document 09/10/23 09:26 [email or web address] 09/10/23 09:29 09/10/23 09:26 Wound Center Nurse 2 #6 Right Ant Calf -Correct Patient No -Correct Side, Site, Position No -Correct Procedure No -Procedure Performed No -Wound/Ulcer Outcome Not Healed #5 Left Ant Cluster -Correct Patient No -Correct Side, Site, Position No -Correct Procedure No -Procedure Performed No -Wound/Ulcer Outcome Not Healed #4 Left Post Calf -Time 09:28 -Correct Patient Yes -Correct Side, Site, Position Yes -Correct Procedure Yes -Procedure Performed Yes -Type of Procedure Debridement -Clinical Debridement Epidermis / Dermis -Tissue Removed Epidermis, Dermis -Tunneling No -Undermining/Tunneling No -Circular Undermining No -Wound/Ulcer Outcome Not Healed -Ulcer Cleansing Rinsed/ Irrigated with Saline -Foul Odor after Cleansing No -Bioengineered Tissue No -Bleeding Controlled with Pressure -Treatment Response Procedure Tolerated Well -Offloading No -Debridement - Open, 1st 20sq cm Yes Pain Scale: 0-10 Numeric Is Patient Pain Free? Yes - Nurse 3 - General Ulcer D/C NN Start: 09/10/23 08:19 Freq: Status: Active Protocol: Activity Type Activity Date Activity User E-sign Co-sign Detail Recorded Client Recorded Date Recorded By Document 09/10/23 09:01 Desktop 09/10/23 09:03 KW 09/10/23 09:01 Wound Care Center Nurse 3 #6 Right Ant Calf -Primary Dressing Applied Silvercel -Other Dressing betadine -Primary Dressing Covered/Secured with Dry Gauze & Roll Gauze, Secured with Tape -Silvercel 1 #5 Left Ant Cluster -Primary Dressing Applied Silvercel -Primary Dressing Covered/Secured with Dry Gauze & Roll Gauze, Secured with Tape -Silvercel 1 #4 Left Post Calf -Primary Dressing Covered/Secured with Dry Gauze Right -Tubular Bandage Single Layer -Size of Tubigrip Used Size F -Size F ($) 1 Left -Tubular Bandage Single Layer -Size of Tubigrip Used Size F -Size F ($) 1 Pain Scale: 0-10 Numeric Is Patient Pain Free? Yes WC - Visit Discharge Discharge Condition Stable Ambulatory Status Ambulatory Transportation Private Auto Medication Reconcilliation completed & No provided to patient/care provider Clinical Summary of Care Provided Yes Assessment/Plan Assessment/Plan (1) Venous insufficiency (chronic) (peripheral): CODE(S): I87.2 - Venous insufficiency (chronic) (peripheral) PLAN: Exam performed. Patient has poorly controlled lymphedema with bilateral stasis dermatitis and partial-thickness ulcerations. Repeat arterial studies and venous studies ordered. Rx for Augmentin 875 mg for 10 total days twice daily. Discussed compression, elevation, exercise for edema management. Will plan for daily Betadine paint dry sterile dressing and Tubigrip. Pending vascular studies will plan for bilateral compression wraps. Partial thickness wound debridement performed to right lower extremity down to including level of partial thickness skin loss. This was performed with pickups and #15 blade without incident. Patient tolerated procedure well. Pre and postdebridement measurements documented nursing notes. Hemostasis obtained with light compression. Topical anesthesia used. Patient tolerated procedure well. Patient will follow-up in 1 week. Will plan for lymphedema pumps upon completion of treatment (2) Non-pressure chronic ulcer of right calf with fat layer exposed: CODE(S): L97.212 - Non-pressure chronic ulcer of right calf with fat layer exposed (3) Non-pressure chronic ulcer of left calf with fat layer exposed: CODE(S): L97.222 - Non-pressure chronic ulcer of left calf with fat layer exposed (4) Stasis dermatitis of both legs: CODE(S): I87.2 - Venous insufficiency (chronic) (peripheral)
--- NOTE | 2023-09-13 09:33 | WC ---
4.8.24 LT ANT CLUSTER
--- NOTE | 2023-09-13 09:36 | WC ---
4.8.24 RT ANT CALF
--- NOTE | 2023-09-13 09:37 | WC ---
4.8.24 LT POST CALF
[2023-09-17 08:09] VITALS: BP 124/73; PULSE 69; RESP 18; TEMP 36.1
--- NOTE | 2023-09-17 08:51 | PCM.WC.PN ---
History of Present Illness Date of Service: 09/17/23 Chief Complaint: Left posterior calf ulceration History of Wound: This is a 62-year-old morbidly obese male who presented with an ulceration on the left posterior calf. The patient was hospitalized at [facility] in [place], [place] recently for 2 days in treatment for bilateral lower extremity cellulitis. He was treated with intravenous Augmentin during his hospital stay, and discharged on a course of Keflex. The patient has a history of lower extremity deep vein thrombosis on at least 3 occasions. He also has had pulmonary emboli in the past. He is currently receiving lifelong systemic anticoagulation with Apixaban 5 mg p.o. twice daily. The patient is known to have chronic swelling in his lower extremities. He is not very active. He sleeps in a recliner with his legs in a dependent position. He sits for long periods each day while at home. 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 His BMI is 45.8. He has been soaking his left foot in soapy water in treatment for a skin tear on the plantar aspect of his left great toe. Venous duplex examination in May 2019 revealed bilateral superficial venous incompetence. A noninvasive lower extremity arterial study at the same time revealed no evidence of significant arterial occlusive disease. Progress of Wound: Follow-up bilateral leg ulcerations. No changes since previous evaluation. Denies constitutional symptoms. Awaiting vascular studies. Compliant with dressing changes. Objective Data Objective Data Vital Signs: Vital Signs Temp Pulse Resp BP O2 Del Method 97 F L 69 18 124/73 H Room Air 09/17/23 08:09 09/17/23 08:09 09/17/23 08:09 09/17/23 08:09 09/10/23 08:19 Oxygen Delivery Method Room Air Physical Exam Narrative Vascular: Dorsalis pedis and posterior tibial pulses palpable 2 out of 4 to bilateral lower extremity. Capillary fill time brisk. +3 pitting edema noted to bilateral perimalleolar region. Atrophic skin changes noted. Neurologic: Light touch protective sensation intact bilateral feet. No evidence of clonus or Babinski sign. Dermatologic: Full-thickness wound to right anterior leg and posterior left leg. Wounds demonstrate fibrotic base predebridement. Postdebridement wound yielded 100% granular base clean skin edges with no deep probing or undermining. Pre and postdebridement measurements documented nursing notes. Musculoskeletal: No pain with calf squeeze bilateral lower extremity. Muscular strength full. No wound forming deformities noted. 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 ) Arrival Mode Ambulatory Ambulatory Transfer Assistance None Accompanied by self Patient Identification Verified (Name & Yes Yes ) Patient Requires Transmission-Based No Precautions Safety Precautions Fall Prevention Vital Signs Temperature (97.8 F-99.1 F) 98 F 97 F L Temperature Source Temporal Temporal Pulse Rate (60-100) 83 69 Pulse Location Monitor Monitor Respiratory Rate (12-18) 18 18 Respiratory rate source Observation Observation Oxygen Delivery Method Room Air Blood Pressure (90/60-120/80) 158/101 H 124/73 H Blood Pressure Mean (mm Hg) 120 90 Source Monitor Monitor Position Sitting Semi-Fowlers Blood Pressure Location Left Arm Left Arm History Since Last Visit- (Skip if this is Patient's initial visit) Have you changed medications since your No last visit? Any new allergies or adverse reactions No Had a fall/change in ADL's that may No increase risk of falls Signs or symptoms of abuse and/or No neglect since last visit Have you been in the hospital since your No last visit? Has dressing in place as prescribed Yes Has compression in place as prescribed Yes Has offloadiing in place as prescribed No Experienced any changes in pain level or No management Left Footwear Regular Shoe Regular Shoe Right Footwear Regular Shoe Regular Shoe Pain Scale: 0-10 Numeric Is Patient Pain Free? No Yes ABIGAIL - Nurse 1 - General Ulcer Measurement Start: 09/10/23 08:19 Freq: Status: Active Protocol: Activity Type Activity Date Activity User E-sign Co-sign Detail Recorded Client Recorded Date Recorded By Document 09/10/23 08:19 MT Desktop 09/10/23 08:32 MT Document 09/17/23 08:09 DL Desktop 09/17/23 08:17 DL 09/10/23 09/17/23 08:19 08:09 Wound Center Nurse 1 #6 Right Ant Calf -Combined with other wound No -Current Size (cm) - Length 4.4 4 -Current Size (cm) - Width 3.4 4.4 -Current Size (cm) - Depth 0.1 0.1 -Total Square Cm 14.96 17.6 -Date of Last Picture (Recall this 09/10/23 field) -Photo Taken No -Epithelialization None Present -Tunneling No No -Undermining/Tunneling No No -Circular Undermining No -Exudate Amt Large Large -Exudate Type Serosanguineous Serosanguineous -Wound Margin Flat & Intact Distinct, Outline Attached -Granulation Amt Medium (34-66%) Medium (34-66%) -Granulation Quality Pale,Villa Hugo I Villa Hugo I -Slough/Fibrin Yes -Necrosis Amt Medium (34-66%) Medium (34-66%) -Necrotic Tissue Type Adherent Slough Adherent Slough -Structure Exposed N/A -Texture (Jessica-wound Skin Appearance) Assessed Assessed -Moisture (Jessica-wound Skin Appearance) Assessed Assessed, Weeping -Color (Jessica-wound Skin Appearance) Assessed Assessed,Rubor -Temperature (Jessica-wound Skin No Abnormality No Abnormality Appearance) (Pt Warm) (Pt Warm) -Tenderness on Palpation (Jessica-wound No No Skin Appearance) -Ulcer Cleansing Soap and Water Wound Cleanser -Foul Odor after Cleansing No No -Anesthetic Used 5% Lidocaine 5% Lidocaine Gel Gel #5 Left Ant Cluster -Combined with other wound No -Current Size (cm) - Length 13.4 0.1 -Current Size (cm) - Width 0.3 0.1 -Current Size (cm) - Depth 0.1 0.1 -Total Square Cm 4.02 0.01 -Date of Last Picture (Recall this 09/10/23 field) -Photo Taken Yes -Epithelialization Small 1-33% -Tunneling No No -Undermining/Tunneling No No -Circular Undermining No No -Exudate Amt Large Medium -Exudate Type Serosanguineous Serosanguineous -Wound Margin Flat & Intact Distinct, Outline Attached -Granulation Amt Medium (34-66%) Medium (34-66%) -Granulation Quality Pale,V[place] Hugo I Villa Hugo I -Slough/Fibrin Yes -Necrosis Amt Medium (34-66%) Medium (34-66%) -Necrotic Tissue Type Adherent Slough Adherent Slough -Structure Exposed N/A -Texture (Jessica-wound Skin Appearance) Assessed, Assessed Localized Edema -Moisture (Jessica-wound Skin Appearance) Assessed, Assessed Maceration -Color (Jessica-wound Skin Appearance) Assessed, Assessed,Rubor Hemosiderin Staining -Temperature (Jessica-wound Skin No Abnormality No Abnormality Appearance) (Pt Warm) (Pt Warm) -Tenderness on Palpation (Jessica-wound No No Skin Appearance) -Ulcer Cleansing Soap and Water Wound Cleanser -Foul Odor after Cleansing No No -Anesthetic Used 5% Lidocaine 5% Lidocaine Gel Gel #4 Left Post Calf -Combined with other wound No -Current Size (cm) - Length 1.8 1.8 -Current Size (cm) - Width 3.0 2.3 -Current Size (cm) - Depth 0.1 0.1 -Total Square Cm 5.40 4.14 -Date of Last Picture (Recall this 09/10/23 field) -Photo Taken Yes -Tunneling No No -Undermining/Tunneling No No -Circular Undermining No No -Exudate Amt Large Medium -Exudate Type Serosanguineous Serosanguineous -Wound Margin Flat & Intact Distinct, Outline Attached -Granulation Amt Small (1-33%) Medium (34-66%) -Granulation Quality Pale,[place] I [place] Hugo I -Slough/Fibrin Yes -Necrosis Amt Large (67-100%) Medium (34-66%) -Necrotic Tissue Type Adherent Slough Adherent Slough -Structure Exposed N/A -Texture (Jessica-wound Skin Appearance) Assessed, Assessed Localized Edema -Moisture (Jessica-wound Skin Appearance) Assessed, Assessed Maceration -Color (Jessica-wound Skin Appearance) Assessed Assessed,Rubor -Temperature (Jessica-wound Skin No Abnormality No Abnormality Appearance) (Pt Warm) (Pt Warm) -Tenderness on Palpation (Jessica-wound No No Skin Appearance) -Ulcer Cleansing Soap and Water Wound Cleanser -Foul Odor after Cleansing No No -Anesthetic Used 5% Lidocaine 5% Lidocaine Gel Gel Lower Limb Edema Present Yes Right Calf (cm) 48.5 47.5 Right Ankle (cm) 37.5 28 Left Calf (cm) 57.3 52 Left Ankle (cm) 32.0 29.5 - Nurse 2 - General Ulcer CM Notes Start: 09/10/23 08:19 Freq: Status: Active Protocol: Activity Type Activity Date Activity User E-sign Co-sign Detail Recorded Client Recorded Date Recorded By Document 09/10/23 09:26 [id number] 09/10/23 09:29 Document 09/17/23 08:40 Laptop 09/17/23 08:44 09/10/23 09/17/23 09:26 08:40 Wound Center Nurse 2 #6 Right Ant Calf -Time 08:41 -Correct Patient No Yes -Correct Side, Site, Position No Yes -Correct Procedure No Yes -Procedure Performed No Yes -Type of Procedure Debridement -Clinical Debridement Subcutaneous -Tissue Removed Subcutaneous -Post Debridement (cm) - Length 4.0 -Post Debridement (cm) - Width 4.5 -Post Debridement (cm) - Depth 0.1 -Total Square (Post) (cm) 18.00 -Area of Debridement (cm) - Length 4.0 -Area of Debridement (cm) - Width 4.5 -Total Square (Area) (cm) 18.00 -Tunneling No -Undermining/Tunneling No -Circular Undermining No -Wound/Ulcer Outcome Not Healed Not Healed -Ulcer Cleansing Rinsed/ Irrigated with Saline -Foul Odor after Cleansing No -Bioengineered Tissue No -Bleeding Controlled with Pressure -Treatment Response Procedure Tolerated Well -Offloading No -Debridement - Subq, 1st 20sq cm No #5 Left Ant Cluster -Time 08:41 -Correct Patient No Yes -Correct Side, Site, Position No Yes -Correct Procedure No Yes -Procedure Performed No Yes -Type of Procedure Debridement -Clinical Debridement Subcutaneous -Tissue Removed Subcutaneous -Post Debridement (cm) - Length 0.2 -Post Debridement (cm) - Width 0.2 -Post Debridement (cm) - Depth 0.1 -Total Square (Post) (cm) 0.04 -Area of Debridement (cm) - Length 0.2 -Area of Debridement (cm) - Width 0.2 -Total Square (Area) (cm) 0.04 -Tunneling No -Undermining/Tunneling No -Circular Undermining No -Wound/Ulcer Outcome Not Healed Not Healed -Ulcer Cleansing Rinsed/ Irrigated with Saline -Foul Odor after Cleansing No -Bioengineered Tissue No -Bleeding Controlled with Pressure -Treatment Response Procedure Tolerated Well -Offloading No -Debridement - Subq, 1st 20sq cm No #4 Left Post Calf -Time 09:28 08:43 -Correct Patient Yes Yes -Correct Side, Site, Position Yes Yes -Correct Procedure Yes Yes -Procedure Performed Yes Yes -Type of Procedure Debridement Debridement -Clinical Debridement Epidermis / Subcutaneous Dermis -Tissue Removed Epidermis, Subcutaneous Dermis -Post Debridement (cm) - Length 1.8 -Post Debridement (cm) - Width 2.4 -Post Debridement (cm) - Depth 0.1 -Total Square (Post) (cm) 4.32 -Area of Debridement (cm) - Length 0.8 -Area of Debridement (cm) - Width 2.4 -Total Square (Area) (cm) 1.92 -Tunneling No No -Undermining/Tunneling No No -Circular Undermining No No -Wound/Ulcer Outcome Not Healed Not Healed -Ulcer Cleansing Rinsed/ Rinsed/ Irrigated with Irrigated with Saline Saline -Foul Odor after Cleansing No No -Bioengineered Tissue No No -Bleeding Controlled with Pressure Pressure -Treatment Response Procedure Procedure Tolerated Well Tolerated Well -Offloading No No -Debridement - Open, 1st 20sq cm Yes -Debridement - Subq, 1st 20sq cm Yes -Debridement, SubQ, ea addt'l 20sq cm 1 or part thereof Pain Scale: 0-10 Numeric Is Patient Pain Free? Yes Yes - Nurse 3 - General Ulcer D/C NN Start: 09/10/23 08:19 Freq: Status: Active Protocol: Activity Type Activity Date Activity User E-sign Co-sign Detail Recorded Client Recorded Date Recorded By Document 09/10/23 09:01 KW Desktop 09/10/23 09:03 KW 09/10/23 09:01 Wound Care Center Nurse 3 #6 Right Ant Calf -Primary Dressing Applied Silvercel -Other Dressing betadine -Primary Dressing Covered/Secured with Dry Gauze & Roll Gauze, Secured with Tape -Silvercel 1 #5 Left Ant Cluster -Primary Dressing Applied Silvercel -Primary Dressing Covered/Secured with Dry Gauze & Roll Gauze, Secured with Tape -Silvercel 1 #4 Left Post Calf -Primary Dressing Covered/Secured with Dry Gauze Right -Tubular Bandage Single Layer -Size of Tubigrip Used Size F -Size F ($) 1 Left -Tubular Bandage Single Layer -Size of Tubigrip Used Size F -Size F ($) 1 Pain Scale: 0-10 Numeric Is Patient Pain Free? Yes WC - Visit Discharge Discharge Condition Stable Ambulatory Status Ambulatory Transportation Private Auto Medication Reconcilliation completed & No provided to patient/care provider Clinical Summary of Care Provided Yes Assessment/Plan Assessment/Plan (1) Venous insufficiency (chronic) (peripheral): CODE(S): I87.2 - Venous insufficiency (chronic) (peripheral) PLAN: Exam performed. Patient has poorly controlled lymphedema with bilateral stasis dermatitis and partial-thickness ulcerations. Repeat arterial studies and venous studies ordered -awaiting results. Complete Augmentin 875 mg for 10 total days twice daily. Discussed compression, elevation, exercise for edema management. Will plan for daily Betadine paint dry sterile dressing and Tubigrip. After vascular studies on Saturday will change to Betadine, silver alginate, 3M compression wrap. Bilateral leg wounds were debrided excisionally down to including level of subcutaneous tissue of all nonviable tissue using 5 mm dermal curette without incident. Pre and postdebridement measurements documented nursing notes. Topical anesthesia used. Hemostasis with light compression. Patient tolerated procedure well. Patient will follow-up in 1 week. Will plan for lymphedema pumps upon completion of treatment (2) Non-pressure chronic ulcer of right calf with fat layer exposed: CODE(S): L97.212 - Non-pressure chronic ulcer of right calf with fat layer exposed (3) Non-pressure chronic ulcer of left calf with fat layer exposed: CODE(S): L97.222 - Non-pressure chronic ulcer of left calf with fat layer exposed (4) Stasis dermatitis of both legs: CODE(S): I87.2 - Venous insufficiency (chronic) (peripheral)
--- NOTE | 2023-09-20 10:00 | ART_ITS ---
Reason For Study: Bilateral leg ulcers Procedure A bilateral lower extremity continuous wave Doppler with analog waveform analysis,segmental pressures,and ankle brachial indexes without exercise. Left Segmental Pressures Left brachial= 143mmHg. Left posterior tibial artery = 184mmHg. Left dorsalis pedis artery = 140mmHg. Left digit = 83 mmHg. The left dorsalis pedis waveforms are triphasic. The left posterior tibial artery waveforms are biphasic. Right Segmental Pressures Right brachial= 149mmHg. Right posterior tibial artery = 177mmHg. Right dorsalis pedis artery = 163mmHg. Right digit = 102 mmHg. The right dorsalis pedis waveforms are triphasic. The right posterior tibial artery waveforms are triphasic. Indices The right ankle brachial index by the dorsalis pedis is 1.09. The right ankle brachial index by the posterior tibial artery is 1.19. The right digital-brachial index is 0.68. The left ankle brachial index by the dorsalis pedis is 0.94. The left ankle brachial index by the posterior tibial artery is 1.23. The left digital-brachial index is 0.56. VL/Lower Ext Art Exam w/o Exercis Interpretation Summary Triphasic Doppler waveforms are noted at ankle level on the right. Triphasic an d biphasic Doppler waveforms are noted at ankle level on the left. Pulse-volume recordings appear satisfactory at all levels bilaterally. Resting ankle-brachial indices are normal bilaterally. Digi justice-brachial indices are mildly diminished bilaterally. Arterial flow appears normal at ankle level bilaterally. There is evidence of m ild arterial occlusive disease at digital level bilaterally. Ordering Physician: Jerry Garcia Referring Physician: Venessa Emmanuel Performed By: Christie Spencer RVT
--- NOTE | 2023-09-20 10:01 | VDLE_ITS ---
Reason For Study: Bilateral leg ulcers RIGHT LEFT CFV is compressible, spontaneous, phasic, CFV is compressible, spontaneous, phasic, competent and demonstrates normal competent, and demonstrates normal augmentation. augmentation. FV is compressible, spontaneous, phasic, FV is compressible, spontaneous, phasic, competent and demonstrates normal competent and demonstrates normal augmentation. augmentation. POP V is compressible, spontaneous, phasic, POP V is compressible, spontaneous, phasic, competent and demonstrates normal competent and demonstrates normal augmentation. augmentation. T/P Trunk is compressible. T/P Trunk is compressible. PTV is compressible. PTV is compressible. RT PerV is compressible. LT PerV is compressible. SFJ is INCOMPETENT and measures 1.26 x 1.20 SFJ is INCOMPETENT and measures 1.07 x 1.02 cm. cm. GSV proximal thigh measures 0.35 x 0.39 cm. GSV proximal thigh measures 0.88 x 1.01 cm. GSV at knee measures 0.30 x 0.27 cm. GSV at knee measures 0.56 x 0.57 cm. GSV INCOMPETENT throughout for greater than GSV INCOMPETENT throughout for greater than 0.5 seconds. 0.5 seconds. ASV proximal calf is INCOMPETENT for greater ASV mid thigh is INCOMPETENT for greater than than 0.5 seconds and measures 0.40 x 0.43 cm. 0.5 seconds and measures 0.55 x 0.53 cm. INCOMPETENT rope coiling machine operator noted 14 cm above ASV at knee is INCOMPETENT for greater than medial maleolus. 0.5 seconds and measures 0.64 x 0.76 cm. SSV proximal calf is competent and measures INCOMPETENT rope coiling machine operator noted 22 cm above 0.31 x 0.28 cm. medial maleolus. Procedure SSV proximal calf is competent and measures This is a venous duplex using B-mode, color 0.36 x 0.31 cm. flow and spectral Doppler. Exam performed in department. Patient was scanned in reverse Trendelenburg position during reflux assessment. A preliminary report was called and/or faxed to . VL/Venous Duplex US - Jemal Extrem Interpretation Summary Deep veins of the lower extremities are bilaterally patent and compressible seg mentally. There is no evidence of deep vein thrombosis on either side. Valvular competence appears in tact within the proximal deep venous systems bilaterally. The great saphenous veins appear bila terally patent and compressible segmentally. Sapheno-femoral junctions are bilaterally incompetent . Segmental valvular incompetence is noted within the great saphenous veins bilaterally. Small saphe nous veins are patent and competent bilaterally. The accessory saphenous vein in the right proximal c fpc is incompetent. Accessory saphenous veins in the left mid-thigh and at left knee level are inco mpetent. An incompetent rope coiling machine operator vein is noted in the right calf, located 14 centimeters proximal to the right medial malleolus. An incompetent rope coiling machine operator vein is noted in the left calf, loc ated 22 centimeters proximal to the left medial malleolus. Ordering Physician: Jerry Garcia Referring Physician: Venessa Emmanuel Performed By: Christie Spencer RVT
[2023-09-20 11:56] VITALS: BP 141/66; PULSE 72; RESP 18; TEMP 36.6
[2023-09-24 08:17] VITALS: BP 148/75; PULSE 81; RESP 18
--- NOTE | 2023-09-24 08:52 | PCM.WC.PN ---
History of Present Illness Date of Service: 09/24/23 Chief Complaint: Left posterior calf ulceration History of Wound: 63-year-old male follow-up bilateral lower extremity wounds secondary to venous insufficiency. Patient denies constitutional symptoms. Patient denies chest pain calf pain shortness of breath. Patient compliant with treatment no new issues today. Progress of Wound: Follow-up bilateral leg ulcerations. No changes since previous evaluation. Denies constitutional symptoms. Awaiting vascular studies. Compliant with dressing changes. Objective Data Objective Data Vital Signs: Vital Signs Temp Pulse Resp BP O2 Del Method 98 F 81 18 148/75 H Room Air 09/20/23 11:56 09/24/23 08:17 09/24/23 08:17 09/24/23 08:17 09/24/23 08:17 Oxygen Delivery Method Room Air Physical Exam Narrative Vascular: Dorsalis pedis and posterior tibial pulses palpable 2 out of 4 to bilateral lower extremity. Capillary fill time brisk. +2 pitting edema noted to bilateral perimalleolar region. Atrophic skin changes noted. Neurologic: Light touch protective sensation intact bilateral feet. No evidence of clonus or Babinski sign. Dermatologic: Full-thickness wound to right anterior leg and posterior left leg. Wounds demonstrate fibrotic base predebridement. Postdebridement wound yielded 100% granular base clean skin edges with no deep probing or undermining. Pre and postdebridement measurements documented nursing notes. Musculoskeletal: No pain with calf squeeze bilateral lower extremity. Muscular strength full. No wound forming deformities noted. Const alert and oriented x3 Debridement Note Debridement Note Post-Debridement Measurements and Additional Note: Post-Debridement Measurements/Treatment - Nurse 1 - General Ulcer Assessment Start: 09/10/23 08:19 Freq: Status: Active Protocol: ABIGAIL.AB Activity Type Activity Date Activity User E-sign Co-sign Detail Recorded Client Recorded Date Recorded By Document 09/10/23 08:19 MT Desktop 09/10/23 08:32 MT Document 09/17/23 08:09 DL Desktop 09/17/23 08:17 DL Document 09/24/23 08:17 KW Desktop 09/24/23 08:22 KW 09/10/23 09/17/23 09/24/23 08:19 08:09 08:17 - Today's Visit Information Type of service Initial Visit Follow-up Visit Follow-up Visit (Physician/PHYSICIAN OBSTETRICIAN (Physician/PHYSICIAN OBSTETRICIAN ) ) Arrival Mode Ambulatory Ambulatory Ambulatory Transfer Assistance None Accompanied by self Patient Identification Verified (Name & Yes Yes Yes ) Patient Requires Transmission-Based No Precautions Safety Precautions Fall Prevention Vital Signs Temperature (97.8 F-99.1 F) 98 F 97 F L Temperature Source Temporal Temporal Pulse Rate (60-100) 83 69 81 Pulse Location Monitor Monitor Monitor Respiratory Rate (12-18) 18 18 18 Respiratory rate source Observation Observation Observation Oxygen Delivery Method Room Air Room Air Blood Pressure (90/60-120/80) 158/101 H 124/73 H 148/75 H Blood Pressure Mean (mm Hg) 120 90 99 Source Monitor Monitor Manual Position Sitting Semi-Fowlers Semi-Fowlers Blood Pressure Location Left Arm Left Arm Left Arm History Since Last Visit- (Skip if this is Patient's initial visit) Have you changed medications since your No No last visit? Any new allergies or adverse reactions No No Had a fall/change in ADL's that may No No increase risk of falls Signs or symptoms of abuse and/or No No neglect since last visit Have you been in the hospital since your No No last visit? Has dressing in place as prescribed Yes Yes Has compression in place as prescribed Yes Yes Has offloadiing in place as prescribed No N/A Experienced any changes in pain level or No No management Left Footwear Regular Shoe Regular Shoe Regular Shoe Right Footwear Regular Shoe Regular Shoe Regular Shoe Pain Scale: 0-10 Numeric Is Patient Pain Free? No Yes Yes WC - Nurse 1 - General Ulcer Measurement Start: 09/10/23 08:19 Freq: Status: Active Protocol: Activity Type Activity Date Activity User E-sign Co-sign Detail Recorded Client Recorded Date Recorded By Document 09/10/23 08:19 MT Desktop 09/10/23 08:32 MT Document 09/17/23 08:09 DL Desktop 09/17/23 08:17 DL Document 09/24/23 08:22 KW Desktop 09/24/23 08:24 KW 09/10/23 09/17/23 09/24/23 08:19 08:09 08:22 Wound Center Nurse 1 #5 Left Ant Cluster -Combined with other wound No -Current Size (cm) - Length 13.4 0.1 -Current Size (cm) - Width 0.3 0.1 -Current Size (cm) - Depth 0.1 0.1 -Total Square Cm 4.02 0.01 -Date of Last Picture (Recall this 09/10/23 field) -Photo Taken Yes -Epithelialization Small 1-33% -Tunneling No No -Undermining/Tunneling No No -Circular Undermining No No -Exudate Amt Large Medium -Exudate Type Serosanguineous Serosanguineous -Wound Margin Flat & Intact Distinct, Outline Attached -Granulation Amt Medium (34-66%) Medium (34-66%) -Granulation Quality Pale,Bacliff Bacliff -Slough/Fibrin Yes -Necrosis Amt Medium (34-66%) Medium (34-66%) -Necrotic Tissue Type Adherent Slough Adherent Slough -Structure Exposed N/A -Texture (Jessica-wound Skin Appearance) Assessed, Assessed Assessed Localized Edema -Moisture (Jessica-wound Skin Appearance) Assessed, Assessed Assessed Maceration -Color (Jessica-wound Skin Appearance) Assessed, Assessed,Rubor Assessed Hemosiderin Staining -Temperature (Jessica-wound Skin No Abnormality No Abnormality No Abnormality Appearance) (Pt Warm) (Pt Warm) (Pt Warm) -Tenderness on Palpation (Jessica-wound No No No Skin Appearance) -Ulcer Cleansing Soap and Water Wound Cleanser Soap and Water -Foul Odor after Cleansing No No -Anesthetic Used 5% Lidocaine 5% Lidocaine Gel Gel #6 Right Ant Calf -Combined with other wound No -Current Size (cm) - Length 4.4 4 3.8 -Current Size (cm) - Width 3.4 4.4 3.5 -Current Size (cm) - Depth 0.1 0.1 0.1 -Total Square Cm 14.96 17.6 13.30 -Date of Last Picture (Recall this 09/10/23 field) -Photo Taken No -Epithelialization None Present -Tunneling No No -Undermining/Tunneling No No -Circular Undermining No -Exudate Amt Large Large Medium -Exudate Type Serosanguineous Serosanguineous Serosanguineous -Wound Margin Flat & Intact Distinct, Distinct, Outline Outline Attached Attached -Granulation Amt Medium (34-66%) Medium (34-66%) Medium (34-66%) -Granulation Quality Pale,[place]acliff Red -Slough/Fibrin Yes -Necrosis Amt Medium (34-66%) Medium (34-66%) Medium (34-66%) -Necrotic Tissue Type Adherent Slough Adherent Slough Adherent Slough -Structure Exposed N/A -Texture (Jessica-wound Skin Appearance) Assessed Assessed Assessed -Moisture (Jessica-wound Skin Appearance) Assessed Assessed, Assessed Weeping -Color (Jessica-wound Skin Appearance) Assessed Assessed,Rubor Assessed, Erythema -Temperature (Jessica-wound Skin No Abnormality No Abnormality No Abnormality Appearance) (Pt Warm) (Pt Warm) (Pt Warm) -Tenderness on Palpation (Jessica-wound No No No Skin Appearance) -Ulcer Cleansing Soap and Water Wound Cleanser Soap and Water -Foul Odor after Cleansing No No No -Anesthetic Used 5% Lidocaine 5% Lidocaine 5% Lidocaine Gel Gel Gel #4 Left Post Calf -Combined with other wound No -Current Size (cm) - Length 1.8 1.8 2.5 -Current Size (cm) - Width 3.0 2.3 2.3 -Current Size (cm) - Depth 0.1 0.1 0.1 -Total Square Cm 5.40 4.14 5.75 -Date of Last Picture (Recall this 09/10/23 field) -Photo Taken Yes -Tunneling No No -Undermining/Tunneling No No -Circular Undermining No No -Exudate Amt Large Medium Small -Exudate Type Serosanguineous Serosanguineous Serosanguineous -Wound Margin Flat & Intact Distinct, Distinct, Outline Outline Attached Attached -Granulation Amt Small (1-33%) Medium (34-66%) Small (1-33%) -Granulation Quality Pale,Bacliff Bacliff Bacliff -Slough/Fibrin Yes -Necrosis Amt Large (67-100%) Medium (34-66%) Large (67-100%) -Necrotic Tissue Type Adherent Slough Adherent Slough Adherent Slough -Structure Exposed N/A -Texture (Jessica-wound Skin Appearance) Assessed, Assessed Assessed Localized Edema -Moisture (Jessica-wound Skin Appearance) Assessed, Assessed Assessed Maceration -Color (Jessica-wound Skin Appearance) Assessed Assessed,Rubor Assessed -Temperature (Jessica-wound Skin No Abnormality No Abnormality No Abnormality Appearance) (Pt Warm) (Pt Warm) (Pt Warm) -Tenderness on Palpation (Jessica-wound No No No Skin Appearance) -Ulcer Cleansing Soap and Water Wound Cleanser Soap and Water -Foul Odor after Cleansing No No -Anesthetic Used 5% Lidocaine 5% Lidocaine 5% Lidocaine Gel Gel Gel Lower Limb Edema Present Yes Right Calf (cm) 48.5 47.5 49.5 Right Ankle (cm) 37.5 28 28.5 Left Calf (cm) 57.3 52 52.5 Left Ankle (cm) 32.0 29.5 29.5 WC - Nurse 2 - General Ulcer CM Notes Start: 09/10/23 08:19 Freq: Status: Active Protocol: Activity Type Activity Date Activity User E-sign Co-sign Detail Recorded Client Recorded Date Recorded By Document 09/10/23 09:26 [id number] 09/10/23 09:29 Document 09/17/23 08:40 Laptop 09/17/23 08:44 Document 09/24/23 08:38 Laptop 09/24/23 08:40 09/10/23 09/17/23 09/24/23 09:26 08:40 08:38 Wound Center Nurse 2 #5 Left Ant Cluster -Time 08:41 -Correct Patient No Yes No -Correct Side, Site, Position No Yes No -Correct Procedure No Yes No -Procedure Performed No Yes No -Type of Procedure Debridement -Clinical Debridement Subcutaneous -Tissue Removed Subcutaneous -Post Debridement (cm) - Length 0.2 0 -Post Debridement (cm) - Width 0.2 0 -Post Debridement (cm) - Depth 0.1 0 -Total Square (Post) (cm) 0.04 0 -Area of Debridement (cm) - Length 0.2 0 -Area of Debridement (cm) - Width 0.2 0 -Total Square (Area) (cm) 0.04 0 -Tunneling No -Undermining/Tunneling No -Circular Undermining No -Wound/Ulcer Outcome Not Healed Not Healed Healed- Epithelialized -Ulcer Cleansing Rinsed/ Irrigated with Saline -Foul Odor after Cleansing No -Bioengineered Tissue No -Bleeding Controlled with Pressure -Treatment Response Procedure Tolerated Well -Offloading No -Debridement - Subq, 1st 20sq cm No #6 Right Ant Calf -Time 08:41 08:38 -Correct Patient No Yes Yes -Correct Side, Site, Position No Yes Yes -Correct Procedure No Yes Yes -Procedure Performed No Yes Yes -Type of Procedure Debridement Debridement -Clinical Debridement Subcutaneous Subcutaneous -Tissue Removed Subcutaneous Subcutaneous -Post Debridement (cm) - Length 4.0 3.0 -Post Debridement (cm) - Width 4.5 3.4 -Post Debridement (cm) - Depth 0.1 0.2 -Total Square (Post) (cm) 18.00 10.20 -Area of Debridement (cm) - Length 4.0 3.0 -Area of Debridement (cm) - Width 4.5 3.4 -Total Square (Area) (cm) 18.00 10.20 -Tunneling No No -Undermining/Tunneling No No -Circular Undermining No No -Wound/Ulcer Outcome Not Healed Not Healed Not Healed -Ulcer Cleansing Rinsed/ Rinsed/ Irrigated with Irrigated with Saline Saline -Foul Odor after Cleansing No No -Bioengineered Tissue No No -Bleeding Controlled with Pressure Pressure -Treatment Response Procedure Procedure Tolerated Well Tolerated Well -Offloading No No -Debridement - Subq, 1st 20sq cm No No #4 Left Post Calf -Time 09:28 08:43 08:39 -Correct Patient Yes Yes Yes -Correct Side, Site, Position Yes Yes Yes -Correct Procedure Yes Yes Yes -Procedure Performed Yes Yes Yes -Type of Procedure Debridement Debridement Debridement -Clinical Debridement Epidermis / Subcutaneous Subcutaneous Dermis -Tissue Removed Epidermis, Subcutaneous Subcutaneous Dermis -Post Debridement (cm) - Length 1.8 1.3 -Post Debridement (cm) - Width 2.4 1.7 -Post Debridement (cm) - Depth 0.1 0.2 -Total Square (Post) (cm) 4.32 2.21 -Area of Debridement (cm) - Length 0.8 1.3 -Area of Debridement (cm) - Width 2.4 1.7 -Total Square (Area) (cm) 1.92 2.21 -Tunneling No No No -Undermining/Tunneling No No No -Circular Undermining No No No -Wound/Ulcer Outcome Not Healed Not Healed Not Healed -Ulcer Cleansing Rinsed/ Rinsed/ Rinsed/ Irrigated with Irrigated with Irrigated with Saline Saline Saline -Foul Odor after Cleansing No No No -Bioengineered Tissue No No No -Bleeding Controlled with Pressure Pressure Pressure -Treatment Response Procedure Procedure Procedure Tolerated Well Tolerated Well Tolerated Well -Offloading No No No -Debridement - Open, 1st 20sq cm Yes -Debridement - Subq, 1st 20sq cm Yes Yes -Debridement, SubQ, ea addt'l 20sq cm 1 or part thereof Pain Scale: 0-10 Numeric Is Patient Pain Free? Yes Yes Yes WC - Nurse 3 - General Ulcer D/C NN Start: 09/10/23 08:19 Freq: Status: Active Protocol: Activity Type Activity Date Activity User E-sign Co-sign Detail Recorded Client Recorded Date Recorded By Document 09/10/23 09:01 KW Desktop 09/10/23 09:03 KW Document 09/17/23 08:51 RB Desktop 09/17/23 08:53 RB Document 09/20/23 11:56 MT Desktop 09/20/23 12:12 MT 09/10/23 09/17/23 09/20/23 09:01 08:51 11:56 Wound Care Center Nurse 3 #5 Left Ant Cluster -Ulcer Cleansing betadine -Primary Dressing Applied Silvercel -Other Dressing silvercel -Primary Dressing Covered/Secured with Dry Gauze & Dry Gauze & Roll Gauze, Roll Gauze, Secured with Secured with Tape Tape -Silvercel 1 #6 Right Ant Calf -Ulcer Cleansing betadine -Primary Dressing Applied Silvercel Silvercel -Other Dressing betadine -Primary Dressing Covered/Secured with Dry Gauze & Dry Gauze & Roll Gauze, Roll Gauze Secured with Tape -Silvercel 1 1 #4 Left Post Calf -Ulcer Cleansing betadine Soap and Water painted to wound -Foul Odor after Cleansing No -Negative Pressure Wound Therapy N/A -Primary Dressing Applied Silvercel -Other Dressing silvercel ABD -Primary Dressing Covered/Secured with Dry Gauze Dry Gauze & Secured with Roll Gauze Tape -Silvercel 1 Right -Multi-Layered Wrap Application Multi-Layer Comp - Bilat ($ ) -Tubular Bandage Single Layer Single Layer -Size of Tubigrip Used Size F Size E -Size E ($) 1 -Size F ($) 1 Left -Tubular Bandage Single Layer Single Layer -Size of Tubigrip Used Size F Size F -Size F ($) 1 1 Treatment Response Procedure Tolerated Well Vital Signs Temperature (97.8 F-99.1 F) 98 F Temperature Source Temporal Pulse Rate (60-100) 72 Pulse Location Monitor Respiratory Rate (12-18) 18 Respiratory rate source Observation Oxygen Delivery Method Room Air Blood Pressure (90/60-120/80) 141/66 H Blood Pressure Mean (mm Hg) 91 Source Monitor Position Sitting Blood Pressure Location Left Arm Pain Scale: 0-10 Numeric Is Patient Pain Free? Yes Yes Yes WC - Visit Discharge Discharge Condition Stable Stable Stable Ambulatory Status Ambulatory Ambulatory Ambulatory Transportation Private Auto Private Auto Private Auto Medication Reconcilliation completed & No No No provided to patient/care provider Clinical Summary of Care Provided Yes Yes Yes Notes: nurse visit alesha 3M Assessment/Plan Assessment/Plan (1) Venous insufficiency (chronic) (peripheral): CODE(S): I87.2 - Venous insufficiency (chronic) (peripheral) PLAN: Exam performed. Arterial studies within normal limits Venous studies demonstrate some venous insufficiency, will refer to vascular surgery Continue continue compression and elevation exercise for edema management No concern for bacterial infection at current Continue Betadine, silver alginate, 3M compression wrap, change twice weekly. Bilateral leg wounds were debrided excisionally down to including level of subcutaneous tissue of all nonviable tissue using 5 mm dermal curette without incident. Pre and postdebridement measurements documented nursing notes. Topical anesthesia used. Hemostasis with light compression. Patient tolerated procedure well. Patient will follow-up in 1 week. Will plan for lymphedema pumps upon completion of treatment (2) Non-pressure chronic ulcer of right calf with fat layer exposed: CODE(S): L97.212 - Non-pressure chronic ulcer of right calf with fat layer exposed (3) Non-pressure chronic ulcer of left calf with fat layer exposed: CODE(S): L97.222 - Non-pressure chronic ulcer of left calf with fat layer exposed (4) Stasis dermatitis of both legs: CODE(S): I87.2 - Venous insufficiency (chronic) (peripheral)
[2023-10-01 08:22] VITALS: BP 146/53; PULSE 68; RESP 18; TEMP 37.1
--- NOTE | 2023-10-01 08:48 | PN.PCM_ITS ---
History of Present Illness Date of Service: 10/01/23 Chief Complaint: Left posterior calf ulceration History of Wound: 63-year-old male follow-up bilateral lower extremity wounds secondary to venous insufficiency. Patient denies constitutional symptoms. Patient denies chest pain calf pain shortness of breath. Patient compliant with treatment no new issues today. Progress of Wound: Follow-up bilateral leg ulcerations. No changes since previous evaluation. Denies constitutional symptoms. Awaiting vascular studies. Compliant with dressing changes. Objective Data Objective Data Vital Signs: Vital Signs Temp Pulse Resp BP O2 Del Method 98.7 F 68 18 146/53 H Room Air 10/01/23 08:22 10/01/23 08:22 10/01/23 08:22 10/01/23 08:22 09/24/23 08:17 Oxygen Delivery Method Room Air Physical Exam Narrative Vascular: Dorsalis pedis and posterior tibial pulses palpable 2 out of 4 to bilateral lower extremity. Capillary fill time brisk. +2 pitting edema noted to bilateral perimalleolar region. Atrophic skin changes noted. Neurologic: Light touch protective sensation intact bilateral feet. No evidence of clonus or Babinski sign. Dermatologic: Full-thickness wound to right anterior leg and posterior left leg. Wounds demonstrate fibrotic base predebridement. Postdebridement wound yielded 100% granular base clean skin edges with no deep probing or undermining. Pre and postdebridement measurements documented nursing notes. Musculoskeletal: No pain with calf squeeze bilateral lower extremity. Muscular strength full. No wound forming deformities noted. Const alert and oriented x3 Debridement Note Debridement Note Post-Debridement Measurements and Additional Note: Post-Debridement Measurements/Treatment WC - Nurse 1 - General Ulcer Assessment Start: 09/10/23 08:19 Freq: Status: Active Protocol: WC.[email or web address] Activity Type Activity Date Activity User E-sign Co-sign Detail Recorded Client Recorded Date Recorded By Document 09/10/23 08:19 MT Desktop 09/10/23 08:32 MT Document 09/17/23 08:09 DL Desktop 09/17/23 08:17 DL Document 09/24/23 08:17 KW Desktop 09/24/23 08:22 KW Document 10/01/23 08:22 RB Desktop 10/01/23 08:25 RB 09/10/23 09/17/23 09/24/23 08:19 08:09 08:17 [facility] Today's Visit Information Type of service Initial Visit Follow-up Visit Follow-up Visit (Physician/PAINT TRIMMER PIPE BOWLS (Physician/PAINT TRIMMER PIPE BOWLS ) ) Arrival Mode Ambulatory Ambulatory Ambulatory Transfer Assistance None Accompanied by self Patient Identification Verified (Name & Yes Yes Yes ) Patient Requires Transmission-Based No Precautions Safety Precautions Fall Prevention Vital Signs Temperature (97.8 F-99.1 F) 98 F 97 F L Temperature Source Temporal Temporal Pulse Rate (60-100) 83 69 81 Pulse Location Monitor Monitor Monitor Respiratory Rate (12-18) 18 18 18 Respiratory rate source Observation Observation Observation Oxygen Delivery Method Room Air Room Air Blood Pressure (90/60-120/80) 158/101 H 124/73 H 148/75 H Blood Pressure Mean (mm Hg) 120 90 99 Source Monitor Monitor Manual Position Sitting Semi-Fowlers Semi-Fowlers Blood Pressure Location Left Arm Left Arm Left Arm History Since Last Visit- (Skip if this is Patient's initial visit) Have you changed medications since your No No last visit? Any new allergies or adverse reactions No No Had a fall/change in ADL's that may No No increase risk of falls Signs or symptoms of abuse and/or No No neglect since last visit Have you been in the hospital since your No No last visit? Has dressing in place as prescribed Yes Yes Has compression in place as prescribed Yes Yes Has offloadiing in place as prescribed No N/A Experienced any changes in pain level or No No management Left Footwear Regular Shoe Regular Shoe Regular Shoe Right Footwear Regular Shoe Regular Shoe Regular Shoe Pain Scale: 0-10 Numeric Is Patient Pain Free? No Yes Yes 10/01/23 08:22 [facility] Today's Visit Information Type of service Follow-up Visit (Physician/PAINT TRIMMER PIPE BOWLS ) Arrival Mode Ambulatory Transfer Assistance None Accompanied by Patient Identification Verified (Name & Yes ) Patient Requires Transmission-Based No Precautions Safety Precautions Vital Signs Temperature (97.8 F-99.1 F) 98.7 F Temperature Source Temporal Pulse Rate (60-100) 68 Pulse Location Apical Respiratory Rate (12-18) 18 Respiratory rate source Observation Oxygen Delivery Method Blood Pressure (90/60-120/80) 146/53 H Blood Pressure Mean (mm Hg) 84 Source Monitor Position Semi-Fowlers Blood Pressure Location Left Arm History Since Last Visit- (Skip if this is Patient's initial visit) Have you changed medications since your No last visit? Any new allergies or adverse reactions No Had a fall/change in ADL's that may No increase risk of falls Signs or symptoms of abuse and/or No neglect since last visit Have you been in the hospital since your No last visit? Has dressing in place as prescribed Yes Has compression in place as prescribed Yes Has offloadiing in place as prescribed No Experienced any changes in pain level or No management Left Footwear Right Footwear Pain Scale: 0-10 Numeric Is Patient Pain Free? Yes WC - Nurse 1 - General Ulcer Measurement Start: 09/10/23 08:19 Freq: Status: Active Protocol: Activity Type Activity Date Activity User E-sign Co-sign Detail Recorded Client Recorded Date Recorded By Document 09/10/23 08:19 MT Desktop 09/10/23 08:32 MT Document 09/17/23 08:09 DL Desktop 09/17/23 08:17 DL Document 09/24/23 08:22 KW Desktop 09/24/23 08:24 KW Document 10/01/23 08:22 RB Desktop 10/01/23 08:25 RB 09/10/23 09/17/23 09/24/23 08:19 08:09 08:22 Wound Center Nurse 1 #5 Left Ant Cluster -Combined with other wound No -Current Size (cm) - Length 13.4 0.1 -Current Size (cm) - Width 0.3 0.1 -Current Size (cm) - Depth 0.1 0.1 -Total Square Cm 4.02 0.01 -Date of Last Picture (Recall this 09/10/23 field) -Photo Taken Yes -Epithelialization Small 1-33% -Tunneling No No -Undermining/Tunneling No No -Circular Undermining No No -Exudate Amt Large Medium -Exudate Type Serosanguineous Serosanguineous -Wound Margin Flat & Intact Distinct, Outline Attached -Granulation Amt Medium (34-66%) Medium (34-66%) -Granulation Quality Pale,Richardson Richardson -Slough/Fibrin Yes -Necrosis Amt Medium (34-66%) Medium (34-66%) -Necrotic Tissue Type Adherent Slough Adherent Slough -Structure Exposed N/A -Texture (Jessica-wound Skin Appearance) Assessed, Assessed Assessed Localized Edema -Moisture (Jessica-wound Skin Appearance) Assessed, Assessed Assessed Maceration -Color (Jessica-wound Skin Appearance) Assessed, Assessed,Rubor Assessed Hemosiderin Staining -Temperature (Jessica-wound Skin No Abnormality No Abnormality No Abnormality Appearance) (Pt Warm) (Pt Warm) (Pt Warm) -Tenderness on Palpation (Jessica-wound No No No Skin Appearance) -Ulcer Cleansing Soap and Water Wound Cleanser Soap and Water -Foul Odor after Cleansing No No -Anesthetic Used 5% Lidocaine 5% Lidocaine Gel Gel #6 Right Ant Calf -Combined with other wound No -Current Size (cm) - Length 4.4 4 3.8 -Current Size (cm) - Width 3.4 4.4 3.5 -Current Size (cm) - Depth 0.1 0.1 0.1 -Total Square Cm 14.96 17.6 13.30 -Date of Last Picture (Recall this 09/10/23 field) -Photo Taken No -Epithelialization None Present -Tunneling No No -Undermining/Tunneling No No -Circular Undermining No -Exudate Amt Large Large Medium -Exudate Type Serosanguineous Serosanguineous Serosanguineous -Wound Margin Flat & Intact Distinct, Distinct, Outline Outline Attached Attached -Granulation Amt Medium (34-66%) Medium (34-66%) Medium (34-66%) -Granulation Quality Pale,Richardson Richardson Red -Slough/Fibrin Yes -Necrosis Amt Medium (34-66%) Medium (34-66%) Medium (34-66%) -Necrotic Tissue Type Adherent Slough Adherent Slough Adherent Slough -Structure Exposed N/A -Texture (Jessica-wound Skin Appearance) Assessed Assessed Assessed -Moisture (Jessica-wound Skin Appearance) Assessed Assessed, Assessed Weeping -Color (Jessica-wound Skin Appearance) Assessed Assessed,Rubor Assessed, Erythema -Temperature (Jessica-wound Skin No Abnormality No Abnormality No Abnormality Appearance) (Pt Warm) (Pt Warm) (Pt Warm) -Tenderness on Palpation (Jessica-wound No No No Skin Appearance) -Ulcer Cleansing Soap and Water Wound Cleanser Soap and Water -Foul Odor after Cleansing No No No -Anesthetic Used 5% Lidocaine 5% Lidocaine 5% Lidocaine Gel Gel Gel #4 Left Post Calf -Combined with other wound No -Current Size (cm) - Length 1.8 1.8 2.5 -Current Size (cm) - Width 3.0 2.3 2.3 -Current Size (cm) - Depth 0.1 0.1 0.1 -Total Square Cm 5.40 4.14 5.75 -Date of Last Picture (Recall this 09/10/23 field) -Photo Taken Yes -Tunneling No No -Undermining/Tunneling No No -Circular Undermining No No -Exudate Amt Large Medium Small -Exudate Type Serosanguineous Serosanguineous Serosanguineous -Wound Margin Flat & Intact Distinct, Distinct, Outline Outline Attached Attached -Granulation Amt Small (1-33%) Medium (34-66%) Small (1-33%) -Granulation Quality Pale,Richardson Richardson Richardson -Slough/Fibrin Yes -Necrosis Amt Large (67-100%) Medium (34-66%) Large (67-100%) -Necrotic Tissue Type Adherent Slough Adherent Slough Adherent Slough -Structure Exposed N/A -Texture (Jessica-wound Skin Appearance) Assessed, Assessed Assessed Localized Edema -Moisture (Jessica-wound Skin Appearance) Assessed, Assessed Assessed Maceration -Color (Jessica-wound Skin Appearance) Assessed Assessed,Rubor Assessed -Temperature (Jessica-wound Skin No Abnormality No Abnormality No Abnormality Appearance) (Pt Warm) (Pt Warm) (Pt Warm) -Tenderness on Palpation (Jessica-wound No No No Skin Appearance) -Ulcer Cleansing Soap and Water Wound Cleanser Soap and Water -Foul Odor after Cleansing No No -Anesthetic Used 5% Lidocaine 5% Lidocaine 5% Lidocaine Gel Gel Gel Lower Limb Edema Present Yes Right Calf (cm) 48.5 47.5 49.5 Right Ankle (cm) 37.5 28 28.5 Left Calf (cm) 57.3 52 52.5 Left Ankle (cm) 32.0 29.5 29.5 10/01/23 08:22 Wound Center Nurse 1 #5 Left Ant Cluster -Combined with other wound -Current Size (cm) - Length -Current Size (cm) - Width -Current Size (cm) - Depth -Total Square Cm -Date of Last Picture (Recall this field) -Photo Taken -Epithelialization -Tunneling -Undermining/Tunneling -Circular Undermining -Exudate Amt -Exudate Type -Wound Margin -Granulation Amt -Granulation Quality -Slough/Fibrin -Necrosis Amt -Necrotic Tissue Type -Structure Exposed -Texture (Jessica-wound Skin Appearance) -Moisture (Jessica-wound Skin Appearance) -Color (Jessica-wound Skin Appearance) -Temperature (Jessica-wound Skin Appearance) -Tenderness on Palpation (Jessica-wound Skin Appearance) -Ulcer Cleansing -Foul Odor after Cleansing -Anesthetic Used #6 Right Ant Calf -Combined with other wound No -Current Size (cm) - Length 2.7 -Current Size (cm) - Width 2.5 -Current Size (cm) - Depth 0.1 -Total Square Cm 6.75 -Date of Last Picture (Recall this field) -Photo Taken -Epithelialization -Tunneling No -Undermining/Tunneling No -Circular Undermining No -Exudate Amt Medium -Exudate Type Serosanguineous -Wound Margin Distinct, Outline Attached -Granulation Amt Medium (34-66%) -Granulation Quality Richardson -Slough/Fibrin Yes -Necrosis Amt Medium (34-66%) -Necrotic Tissue Type Adherent Slough -Structure Exposed N/A -Texture (Jessica-wound Skin Appearance) Assessed -Moisture (Jessica-wound Skin Appearance) Assessed -Color (Jessica-wound Skin Appearance) Assessed -Temperature (Jessica-wound Skin No Abnormality Appearance) (Pt Warm) -Tenderness on Palpation (Jessica-wound No Skin Appearance) -Ulcer Cleansing Wound Cleanser -Foul Odor after Cleansing No -Anesthetic Used 5% Lidocaine Gel #4 Left Post Calf -Combined with other wound No -Current Size (cm) - Length 2 -Current Size (cm) - Width 2 -Current Size (cm) - Depth 0.1 -Total Square Cm 4 -Date of Last Picture (Recall this field) -Photo Taken -Tunneling No -Undermining/Tunneling No -Circular Undermining No -Exudate Amt Medium -Exudate Type Serosanguineous -Wound Margin Distinct, Outline Attached -Granulation Amt Medium (34-66%) -Granulation Quality Richardson -Slough/Fibrin Yes -Necrosis Amt Medium (34-66%) -Necrotic Tissue Type Adherent Slough -Structure Exposed N/A -Texture (Jessica-wound Skin Appearance) Assessed -Moisture (Jessica-wound Skin Appearance) Assessed -Color (Jessica-wound Skin Appearance) Assessed -Temperature (Jessica-wound Skin No Abnormality Appearance) (Pt Warm) -Tenderness on Palpation (Jessica-wound No Skin Appearance) -Ulcer Cleansing Wound Cleanser -Foul Odor after Cleansing No -Anesthetic Used 5% Lidocaine Gel Lower Limb Edema Present Yes Right Calf (cm) 44 Right Ankle (cm) 28 Left Calf (cm) 49 Left Ankle (cm) 29.5 WC - Nurse 2 - General Ulcer CM Notes Start: 09/10/23 08:19 Freq: Status: Active Protocol: Activity Type Activity Date Activity User E-sign Co-sign Detail Recorded Client Recorded Date Recorded By Document 09/10/23 09:26 [id number] 09/10/23 09:29 Document 09/17/23 08:40 Laptop 09/17/23 08:44 Document 09/24/23 08:38 JF Laptop 09/24/23 08:40 Document 10/01/23 08:33 Laptop 10/01/23 08:36 JF 09/10/23 09/17/23 09/24/23 09:26 08:40 08:38 Wound Center Nurse 2 #5 Left Ant Cluster -Time 08:41 -Correct Patient No Yes No -Correct Side, Site, Position No Yes No -Correct Procedure No Yes No -Procedure Performed No Yes No -Type of Procedure Debridement -Clinical Debridement Subcutaneous -Tissue Removed Subcutaneous -Post Debridement (cm) - Length 0.2 0 -Post Debridement (cm) - Width 0.2 0 -Post Debridement (cm) - Depth 0.1 0 -Total Square (Post) (cm) 0.04 0 -Area of Debridement (cm) - Length 0.2 0 -Area of Debridement (cm) - Width 0.2 0 -Total Square (Area) (cm) 0.04 0 -Tunneling No -Undermining/Tunneling No -Circular Undermining No -Wound/Ulcer Outcome Not Healed Not Healed Healed- Epithelialized -Ulcer Cleansing Rinsed/ Irrigated with Saline -Foul Odor after Cleansing No -Bioengineered Tissue No -Bleeding Controlled with Pressure -Treatment Response Procedure Tolerated Well -Offloading No -Debridement - Subq, 1st 20sq cm No #6 Right Ant Calf -Time 08:41 08:38 -Correct Patient No Yes Yes -Correct Side, Site, Position No Yes Yes -Correct Procedure No Yes Yes -Procedure Performed No Yes Yes -Type of Procedure Debridement Debridement -Clinical Debridement Subcutaneous Subcutaneous -Tissue Removed Subcutaneous Subcutaneous -Post Debridement (cm) - Length 4.0 3.0 -Post Debridement (cm) - Width 4.5 3.4 -Post Debridement (cm) - Depth 0.1 0.2 -Total Square (Post) (cm) 18.00 10.20 -Area of Debridement (cm) - Length 4.0 3.0 -Area of Debridement (cm) - Width 4.5 3.4 -Total Square (Area) (cm) 18.00 10.20 -Tunneling No No -Undermining/Tunneling No No -Circular Undermining No No -Wound/Ulcer Outcome Not Healed Not Healed Not Healed -Ulcer Cleansing Rinsed/ Rinsed/ Irrigated with Irrigated with Saline Saline -Foul Odor after Cleansing No No -Bioengineered Tissue No No -Bleeding Controlled with Pressure Pressure -Treatment Response Procedure Procedure Tolerated Well Tolerated Well -Offloading No No -Debridement - Subq, 1st 20sq cm No No #4 Left Post Calf -Time 09:28 08:43 08:39 -Correct Patient Yes Yes Yes -Correct Side, Site, Position Yes Yes Yes -Correct Procedure Yes Yes Yes -Procedure Performed Yes Yes Yes -Type of Procedure Debridement Debridement Debridement -Clinical Debridement Epidermis / Subcutaneous Subcutaneous Dermis -Tissue Removed Epidermis, Subcutaneous Subcutaneous Dermis -Post Debridement (cm) - Length 1.8 1.3 -Post Debridement (cm) - Width 2.4 1.7 -Post Debridement (cm) - Depth 0.1 0.2 -Total Square (Post) (cm) 4.32 2.21 -Area of Debridement (cm) - Length 0.8 1.3 -Area of Debridement (cm) - Width 2.4 1.7 -Total Square (Area) (cm) 1.92 2.21 -Tunneling No No No -Undermining/Tunneling No No No -Circular Undermining No No No -Wound/Ulcer Outcome Not Healed Not Healed Not Healed -Ulcer Cleansing Rinsed/ Rinsed/ Rinsed/ Irrigated with Irrigated with Irrigated with Saline Saline Saline -Foul Odor after Cleansing No No No -Bioengineered Tissue No No No -Bleeding Controlled with Pressure Pressure Pressure -Treatment Response Procedure Procedure Procedure Tolerated Well Tolerated Well Tolerated Well -Offloading No No No -Debridement - Open, 1st 20sq cm Yes -Debridement - Subq, 1st 20sq cm Yes Yes -Debridement, SubQ, ea addt'l 20sq cm 1 or part thereof Pain Scale: 0-10 Numeric Is Patient Pain Free? Yes Yes Yes 10/01/23 08:33 Wound Center Nurse 2 #5 Left Ant Cluster -Time -Correct Patient -Correct Side, Site, Position -Correct Procedure -Procedure Performed -Type of Procedure -Clinical Debridement -Tissue Removed -Post Debridement (cm) - Length -Post Debridement (cm) - Width -Post Debridement (cm) - Depth -Total Square (Post) (cm) -Area of Debridement (cm) - Length -Area of Debridement (cm) - Width -Total Square (Area) (cm) -Tunneling -Undermining/Tunneling -Circular Undermining -Wound/Ulcer Outcome -Ulcer Cleansing -Foul Odor after Cleansing -Bioengineered Tissue -Bleeding Controlled with -Treatment Response -Offloading -Debridement - Subq, 20sq cm #6 Right Ant Calf -Time 08:34 -Correct Patient Yes -Correct Side, Site, Position Yes -Correct Procedure Yes -Procedure Performed Yes -Type of Procedure Debridement -Clinical Debridement Subcutaneous -Tissue Removed Subcutaneous -Post Debridement (cm) - Length 3.0 -Post Debridement (cm) - Width 1.5 -Post Debridement (cm) - Depth 0.1 -Total Square (Post) (cm) 4.50 -Area of Debridement (cm) - Length 3.0 -Area of Debridement (cm) - Width 1.5 -Total Square (Area) (cm) 4.50 -Tunneling No -Undermining/Tunneling No -Circular Undermining No -Wound/Ulcer Outcome Not Healed -Ulcer Cleansing Rinsed/ Irrigated with Saline -Foul Odor after Cleansing No -Bioengineered Tissue No -Bleeding Controlled with Pressure -Treatment Response Procedure Tolerated Well -Offloading No -Debridement - Subq, 20sq cm No #4 Left Post Calf -Time 08:35 -Correct Patient Yes -Correct Side, Site, Position Yes -Correct Procedure Yes -Procedure Performed Yes -Type of Procedure Debridement -Clinical Debridement Subcutaneous -Tissue Removed Subcutaneous -Post Debridement (cm) - Length 2.0 -Post Debridement (cm) - Width 2.0 -Post Debridement (cm) - Depth 0.2 -Total Square (Post) (cm) 4.00 -Area of Debridement (cm) - Length 2.0 -Area of Debridement (cm) - Width 2.0 -Total Square (Area) (cm) 4.00 -Tunneling No -Undermining/Tunneling No -Circular Undermining No -Wound/Ulcer Outcome Not Healed -Ulcer Cleansing Rinsed/ Irrigated with Saline -Foul Odor after Cleansing No -Bioengineered Tissue No -Bleeding Controlled with Pressure -Treatment Response Procedure Tolerated Well -Offloading No -Debridement - Open, 1st 20sq cm -Debridement - Subq, 1st 20sq cm Yes -Debridement, SubQ, ea addt'l 20sq cm or part thereof Pain Scale: 0-10 Numeric Is Patient Pain Free? Yes WC - Nurse 3 - General Ulcer D/C NN Start: 09/10/23 08:19 Freq: Status: Active Protocol: Activity Type Activity Date Activity User E-sign Co-sign Detail Recorded Client Recorded Date Recorded By Document 09/10/23 09:01 KW Desktop 09/10/23 09:03 KW Document 09/17/23 08:51 RB Desktop 09/17/23 08:53 RB Document 09/20/23 11:56 MT Desktop 09/20/23 12:12 MT Document 09/24/23 08:58 KW Desktop 09/24/23 09:00 KW Document 10/01/23 08:41 KW Desktop 10/01/23 08:47 KW 09/10/23 09/17/23 09/20/23 09:01 08:51 11:56 Wound Care Center Nurse 3 #5 Left Ant Cluster -Ulcer Cleansing betadine -Primary Dressing Applied Silvercel -Other Dressing silvercel -Primary Dressing Covered/Secured with Dry Gauze & Dry Gauze & Roll Gauze, Roll Gauze, Secured with Secured with Tape Tape -Silvercel 1 #6 Right Ant Calf -Ulcer Cleansing betadine -Primary Dressing Applied Silvercel Silvercel -Other Dressing betadine -Primary Dressing Covered/Secured with Dry Gauze & Dry Gauze & Roll Gauze, Roll Gauze Secured with Tape -Optilok 6.5x10 -Silvercel 1 1 -Wound Comment(s) #4 Left Post Calf -Ulcer Cleansing betadine Soap and Water painted to wound -Foul Odor after Cleansing No -Negative Pressure Wound Therapy N/A -Primary Dressing Applied Silvercel -Other Dressing silvercel ABD -Primary Dressing Covered/Secured with Dry Gauze Dry Gauze & Secured with Roll Gauze Tape -Aquacel AG 2x2 -Optilok 6.5x10 -Silvercel 1 BLE -Lotion applied to leg before compression wrap -Multi-Layered Wrap Application Right -Multi-Layered Wrap Application Multi-Layer Comp - Bilat ($ ) -Tubular Bandage Single Layer Single Layer -Size of Tubigrip Used Size F Size E -Size E ($) 1 -Size F ($) 1 Left -Tubular Bandage Single Layer Single Layer -Size of Tubigrip Used Size F Size F -Size F ($) 1 1 Treatment Response Procedure Tolerated Well Vital Signs Temperature (97.8 F-99.1 F) 98 F Temperature Source Temporal Pulse Rate (60-100) 72 Pulse Location Monitor Respiratory Rate (12-18) 18 Respiratory rate source Observation Oxygen Delivery Method Room Air Blood Pressure (90/60-120/80) 141/66 H Blood Pressure Mean (mm Hg) 91 Source Monitor Position Sitting Blood Pressure Location Left Arm Pain Scale: 0-10 Numeric Is Patient Pain Free? Yes Yes Yes WC - Visit Discharge Discharge Condition Stable Stable Stable Ambulatory Status Ambulatory Ambulatory Ambulatory Transportation Private Auto Private Auto Private Auto Medication Reconcilliation completed & No No No provided to patient/care provider Clinical Summary of Care Provided Yes Yes Yes Notes: nurse visit silvercel and bilat 09/24/23 10/01/23 08:58 08:41 Wound Care Center Nurse 3 #5 Left Ant Cluster -Ulcer Cleansing -Primary Dressing Applied -Other Dressing -Primary Dressing Covered/Secured with -Silvercel #6 Right Ant Calf -Ulcer Cleansing -Primary Dressing Applied Optilok 6.5x10 -Other Dressing own silvercel -Primary Dressing Covered/Secured with Dry Gauze & Roll Gauze, Secured with Tape -Optilok 6.5x10 1 -Silvercel -Wound Comment(s) aquacel ag #4 Left Post Calf -Ulcer Cleansing -Foul Odor after Cleansing -Negative Pressure Wound Therapy -Primary Dressing Applied Aquacel AG 2x2 -Other Dressing own silvercel -Primary Dressing Covered/Secured with Dry Gauze & Roll Gauze, Secured with Tape -Aquacel AG 2x2 1 -Optilok 6.5x10 1 -Silvercel BLE -Lotion applied to leg before Yes compression wrap -Multi-Layered Wrap Application Multi-Layer Multi-Layer Comp - Bilat ($ Comp - Bilat ($ ) ) Right -Multi-Layered Wrap Application -Tubular Bandage -Size of Tubigrip Used -Size E ($) -Size F ($) Left -Tubular Bandage -Size of Tubigrip Used -Size F ($) Treatment Response Vital Signs Temperature (97.8 F-99.1 F) Temperature Source Pulse Rate (60-100) Pulse Location Respiratory Rate (12-18) Respiratory rate source Oxygen Delivery Method Blood Pressure (90/60-120/80) Blood Pressure Mean (mm Hg) Source Position Blood Pressure Location Pain Scale: 0-10 Numeric Is Patient Pain Free? Yes Yes WC - Visit Discharge Discharge Condition Stable Stable Ambulatory Status Ambulatory Ambulatory Transportation Private Auto Private Auto Medication Reconcilliation completed & No No provided to patient/care provider Clinical Summary of Care Provided Yes Yes Notes: Assessment/Plan Assessment/Plan (1) Venous insufficiency (chronic) (peripheral): CODE(S): I87.2 - Venous insufficiency (chronic) (peripheral) PLAN: Exam performed. Arterial studies within normal limits Venous studies demonstrate some venous insufficiency, will refer to vascular surgery Continue continue compression and elevation exercise for edema management No concern for bacterial infection at current Continue Betadine, silver alginate, 3M compression wrap, change twice weekly. Bilateral leg wounds were debrided excisionally down to including level of subcutaneous tissue of all nonviable tissue using 5 mm dermal curette without incident. Pre and postdebridement measurements documented nursing notes. Topical anesthesia used. Hemostasis with light compression. Patient tolerated procedure well. Patient will follow-up in 1 week. Will plan for lymphedema pumps upon completion of treatment (2) Non-pressure chronic ulcer of right calf with fat layer exposed: CODE(S): L97.212 - Non-pressure chronic ulcer of right calf with fat layer exposed (3) Non-pressure chronic ulcer of left calf with fat layer exposed: CODE(S): L97.222 - Non-pressure chronic ulcer of left calf with fat layer exposed (4) Stasis dermatitis of both legs: CODE(S): I87.2 - Venous insufficiency (chronic) (peripheral)
== END 2023-10-01 23:59 | disposition home or self-care (01) ==
LOC: WC 08:00
PROVIDERS: PCP Nurse Practitioner Family; Referring Provider Podiatrist; Visit Provider Podiatrist
DX: L97.212 Non-pressure chronic ulcer of right calf with fat layer exposed (principal); L97.222 Non-pressure chronic ulcer of left calf with fat layer exposed; E78.5 Hyperlipidemia, unspecified; I87.2 Venous insufficiency (chronic) (peripheral); Z86.718 Personal history of other venous thrombosis and embolism; Z86.711 Personal history of pulmonary embolism; I89.0 Lymphedema, not elsewhere classified
CPT/HCPCS: 11042; 11045; 29581; 93923; 93970; 97597; 99214; G0463

== ENCOUNTER 2023-10-29 08:30 | Outpatient (RCR) | payer OTHER, SELFPAY ==
[2023-10-02 00:55] VITALS: BP 146/53; PULSE 68; RESP 18; TEMP 37.1
[2023-10-08 08:25] VITALS: BP 144/63; PULSE 63; RESP 18; TEMP 36.9
--- NOTE | 2023-10-08 10:20 | PCM.WC.PN ---
History of Present Illness Date of Service: 10/08/23 Chief Complaint: Left posterior calf ulceration History of Wound: 63-year-old male follow-up bilateral lower extremity wounds secondary to venous insufficiency. Patient denies constitutional symptoms. Patient denies chest pain calf pain shortness of breath. Patient compliant with treatment no new issues today. Objective Data Objective Data Vital Signs: Vital Signs Temp Pulse Resp BP 98.4 F 63 18 144/63 H 10/08/23 08:25 10/08/23 08:25 10/08/23 08:25 10/08/23 08:25 Physical Exam Narrative Vascular: Dorsalis pedis and posterior tibial pulses palpable 2 out of 4 to bilateral lower extremity. Capillary fill time brisk. +2 pitting edema noted to bilateral perimalleolar region. Atrophic skin changes noted. Neurologic: Light touch protective sensation intact bilateral feet. No evidence of clonus or Babinski sign. Dermatologic: Full-thickness wound to right anterior leg and posterior left leg. Wounds demonstrate fibrotic base predebridement. Postdebridement wound yielded 100% granular base clean skin edges with no deep probing or undermining. Pre and postdebridement measurements documented nursing notes. Musculoskeletal: No pain with calf squeeze bilateral lower extremity. Muscular strength full. No wound forming deformities noted. Const alert and oriented x3 Debridement Note Debridement Note Post-Debridement Measurements and Additional Note: Post-Debridement Measurements/Treatment - Nurse 1 - General Ulcer Assessment Start: 10/08/23 08:25 Freq: Status: Active Protocol: WC.LOWEXT Activity Type Activity Date Activity User E-sign Co-sign Detail Recorded Client Recorded Date Recorded By Document 10/08/23 08:25 Desktop 10/08/23 08:28 10/08/23 08:25 - Today's Visit Information Type of service Follow-up Visit (Physician/SUPERINTENDENT STEVEDORING ) Arrival Mode Ambulatory Transfer Assistance None Patient Identification Verified (Name & Yes ) Patient Requires Transmission-Based No Precautions Vital Signs Temperature (97.8 F-99.1 F) 98.4 F Temperature Source Temporal Pulse Rate (60-100) 63 Pulse Location Monitor Respiratory Rate (12-18) 18 Respiratory rate source Observation Blood Pressure (90/60-120/80) 144/63 H Blood Pressure Mean (mm Hg) 90 Source Monitor Position Semi-Fowlers Blood Pressure Location Left Arm History Since Last Visit- (Skip if this is Patient's initial visit) Have you changed medications since your No last visit? Any new allergies or adverse reactions No Had a fall/change in ADL's that may No increase risk of falls Signs or symptoms of abuse and/or No neglect since last visit Have you been in the hospital since your No last visit? Has dressing in place as prescribed Yes Has compression in place as prescribed Yes Has offloadiing in place as prescribed No Experienced any changes in pain level or No management Pain Scale: 0-10 Numeric Is Patient Pain Free? Yes WC - Nurse 1 - General Ulcer Measurement Start: 10/08/23 08:25 Freq: Status: Active Protocol: Activity Type Activity Date Activity User E-sign Co-sign Detail Recorded Client Recorded Date Recorded By Document 10/08/23 08:25 RB Desktop 10/08/23 08:28 RB 10/08/23 08:25 Wound Center Nurse 1 #6 Right Ant Calf -Combined with other wound No -Current Size (cm) - Length 2 -Current Size (cm) - Width 1 -Current Size (cm) - Depth 0.1 -Total Square Cm 2 -Tunneling No -Undermining/Tunneling No -Circular Undermining No -Exudate Amt Medium -Exudate Type Serosanguineous -Wound Margin Distinct, Outline Attached -Granulation Amt Medium (34-66%) -Granulation Quality [place] -Slough/Fibrin Yes -Necrosis Amt Medium (34-66%) -Necrotic Tissue Type Adherent Slough -Structure Exposed N/A -Texture (Jessica-wound Skin Appearance) Assessed -Moisture (Jessica-wound Skin Appearance) Assessed -Color (Jessica-wound Skin Appearance) Hemosiderin Staining -Temperature (Jessica-wound Skin No Abnormality Appearance) (Pt Warm) -Tenderness on Palpation (Jessica-wound No Skin Appearance) -Ulcer Cleansing Wound Cleanser -Foul Odor after Cleansing No -Anesthetic Used 5% Lidocaine Gel #4 Left Post Calf -Combined with other wound No -Current Size (cm) - Length 1 -Current Size (cm) - Width 1.3 -Current Size (cm) - Depth 0.2 -Total Square Cm 1.3 -Tunneling No -Undermining/Tunneling No -Circular Undermining No -Exudate Amt Medium -Exudate Type Serosanguineous -Wound Margin Distinct, Outline Attached -Granulation Amt Medium (34-66%) -Granulation Quality [place] -Slough/Fibrin Yes -Necrosis Amt Medium (34-66%) -Necrotic Tissue Type Adherent Slough -Structure Exposed N/A -Texture (Jessica-wound Skin Appearance) Assessed -Moisture (Jessica-wound Skin Appearance) Assessed -Color (Jessica-wound Skin Appearance) Hemosiderin Staining -Temperature (Jessica-wound Skin No Abnormality Appearance) (Pt Warm) -Tenderness on Palpation (Jessica-wound No Skin Appearance) -Ulcer Cleansing Wound Cleanser -Foul Odor after Cleansing No -Anesthetic Used 5% Lidocaine Gel Lower Limb Edema Present Yes Right Calf (cm) 44 Right Ankle (cm) 28 Left Calf (cm) 53.5 Left Ankle (cm) 29.5 WC - Nurse 2 - General Ulcer CM Notes Start: 10/08/23 08:25 Freq: Status: Active Protocol: Activity Type Activity Date Activity User E-sign Co-sign Detail Recorded Client Recorded Date Recorded By Document 10/08/23 08:39 Laptop 10/08/23 08:43 10/08/23 08:39 Wound Center Nurse 2 #6 Right Ant Calf -Time 08:39 -Correct Patient Yes -Correct Side, Site, Position Yes -Correct Procedure Yes -Procedure Performed Yes -Type of Procedure Debridement -Clinical Debridement Epidermis / Dermis -Tissue Removed Epidermis, Dermis -Post Debridement (cm) - Length 1.5 -Post Debridement (cm) - Width 1.0 -Post Debridement (cm) - Depth 0.1 -Total Square (Post) (cm) 1.50 -Area of Debridement (cm) - Length 1.5 -Area of Debridement (cm) - Width 1.0 -Total Square (Area) (cm) 1.50 -Tunneling No -Undermining/Tunneling No -Circular Undermining No -Wound/Ulcer Outcome Not Healed -Ulcer Cleansing Rinsed/ Irrigated with Saline -Foul Odor after Cleansing No -Bioengineered Tissue No -Bleeding Controlled with Pressure -Treatment Response Procedure Tolerated Well -Offloading No -Debridement - Open, 1st 20sq cm Yes #4 Left Post Calf -Time 08:40 -Correct Patient Yes -Correct Side, Site, Position Yes -Correct Procedure Yes -Procedure Performed Yes -Type of Procedure Debridement -Clinical Debridement Subcutaneous -Tissue Removed Subcutaneous -Post Debridement (cm) - Length 1.0 -Post Debridement (cm) - Width 1.3 -Post Debridement (cm) - Depth 0.1 -Total Square (Post) (cm) 1.30 -Area of Debridement (cm) - Length 1.0 -Area of Debridement (cm) - Width 1.3 -Total Square (Area) (cm) 1.30 -Tunneling No -Undermining/Tunneling No -Circular Undermining No -Wound/Ulcer Outcome Not Healed -Ulcer Cleansing Rinsed/ Irrigated with Saline -Foul Odor after Cleansing No -Bioengineered Tissue No -Bleeding Controlled with Pressure -Treatment Response Procedure Tolerated Well -Offloading No -Debridement - Subq, 1st 20sq cm Yes Pain Scale: 0-10 Numeric Is Patient Pain Free? Yes - Nurse 3 - General Ulcer D/C NN Start: 10/08/23 08:25 Freq: Status: Active Protocol: Activity Type Activity Date Activity User E-sign Co-sign Detail Recorded Client Recorded Date Recorded By Document 10/08/23 08:59 Desktop 10/08/23 09:01 RB 10/08/23 08:59 Wound Care Center Nurse 3 #6 Right Ant Calf -Other Dressing silvercel/abd pad #4 Left Post Calf -Primary Dressing Applied Optilok 6.5x10 -Other Dressing silvercel -Optilok 6.5x10 1 bilat -Multi-Layered Wrap Application Multi-Layer Comp - Bilat ($ ) Treatment Response Procedure Tolerated Well Pain Scale: 0-10 Numeric Is Patient Pain Free? Yes WC - Visit Discharge Discharge Condition Stable Ambulatory Status Ambulatory Transportation Private Auto Medication Reconcilliation completed & No provided to patient/care provider Clinical Summary of Care Provided Yes Assessment/Plan Assessment/Plan (1) Venous insufficiency (chronic) (peripheral): CODE(S): I87.2 - Venous insufficiency (chronic) (peripheral) PLAN: Exam performed. Arterial studies within normal limits Venous studies demonstrate some venous insufficiency, will refer to vascular surgery Continue continue compression and elevation exercise for edema management No concern for bacterial infection at current Continue Betadine, silver alginate, 3M compression wrap, change twice weekly. Bilateral leg wounds were debrided excisionally down to including level of subcutaneous tissue of all nonviable tissue using 5 mm dermal curette without incident. Pre and postdebridement measurements documented nursing notes. Topical anesthesia used. Hemostasis with light compression. Patient tolerated procedure well. Patient will follow-up in 1 week. Will plan for lymphedema pumps upon completion of treatment (2) Non-pressure chronic ulcer of right calf with fat layer exposed: CODE(S): L97.212 - Non-pressure chronic ulcer of right calf with fat layer exposed (3) Non-pressure chronic ulcer of left calf with fat layer exposed: CODE(S): L97.222 - Non-pressure chronic ulcer of left calf with fat layer exposed (4) Stasis dermatitis of both legs: CODE(S): I87.2 - Venous insufficiency (chronic) (peripheral)
[2023-10-15 10:21] VITALS: BP 134/56; PULSE 72; RESP 18; TEMP 36.3
--- NOTE | 2023-10-15 11:22 | PN.PCM_ITS ---
History of Present Illness Date of Service: 10/15/23 Chief Complaint: Left posterior calf ulceration History of Wound: 63-year-old male follow-up bilateral lower extremity wounds secondary to venous insufficiency. Patient denies constitutional symptoms. Patient denies chest pain calf pain shortness of breath. Patient compliant with treatment no new issues today. Objective Data Objective Data Vital Signs: Vital Signs Temp Pulse Resp BP O2 Del Method 97.3 F L 72 18 134/56 H Room Air 10/15/23 10:10/15/23 10:10/15/23 10:10/15/23 10:10/15/23 10:21 Oxygen Delivery Method Room Air Physical Exam Narrative Vascular: Dorsalis pedis and posterior tibial pulses palpable 2 out of 4 to bilateral lower extremity. Capillary fill time brisk. +2 pitting edema noted to bilateral perimalleolar region. Atrophic skin changes noted. Neurologic: Light touch protective sensation intact bilateral feet. No evidence of clonus or Babinski sign. Dermatologic: Full-thickness wound to right anterior leg and posterior left leg. Wounds demonstrate fibrotic base predebridement. Postdebridement wound yielded 100% granular base clean skin edges with no deep probing or undermining. Pre and postdebridement measurements documented nursing notes. Musculoskeletal: No pain with calf squeeze bilateral lower extremity. Muscular strength full. No wound forming deformities noted. Const alert and oriented x3 Debridement Note Debridement Note Post-Debridement Measurements and Additional Note: Post-Debridement Measurements/Treatment - Nurse 1 - General Ulcer Assessment Start: 10/08/23 08:25 Freq: Status: Active Protocol: ANJU Activity Type Activity Date Activity User E-sign Co-sign Detail Recorded Client Recorded Date Recorded By Document 10/08/23 08:25 RB Desktop 10/08/23 08:28 RB Document 10/15/23 10:21 [id number] [id number] 10/15/23 10:34 KW 10/08/23 10/15/23 08:25 10:21 - Today's Visit Information Type of service Follow-up Visit Follow-up Visit (Physician/HEALTH SCIENCES PROGRAM COORDINATOR (Physician/HEALTH SCIENCES PROGRAM COORDINATOR ) ) Arrival Mode Ambulatory Ambulatory Transfer Assistance None Patient Identification Verified (Name & Yes Yes ) Patient Requires Transmission-Based No Precautions Vital Signs Temperature (97.8 F-99.1 F) 98.4 F 97.3 F L Temperature Source Temporal Temporal Pulse Rate (60-100) 63 72 Pulse Location Monitor Monitor Respiratory Rate (12-18) 18 18 Respiratory rate source Observation Observation Oxygen Delivery Method Room Air Blood Pressure (90/60-120/80) 144/63 H 134/56 H Blood Pressure Mean (mm Hg) 90 82 Source Monitor Monitor Position Semi-Fowlers Sitting Blood Pressure Location Left Arm Left Arm History Since Last Visit- (Skip if this is Patient's initial visit) Have you changed medications since your No No last visit? Any new allergies or adverse reactions No No Had a fall/change in ADL's that may No No increase risk of falls Signs or symptoms of abuse and/or No No neglect since last visit Have you been in the hospital since your No No last visit? Has dressing in place as prescribed Yes Yes Has compression in place as prescribed Yes Yes Has offloadiing in place as prescribed No N/A Experienced any changes in pain level or No No management Left Footwear Regular Shoe Right Footwear Regular Shoe Pain Scale: 0-10 Numeric Is Patient Pain Free? Yes Yes WC - Nurse 1 - General Ulcer Measurement Start: 10/08/23 08:25 Freq: Status: Active Protocol: Activity Type Activity Date Activity User E-sign Co-sign Detail Recorded Client Recorded Date Recorded By Document 10/08/23 08:25 RB Desktop 10/08/23 08:28 RB Document 10/15/23 10:21 KW [id number] 10/15/23 10:34 KW 10/08/23 10/15/23 08:25 10:21 Wound Center Nurse 1 #6 Right Ant Calf -Combined with other wound No -Current Size (cm) - Length 2 0.4 -Current Size (cm) - Width 1 0.4 -Current Size (cm) - Depth 0.1 0.1 -Total Square Cm 2 0.16 -Tunneling No -Undermining/Tunneling No -Circular Undermining No -Exudate Amt Medium Small -Exudate Type Serosanguineous Serous -Wound Margin Distinct, Distinct, Outline Outline Attached Attached -Granulation Amt Medium (34-66%) Large (67-100%) -Granulation Quality [place] -Slough/Fibrin Yes -Necrosis Amt Medium (34-66%) -Necrotic Tissue Type Adherent Slough -Structure Exposed N/A -Texture (Jessica-wound Skin Appearance) Assessed Assessed -Moisture (Jessica-wound Skin Appearance) Assessed Assessed -Color (Jessica-wound Skin Appearance) Hemosiderin Assessed Staining -Temperature (Jessica-wound Skin No Abnormality No Abnormality Appearance) (Pt Warm) (Pt Warm) -Tenderness on Palpation (Jessica-wound No No Skin Appearance) -Ulcer Cleansing Wound Cleanser Soap and Water -Foul Odor after Cleansing No No -Anesthetic Used 5% Lidocaine 5% Lidocaine Gel Gel #4 Left Post Calf -Combined with other wound No -Current Size (cm) - Length 1 0.9 -Current Size (cm) - Width 1.3 0.8 -Current Size (cm) - Depth 0.2 0.3 -Total Square Cm 1.3 0.72 -Tunneling No -Undermining/Tunneling No -Circular Undermining No -Exudate Amt Medium Small -Exudate Type Serosanguineous Serosanguineous -Wound Margin Distinct, Distinct, Outline Outline Attached Attached -Granulation Amt Medium (34-66%) Large (67-100%) -Granulation Quality [place] Red -Slough/Fibrin Yes -Necrosis Amt Medium (34-66%) Small (1-33%) -Necrotic Tissue Type Adherent Slough Adherent Slough -Structure Exposed N/A -Texture (Jessica-wound Skin Appearance) Assessed Assessed -Moisture (Jessica-wound Skin Appearance) Assessed Assessed -Color (Jessica-wound Skin Appearance) Hemosiderin Assessed Staining -Temperature (Jessica-wound Skin No Abnormality No Abnormality Appearance) (Pt Warm) (Pt Warm) -Tenderness on Palpation (Jessica-wound No No Skin Appearance) -Ulcer Cleansing Wound Cleanser Soap and Water -Foul Odor after Cleansing No No -Anesthetic Used 5% Lidocaine 5% Lidocaine Gel Gel Lower Limb Edema Present Yes Right Calf (cm) 44 44.5 Right Ankle (cm) 28 27.5 Left Calf (cm) 53.5 47.5 Left Ankle (cm) 29.5 30 WC - Nurse 2 - General Ulcer CM Notes Start: 10/08/23 08:25 Freq: Status: Active Protocol: Activity Type Activity Date Activity User E-sign Co-sign Detail Recorded Client Recorded Date Recorded By Document 10/08/23 08:39 JF Laptop 10/08/23 08:43 JF Document 10/15/23 10:52 DS [id number] 10/15/23 10:54 DS 10/08/23 10/15/23 08:39 10:52 Wound Center Nurse 2 #6 Right Ant Calf -Time 08:39 10:52 -Correct Patient Yes Yes -Correct Side, Site, Position Yes Yes -Correct Procedure Yes Yes -Procedure Performed Yes Yes -Type of Procedure Debridement Debridement -Clinical Debridement Epidermis / Subcutaneous Dermis -Tissue Removed Epidermis, Subcutaneous Dermis -Post Debridement (cm) - Length 1.5 1.0 -Post Debridement (cm) - Width 1.0 0.5 -Post Debridement (cm) - Depth 0.1 0.1 -Total Square (Post) (cm) 1.50 0.50 -Area of Debridement (cm) - Length 1.5 1.0 -Area of Debridement (cm) - Width 1.0 0.5 -Total Square (Area) (cm) 1.50 0.50 -Tunneling No No -Undermining/Tunneling No No -Circular Undermining No No -Wound/Ulcer Outcome Not Healed Not Healed -Ulcer Cleansing Rinsed/ Irrigated with Saline -Foul Odor after Cleansing No -Bioengineered Tissue No -Bleeding Controlled with Pressure Pressure -Treatment Response Procedure Procedure Tolerated Well Tolerated Well -Offloading No -Debridement - Open, 1st 20sq cm Yes -Debridement - Subq, 1st 20sq cm Yes #4 Left Post Calf -Time 08:40 10:53 -Correct Patient Yes Yes -Correct Side, Site, Position Yes Yes -Correct Procedure Yes Yes -Procedure Performed Yes Yes -Type of Procedure Debridement Debridement -Clinical Debridement Subcutaneous Subcutaneous -Tissue Removed Subcutaneous Subcutaneous -Post Debridement (cm) - Length 1.0 0.8 -Post Debridement (cm) - Width 1.3 0.8 -Post Debridement (cm) - Depth 0.1 0.4 -Total Square (Post) (cm) 1.30 0.64 -Area of Debridement (cm) - Length 1.0 0.8 -Area of Debridement (cm) - Width 1.3 0.8 -Total Square (Area) (cm) 1.30 0.64 -Tunneling No No -Undermining/Tunneling No -Circular Undermining No No -Wound/Ulcer Outcome Not Healed Not Healed -Ulcer Cleansing Rinsed/ Rinsed/ Irrigated with Irrigated with Saline Saline -Foul Odor after Cleansing No -Bioengineered Tissue No -Bleeding Controlled with Pressure Pressure -Treatment Response Procedure Procedure Tolerated Well Tolerated Well -Offloading No -Debridement - Subq, 1st 20sq cm Yes No Pain Scale: 0-10 Numeric Is Patient Pain Free? Yes Yes - Nurse 3 - General Ulcer D/C NN Start: 10/08/23 08:25 Freq: Status: Active Protocol: Activity Type Activity Date Activity User E-sign Co-sign Detail Recorded Client Recorded Date Recorded By Document 10/08/23 08:59 RB Desktop 10/08/23 09:01 RB Document 10/15/23 11:06 KW [id number] 10/15/23 11:06 KW 10/08/23 10/15/23 08:59 11:06 Wound Care Center Nurse 3 #6 Right Ant Calf -Primary Dressing Applied Silvercel -Other Dressing silvercel/abd pad -Primary Dressing Covered/Secured with Dry Gauze, Secured with Tape -Silvercel 1 #4 Left Post Calf -Primary Dressing Applied Optilok 6.5x10 -Other Dressing silvercel -Primary Dressing Covered/Secured with Dry Gauze -Optilok 6.5x10 1 bilat -Multi-Layered Wrap Application Multi-Layer Multi-Layer Comp - Bilat ($ Comp - Bilat ($ ) ) Treatment Response Procedure Tolerated Well Pain Scale: 0-10 Numeric Is Patient Pain Free? Yes Yes - Visit Discharge Discharge Condition Stable Stable Ambulatory Status Ambulatory Ambulatory Transportation Private Auto Private Auto Medication Reconcilliation completed & No No provided to patient/care provider Clinical Summary of Care Provided Yes Yes Assessment/Plan Assessment/Plan (1) Venous insufficiency (chronic) (peripheral): CODE(S): I87.2 - Venous insufficiency (chronic) (peripheral) PLAN: Exam performed. Arterial studies within normal limits Venous studies demonstrate some venous insufficiency, will refer to vascular surgery Continue continue compression and elevation exercise for edema management No concern for bacterial infection at current Continue Betadine, silver alginate, 3M compression wrap, change twice weekly. Bilateral leg wounds were debrided excisionally down to including level of subcutaneous tissue of all nonviable tissue using 5 mm dermal curette without incident. Pre and postdebridement measurements documented nursing notes. Topical anesthesia used. Hemostasis with light compression. Patient tolerated procedure well. Patient will follow-up in 1 week. Will plan for lymphedema pumps upon completion of treatment (2) Non-pressure chronic ulcer of right calf with fat layer exposed: CODE(S): L97.212 - Non-pressure chronic ulcer of right calf with fat layer exposed (3) Non-pressure chronic ulcer of left calf with fat layer exposed: CODE(S): L97.222 - Non-pressure chronic ulcer of left calf with fat layer exposed (4) Stasis dermatitis of both legs: CODE(S): I87.2 - Venous insufficiency (chronic) (peripheral)
[2023-10-22 08:04] VITALS: BP 158/77; PULSE 94; RESP 18; TEMP 36.3
[2023-10-29 08:28] VITALS: BP 145/67; PULSE 68; RESP 18; TEMP 37
--- NOTE | 2023-10-29 08:59 | PN.PCM_ITS ---
History of Present Illness Date of Service: 10/29/23 Chief Complaint: Left posterior calf ulceration History of Wound: 63-year-old male follow-up bilateral lower extremity wounds secondary to venous insufficiency. Patient denies constitutional symptoms. Patient denies chest pain calf pain shortness of breath. Patient compliant with treatment no new issues today. Subjective Subjective follow up on left venous leg ulcer denies constitutionals, chest pain, calf pain or shortness of breath no new complaints Objective Data Objective Data Vital Signs: Vital Signs Temp Pulse Resp BP O2 Del Method 98.6 F 68 18 145/67 H Room Air 10/29/23 08:28 10/29/23 08:28 10/29/23 08:28 10/29/23 08:28 10/22/23 08:04 Oxygen Delivery Method Room Air Physical Exam Narrative Vascular: Dorsalis pedis and posterior tibial pulses palpable 2 out of 4 to bilateral lower extremity. Capillary fill time brisk. +2 pitting edema noted to bilateral perimalleolar region. Atrophic skin changes noted. Neurologic: Light touch protective sensation intact bilateral feet. No evidence of clonus or Babinski sign. Dermatologic: wound healed to left lower extremity. No signs of infection. Musculoskeletal: No pain with calf squeeze bilateral lower extremity. Muscular strength full. No wound forming deformities noted. Const alert and oriented x3 Debridement Note Debridement Note Post-Debridement Measurements and Additional Note: Post-Debridement Measurements/Treatment - Nurse 1 - General Ulcer Assessment Start: 10/08/23 08:25 Freq: Status: Active Protocol: WC.LOWEXT Activity Type Activity Date Activity User E-sign Co-sign Detail Recorded Client Recorded Date Recorded By Document 10/08/23 08:25 RB Desktop 10/08/23 08:28 RB Document 10/15/23 10:21 [id number] 10/15/23 10:34 KW Document 10/22/23 08:04 KW wound center 10/22/23 08:21 KW Document 10/29/23 08:28 RB wound center 10/29/23 08:31 RB 10/08/23 10/15/23 10/22/23 08:25 10:21 08:04 - Today's Visit Information Type of service Follow-up Visit Follow-up Visit Nurse-only (Physician/ACUPUNCTURE PHYSICIAN (Physician/ACUPUNCTURE PHYSICIAN Visit ) ) Arrival Mode Ambulatory Ambulatory Ambulatory Transfer Assistance None Patient Identification Verified (Name & Yes Yes Yes ) Patient Requires Transmission-Based No Precautions Vital Signs Temperature (97.8 F-99.1 F) 98.4 F 97.3 F L 97.4 F L Temperature Source Temporal Temporal Temporal Pulse Rate (60-100) 63 72 94 Pulse Location Monitor Monitor Monitor Respiratory Rate (12-18) 18 18 18 Respiratory rate source Observation Observation Observation Oxygen Delivery Method Room Air Room Air Blood Pressure (90/60-120/80) 144/63 H 134/56 H 158/77 H Blood Pressure Mean (mm Hg) 90 82 104 Source Monitor Monitor Monitor Position Semi-Fowlers Sitting Sitting Blood Pressure Location Left Arm Left Arm Left Forearm History Since Last Visit- (Skip if this is Patient's initial visit) Have you changed medications since your No No No last visit? Any new allergies or adverse reactions No No No Had a fall/change in ADL's that may No No No increase risk of falls Signs or symptoms of abuse and/or No No No neglect since last visit Have you been in the hospital since your No No No last visit? Has dressing in place as prescribed Yes Yes Yes Has compression in place as prescribed Yes Yes Yes Has offloadiing in place as prescribed No N/A N/A Experienced any changes in pain level or No No No management Left Footwear Regular Shoe Regular Shoe Right Footwear Regular Shoe Regular Shoe Pain Scale: 0-10 Numeric Is Patient Pain Free? Yes Yes Yes 10/29/23 08:28 - Today's Visit Information Type of service Follow-up Visit (Physician/ACUPUNCTURE PHYSICIAN ) Arrival Mode Ambulatory Transfer Assistance None Patient Identification Verified (Name & Yes ) Patient Requires Transmission-Based No Precautions Vital Signs Temperature (97.8 F-99.1 F) 98.6 F Temperature Source Temporal Pulse Rate (60-100) 68 Pulse Location Monitor Respiratory Rate (12-18) 18 Respiratory rate source Observation Oxygen Delivery Method Blood Pressure (90/60-120/80) 145/67 H Blood Pressure Mean (mm Hg) 93 Source Monitor Position Semi-Fowlers Blood Pressure Location Left Arm History Since Last Visit- (Skip if this is Patient's initial visit) Have you changed medications since your No last visit? Any new allergies or adverse reactions No Had a fall/change in ADL's that may No increase risk of falls Signs or symptoms of abuse and/or No neglect since last visit Have you been in the hospital since your No last visit? Has dressing in place as prescribed Yes Has compression in place as prescribed Yes Has offloadiing in place as prescribed No Experienced any changes in pain level or No management Left Footwear Right Footwear Pain Scale: 0-10 Numeric Is Patient Pain Free? Yes WC - Nurse 1 - General Ulcer Measurement Start: 10/08/23 08:25 Freq: Status: Active Protocol: Activity Type Activity Date Activity User E-sign Co-sign Detail Recorded Client Recorded Date Recorded By Document 10/08/23 08:25 RB Desktop 10/08/23 08:28 RB Document 10/15/23 10:21 [id number] 10/15/23 10:34 KW Document 10/29/23 08:28 RB wound center 10/29/23 08:31 RB 10/08/23 10/15/23 10/29/23 08:25 10:21 08:28 Wound Center Nurse 1 #6 Right Ant Calf -Combined with other wound No No -Current Size (cm) - Length 2 0.4 0.1 -Current Size (cm) - Width 1 0.4 0.1 -Current Size (cm) - Depth 0.1 0.1 0.1 -Total Square Cm 2 0.16 0.01 -Tunneling No No -Undermining/Tunneling No No -Circular Undermining No No -Exudate Amt Medium Small Medium -Exudate Type Serosanguineous Serous Serosanguineous -Wound Margin Distinct, Distinct, Distinct, Outline Outline Outline Attached Attached Attached -Granulation Amt Medium (34-66%) Large (67-100%) Medium (34-66%) -Granulation Quality [employer] -Slough/Fibrin Yes Yes -Necrosis Amt Medium (34-66%) Medium (34-66%) -Necrotic Tissue Type Adherent Slough Adherent Slough -Structure Exposed N/A N/A -Texture (Jessica-wound Skin Appearance) Assessed Assessed Assessed, Scarring -Moisture (Jessica-wound Skin Appearance) Assessed Assessed Assessed -Color (Jessica-wound Skin Appearance) Hemosiderin Assessed Assessed Staining -Temperature (Jessica-wound Skin No Abnormality No Abnormality No Abnormality Appearance) (Pt Warm) (Pt Warm) (Pt Warm) -Tenderness on Palpation (Jessica-wound No No No Skin Appearance) -Ulcer Cleansing Wound Cleanser Soap and Water Wound Cleanser -Foul Odor after Cleansing No No No -Anesthetic Used 5% Lidocaine 5% Lidocaine 5% Lidocaine Gel Gel Gel #4 Left Post Calf -Combined with other wound No No -Current Size (cm) - Length 1 0.9 0.1 -Current Size (cm) - Width 1.3 0.8 0.1 -Current Size (cm) - Depth 0.2 0.3 0.1 -Total Square Cm 1.3 0.72 0.01 -Tunneling No No -Undermining/Tunneling No No -Circular Undermining No No -Exudate Amt Medium Small Medium -Exudate Type Serosanguineous Serosanguineous Serosanguineous -Wound Margin Distinct, Distinct, Distinct, Outline Outline Outline Attached Attached Attached -Granulation Amt Medium (34-66%) Large (67-100%) Medium (34-66%) -Granulation Quality [employer] -Slough/Fibrin Yes Yes -Necrosis Amt Medium (34-66%) Small (1-33%) Medium (34-66%) -Necrotic Tissue Type Adherent Slough Adherent Slough Adherent Slough -Structure Exposed N/A N/A -Texture (Jessica-wound Skin Appearance) Assessed Assessed Assessed, Scarring -Moisture (Jessica-wound Skin Appearance) Assessed Assessed Assessed -Color (Jessica-wound Skin Appearance) Hemosiderin Assessed Assessed Staining -Temperature (Jessica-wound Skin No Abnormality No Abnormality No Abnormality Appearance) (Pt Warm) (Pt Warm) (Pt Warm) -Tenderness on Palpation (Jessica-wound No No No Skin Appearance) -Ulcer Cleansing Wound Cleanser Soap and Water Wound Cleanser -Foul Odor after Cleansing No No No -Anesthetic Used 5% Lidocaine 5% Lidocaine 5% Lidocaine Gel Gel Gel Lower Limb Edema Present Yes Yes Right Calf (cm) 44 44.5 42 Right Ankle (cm) 28 27.5 25.8 Left Calf (cm) 53.5 47.5 44 Left Ankle (cm) 29.5 30 27.5 WC - Nurse 2 - General Ulcer CM Notes Start: 10/08/23 08:25 Freq: Status: Active Protocol: Activity Type Activity Date Activity User E-sign Co-sign Detail Recorded Client Recorded Date Recorded By Document 10/08/23 08:39 Laptop 10/08/23 08:43 Document 05/14/24 10:52 [place] [id number] 10/15/23 10:54 DS 10/08/23 10/15/23 08:39 10:52 Wound Center Nurse 2 #6 Right Ant Calf -Time 08:39 10:52 -Correct Patient Yes Yes -Correct Side, Site, Position Yes Yes -Correct Procedure Yes Yes -Procedure Performed Yes Yes -Type of Procedure Debridement Debridement -Clinical Debridement Epidermis / Subcutaneous Dermis -Tissue Removed Epidermis, Subcutaneous Dermis -Post Debridement (cm) - Length 1.5 1.0 -Post Debridement (cm) - Width 1.0 0.5 -Post Debridement (cm) - Depth 0.1 0.1 -Total Square (Post) (cm) 1.50 0.50 -Area of Debridement (cm) - Length 1.5 1.0 -Area of Debridement (cm) - Width 1.0 0.5 -Total Square (Area) (cm) 1.50 0.50 -Tunneling No No -Undermining/Tunneling No No -Circular Undermining No No -Wound/Ulcer Outcome Not Healed Not Healed -Ulcer Cleansing Rinsed/ Irrigated with Saline -Foul Odor after Cleansing No -Bioengineered Tissue No -Bleeding Controlled with Pressure Pressure -Treatment Response Procedure Procedure Tolerated Well Tolerated Well -Offloading No -Debridement - Open, 1st 20sq cm Yes -Debridement - Subq, 1st 20sq cm Yes #4 Left Post Calf -Time 08:40 10:53 -Correct Patient Yes Yes -Correct Side, Site, Position Yes Yes -Correct Procedure Yes Yes -Procedure Performed Yes Yes -Type of Procedure Debridement Debridement -Clinical Debridement Subcutaneous Subcutaneous -Tissue Removed Subcutaneous Subcutaneous -Post Debridement (cm) - Length 1.0 0.8 -Post Debridement (cm) - Width 1.3 0.8 -Post Debridement (cm) - Depth 0.1 0.4 -Total Square (Post) (cm) 1.30 0.64 -Area of Debridement (cm) - Length 1.0 0.8 -Area of Debridement (cm) - Width 1.3 0.8 -Total Square (Area) (cm) 1.30 0.64 -Tunneling No No -Undermining/Tunneling No -Circular Undermining No No -Wound/Ulcer Outcome Not Healed Not Healed -Ulcer Cleansing Rinsed/ Rinsed/ Irrigated with Irrigated with Saline Saline -Foul Odor after Cleansing No -Bioengineered Tissue No -Bleeding Controlled with Pressure Pressure -Treatment Response Procedure Procedure Tolerated Well Tolerated Well -Offloading No -Debridement - Subq, 1st 20sq cm Yes No Pain Scale: 0-10 Numeric Is Patient Pain Free? Yes Yes WC - Nurse 3 - General Ulcer D/C NN Start: 10/08/23 08:25 Freq: Status: Active Protocol: Activity Type Activity Date Activity User E-sign Co-sign Detail Recorded Client Recorded Date Recorded By Document 10/08/23 08:59 RB Desktop 10/08/23 09:01 RB Document 10/15/23 11:06 [id number] 10/15/23 11:06 KW Document 10/22/23 08:04 KW wound center 10/22/23 08:21 KW 10/08/23 10/15/23 10/22/23 08:59 11:06 08:04 Wound Care Center Nurse 3 #6 Right Ant Calf -Ulcer Cleansing Soap and Water -Primary Dressing Applied Silvercel -Other Dressing silvercel/abd pt own pad silvercel -Primary Dressing Covered/Secured with Dry Gauze, Dry Gauze Secured with Tape -Silvercel 1 #4 Left Post Calf -Ulcer Cleansing Soap and Water -Primary Dressing Applied Optilok 6.5x10 -Other Dressing silvercel pt own silvercel -Primary Dressing Covered/Secured with Dry Gauze Dry Gauze -Optilok 6.5x10 1 bilat -Lotion applied to leg before Yes compression wrap -Multi-Layered Wrap Application Multi-Layer Multi-Layer Multi-Layer Comp - Bilat ($ Comp - Bilat ($ Comp - Bilat ($ ) ) ) Treatment Response Procedure Tolerated Well Vital Signs Temperature (97.8 F-99.1 F) 97.4 F L Temperature Source Temporal Pulse Rate (60-100) 94 Pulse Location Monitor Respiratory Rate (12-18) 18 Respiratory rate source Observation Oxygen Delivery Method Room Air Blood Pressure (90/60-120/80) 158/77 H Blood Pressure Mean (mm Hg) 104 Source Monitor Position Sitting Blood Pressure Location Left Forearm Pain Scale: 0-10 Numeric Is Patient Pain Free? Yes Yes Yes WC - Visit Discharge Discharge Condition Stable Stable Stable Ambulatory Status Ambulatory Ambulatory Ambulatory Transportation Private Auto Private Auto Private Auto Medication Reconcilliation completed & No No No provided to patient/care provider Clinical Summary of Care Provided Yes Yes Yes Assessment/Plan Assessment/Plan (1) Venous insufficiency (chronic) (peripheral): CODE(S): I87.2 - Venous insufficiency (chronic) (peripheral) PLAN: Exam performed. Arterial studies within normal limits Venous studies demonstrate some venous insufficiency, will refer to vascular surgery Continue continue compression and elevation exercise for edema management No concern for bacterial infection at current Continue Betadine, silver alginate, 3M compression wrap, change twice weekly. Bilateral leg wounds were debrided excisionally down to including level of subcutaneous tissue of all nonviable tissue using 5 mm dermal curette without incident. Pre and postdebridement measurements documented nursing notes. Topical anesthesia used. Hemostasis with light compression. Patient tolerated procedure well. Patient will follow-up in 1 week. Will plan for lymphedema pumps upon completion of treatment (2) Non-pressure chronic ulcer of right calf with fat layer exposed: CODE(S): L97.212 - Non-pressure chronic ulcer of right calf with fat layer exposed (3) Non-pressure chronic ulcer of left calf with fat layer exposed: CODE(S): L97.222 - Non-pressure chronic ulcer of left calf with fat layer exposed (4) Stasis dermatitis of both legs: CODE(S): I87.2 - Venous insufficiency (chronic) (peripheral)
== END 2023-10-29 16:22 | disposition home or self-care (01) ==
LOC: WC 08:30
PROVIDERS: PCP Nurse Practitioner Family; Referring Provider Podiatrist; Visit Provider Podiatrist
DX: I87.2 Venous insufficiency (chronic) (peripheral) (principal); L97.212 Non-pressure chronic ulcer of right calf with fat layer exposed; L97.222 Non-pressure chronic ulcer of left calf with fat layer exposed
CPT/HCPCS: 11042; 29581; 97597; 99213; G0463

== ENCOUNTER 2025-04-02 14:00 | Outpatient (RCR) | payer OTHER, SELFPAY ==
[2025-03-31 13:35] VITALS: BP 147/82; PULSE 90; RESP 18; TEMP 36.4; BMI 47.2
--- NOTE | 2025-03-31 14:22 | HP.PCM_ITS ---
History of Present Illness Date of Service: 03/31/25 Chief Complaint: Left posterior calf ulceration History of Wound: 63-year-old male follow-up bilateral lower extremity wounds secondary to venous insufficiency. Patient denies constitutional symptoms. Patient denies chest pain calf pain shortness of breath. Patient compliant with treatment no new issues today. Progress of Wound: Mr. Beth is a 65-year-old nondiabetic male presenting to clinic today follow- up evaluation of full-thickness wounds to bilateral lower extremity. Patient does suffer from venous insufficiency was treated previously for full-thickness wound by Dr. Garcia who is no longer with the wound care center. Patient has been getting treatment by his family who are nurses but due to failure to heal the bilateral wounds he is presenting today for expert care. He is not wearing compression as he has ripped up his compression sleeves bilaterally secondary to donning. He admits that he is not compliant with compression because he does not have them anymore. He denies trauma. Denies constitutional symptoms. Other pedal complaints at this time. 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 History of deep vein thrombosis (DVT) of lower extremity Ulcer of left calf Cellulitis of leg, left Venous insufficiency of both lower extremities Leg wound, left Home Medications Medication Instructions Recorded Last Taken Type furosemide 40 mg tablet 40 mg PO BID 04/09/19 Unknow n History simvastatin 40 mg tablet 40 mg PO QHS 04/09/19 Unknow n History apixaban 5 mg tablet (Eliquis) 5 mg PO BID 11/13/22 Un known History lisinopril 5 mg tablet 5 mg PO DAILY 10/15/23 Unkno wn History albuterol sulfate 90 mcg/actuation 2 puff inhalation Q 4-6H PRN 06/14/24 Unknown Rx aerosol inhaler shortness of breath or wheez ing #6.7 grams Allergy/AdvReac Type Severity Reaction Status Date / Time No Known Allergies Allergy Verified 12/27/24 10:16 Family History Father Diabetes Heart disease Sister Hypertension Surgical History Hx of ventral hernia repair Social History Smoking Status: Never smoker alcohol intake: current alcohol intake frequency: holidays/special occasions only Vital Signs Vital Signs Vital Signs: 03/31/25 13:35 Temperature 97.6 F L Temperature Source Temporal Pulse Rate 90 Respiratory Rate 18 Blood Pressure 147/82 H Blood Pressure Mean 103 Blood Pressure Source Monitor Blood Pressure Position Sitting Blood Pressure Location Left Arm Weight Weight: 145.15 kg Body Mass Index (BMI) 47.2 Physical Exam Narrative Vascular: DP and PT pulse are palpable to the bilateral lower extremity. CFT is brisk. Blanchable erythema appreciated the bilateral legs secondary to venous insufficiency. +1 pitting edema is noted. Mild serous drainage is appreciated. Neurological: Light touch is intact. Patient does respond to painful stimuli. Dermatological: Evidence of full-thickness wound to the posterior lateral right lower extremity measuring 2.0 x 1.0 x 0.1 cm. Wound base is granular with no sign of infection. Evidence of full-thickness wound to left posterior leg measuring 5.0 x 4.2 x 0.1 cm. Wound base is granular with no sign of infection. Excisional debridement down to including subcutaneous tissue to the posterior lateral right lower extremity done with a number 5 mm dermal curette without incident. Predebridement measurement was 1.8 x 1 with 0.8 x 0.1 cm. Pos tdebridement measurement is 2.0 x 1.0 x 0.1 cm. Excisional debridement down to including subcutaneous tissue of the left posterior leg full-thickness wound done with a number 5 mm dermal curette with out incident. Predebridement measurement was 4.8 x 4.0 x 0.1 cm. Postdebridement measurement is 5.0 x 4.2 x 0.1 cm. Hector skeletal: Muscle strength is 5/5 in all quadrants bilateral. No pain to palpation to full-thickness wound. No pain with calf pressure. Debridement Note Debridement Note Debridement Free Text: Excisional debridement down to including subcutaneous tissue to the posterior lateral right lower extremity done with a number 5 mm dermal curette without incident. Predebridement measurement was 1.8 x 1 with 0.8 x 0.1 cm. Postdebridement measurement is 2.0 x 1.0 x 0.1 cm. Excisional debridement down to including subcutaneous tissue of the left posterior leg full-thickness wound done with a number 5 mm dermal curette without incident. Predebridement measurement was 4.8 x 4.0 x 0.1 cm. Postdebridement measurement is 5.0 x 4.2 x 0.1 cm. Post-Debridement Measurements and Additional Note: Post-Debridement Measurements/Treatment - Nurse 1 - General Ulcer Assessment Start: 03/31/25 13:33 Freq: Status: Active Protocol: ABIGAIL.AB Activity Type Activity Date Activity User E-sign Co-sign Detail Recorded Client Recorded Date Recorded By Document 03/31/25 13:35 RB [id number] 03/31/25 13:40 RB 03/31/25 13:35 - Today's Visit Information Type of service Initial Visit Arrival Mode Ambulatory Transfer Assistance None Patient Identification Verified (Name & Yes ) Patient Requires Transmission-Based No Precautions Height and Weight Height 5 ft 9 in Weight 145.15 kg Weight in Pounds 320.0 lbs Body Mass Index (BMI) 47.2 BMI Classification Obese Vital Signs Temperature (97.8 F-99.1 F) 97.6 F L Temperature Source Temporal Pulse Rate (60-100) 90 Pulse Location Monitor Respiratory Rate (12-18) 18 Respiratory rate source Observation Blood Pressure (90/60-120/80) 147/82 H Blood Pressure Mean 103 Source Monitor Position Sitting Blood Pressure Location Left Arm History Since Last Visit- (Skip if this is Patient's initial visit) Have you changed medications since your No last visit? Any new allergies or adverse reactions No Had a fall/change in ADL's that may No increase risk of falls Signs or symptoms of abuse and/or No neglect since last visit Have you been in the hospital since your No last visit? Has dressing in place as prescribed Yes Has compression in place as prescribed N/A Has offloadiing in place as prescribed N/A Experienced any changes in pain level or No management Left Footwear Regular Shoe Right Footwear Regular Shoe Pain Scale: 0-10 Numeric Is Patient Pain Free? 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 Able to Read Yes Able to Write Yes Communication Tools None Right Hearing Abillity Normal Left Hearing Abillity Normal Visual Assistive Devices Glasses Teaching Assessment Preferences Verbal,Written, Demonstration Barriers to Learning None Readiness To Learn Good Willingness to Engage in Self Management Med Activies Readiness to Engage in Self Management Med Activities Anxiety Level Calm Cooperation Cooperative Perception Coherent Interest in Health Problem Asks Questions Education Importance Acknowledges Need Does Patient Smoke tobacco or other No substances Smoking Status Never smoker Is Patient Diabetic No Functional Assessment Recent Decline in Ability to Perform Denies Any Declines Assistive Device With Patient No Culture/Yazdanism/Matrix Inspector Cultural/Yazdanism Needs that may affect No Treatment Plan Would you allow our [facility] corrugator helper to No meet you for the purpose of spiritual/ emotional support? Matrix Inspector to contact place of orthodox No Teaching: Wound Center *Welcome to the Wound Center -Person Taught Patient -Teaching Method Discussion -Response to teaching Verbalize Understanding WC - Nurse 1 - General Ulcer Measurement Start: 03/31/25 13:33 Freq: Status: Active Protocol: Activity Type Activity Date Activity User E-sign Co-sign Detail Recorded Client Recorded Date Recorded By Document 03/31/25 13:35 RB [id number] 03/31/25 13:40 RB 03/31/25 13:35 Wound Center Nurse 1 8. RLE lateral -Combined with other wound No -Current Size (cm) - Length 0.1 -Current Size (cm) - Width 0.1 -Current Size (cm) - Depth 0.1 -Total Square Cm 0.01 -Photo Taken Yes -Tunneling No -Undermining/Tunneling No -Circular Undermining No -Exudate Amt Small -Exudate Type Serosanguineous -Wound Margin Distinct, Outline Attached -Granulation Amt Small (1-33%) -Granulation Quality [place] -Slough/Fibrin Yes -Necrosis Amt Large (67-100%) -Necrotic Tissue Type Eschar -Structure Exposed N/A -Texture (Jessica-wound Skin Appearance) Assessed -Moisture (Jessica-wound Skin Appearance) Assessed -Color (Jessica-wound Skin Appearance) Hemosiderin Staining -Temperature (Jessica-wound Skin No Abnormality Appearance) (Pt Warm) -Tenderness on Palpation (Jessica-wound No Skin Appearance) -Ulcer Cleansing Wound Cleanser -Foul Odor after Cleansing No -Anesthetic Used 5% Lidocaine Gel 7. LLE posterior -Combined with other wound No -Current Size (cm) - Length 10 -Current Size (cm) - Width 8 -Current Size (cm) - Depth 0.1 -Total Square Cm 80 -Photo Taken Yes -Tunneling No -Undermining/Tunneling No -Circular Undermining No -Exudate Amt Large -Exudate Type Serosanguineous -Wound Margin Distinct, Outline Attached -Granulation Amt Medium (34-66%) -Granulation Quality [place] -Slough/Fibrin Yes -Necrosis Amt Medium (34-66%) -Necrotic Tissue Type Adherent Slough -Structure Exposed N/A -Texture (Jessica-wound Skin Appearance) Assessed, Excoriation -Moisture (Jessica-wound Skin Appearance) Assessed -Color (Jessica-wound Skin Appearance) Assessed, Hemosiderin Staining -Temperature (Jessica-wound Skin No Abnormality Appearance) (Pt Warm) -Tenderness on Palpation (Jessica-wound No Skin Appearance) -Ulcer Cleansing Wound Cleanser -Foul Odor after Cleansing No -Anesthetic Used 5% Lidocaine Gel Lower Limb Edema Present Yes Right Calf (cm) 45.2 Right Ankle (cm) 28.2 Left Calf (cm) 55 Left Ankle (cm) 30.5 WC - Nurse 2 - General Ulcer CM Notes Start: 03/31/25 13:33 Freq: Status: Active Protocol: Activity Type Activity Date Activity User E-sign Co-sign Detail Recorded Client Recorded Date Recorded By Document 03/31/25 13:51 STEVEN [id number] 03/31/25 13:54 STEVEN 03/31/25 13:51 Wound Center Nurse 2 8. RLE lateral -Time 13:51 -Correct Patient Yes -Correct Side, Site, Position Yes -Correct Procedure Yes -Procedure Performed Yes -Type of Procedure Debridement -Clinical Debridement Subcutaneous -Tissue Removed Subcutaneous -Post Debridement (cm) - Length 2 -Post Debridement (cm) - Width 1 -Post Debridement (cm) - Depth 0.1 -Total Square (Post) (cm) 2 -Area of Debridement (cm) - Length 2 -Area of Debridement (cm) - Width 1 -Total Square (Area) (cm) 2 -Tunneling No -Undermining/Tunneling No -Circular Undermining No -Wound/Ulcer Outcome Not Healed -Ulcer Cleansing Rinsed/ Irrigated with Saline -Foul Odor after Cleansing No -Bioengineered Tissue No -Bleeding Controlled with Pressure -Treatment Response Procedure Tolerated Well -Offloading No -Debridement - Subq, 1st 20sq cm Yes -Debridement, SubQ, ea addt'l 20sq cm 1 or part thereof 7. LLE posterior -Time 13:52 -Correct Patient Yes -Correct Side, Site, Position Yes -Correct Procedure Yes -Procedure Performed Yes -Type of Procedure Debridement -Clinical Debridement Subcutaneous -Tissue Removed Subcutaneous -Post Debridement (cm) - Length 5 -Post Debridement (cm) - Width 4.2 -Post Debridement (cm) - Depth 0.1 -Total Square (Post) (cm) 21.0 -Area of Debridement (cm) - Length 5 -Area of Debridement (cm) - Width 4.2 -Total Square (Area) (cm) 21.0 -Tunneling No -Undermining/Tunneling No -Circular Undermining No -Wound/Ulcer Outcome Not Healed -Ulcer Cleansing Rinsed/ Irrigated with Saline -Foul Odor after Cleansing No -Bioengineered Tissue No -Bleeding Controlled with Pressure -Treatment Response Procedure Tolerated Well -Offloading No -Debridement - Subq, 1st 20sq cm No Pain Scale: 0-10 Numeric Is Patient Pain Free? Yes WC - Nurse 3 - General Ulcer D/C NN Start: 03/31/25 13:33 Freq: Status: Active Protocol: Activity Type Activity Date Activity User E-sign Co-sign Detail Recorded Client Recorded Date Recorded By Document 03/31/25 14:12 TS [id number] 03/31/25 14:15 TS Edit Result 03/31/25 14:12 TS (1) [id number] 03/31/25 14:16 TS (1) 7. LLE posterior - Primary Dressing Applied Silvercel => Optilok 6.5x10, => Silvercel - Optilok 6.5x10 => 1 03/31/25 14:12 Wound Care Center Nurse 3 8. RLE lateral -Ulcer Cleansing Rinsed/ Irrigated with Saline -Primary Dressing Applied Silvercel -Silvercel 1 7. LLE posterior -Ulcer Cleansing Rinsed/ Irrigated with Saline -Primary Dressing Applied Optilok 6.5x10, Silvercel -Optilok 6.5x10 1 -Silvercel 0 Jessica-Wound Care Lotion BLE -Multi-Layered Wrap Application Multi-Layer Comp - Bilat ($ ) -Multi-Layer Compression Bilat (Qty 1 applied) Treatment Response Procedure Tolerated Well Pain Scale: 0-10 Numeric Is Patient Pain Free? Yes WC - Visit Discharge Discharge Condition Stable Ambulatory Status Ambulatory Transportation Private Auto Medication Reconcilliation completed & No provided to patient/care provider Clinical Summary of Care Provided Yes Assessment/Plan Assessment/Plan (1) Other specified peripheral vascular diseases: CODE(S): I73.89 - Other specified peripheral vascular diseases PLAN: Patient was examined and evaluated. All findings were discussed with the patient. All questions were answered to the patient's satisfaction. Excisional debridement down to including subcutaneous tissue to the posterior lateral right lower extremity done with a number 5 mm dermal curette without incident. Predebridement measurement was 1.8 x 1 with 0.8 x 0.1 cm. Postdebridement measurement is 2.0 x 1.0 x 0.1 cm. Excisional debridement down to including subcutaneous tissue of the left posterior leg full-thickness wound done with a number 5 mm dermal curette without incident. Predebridement measurement was 4.8 x 4.0 x 0.1 cm. Postdebridement measurement is 5.0 x 4.2 x 0.1 cm. The bilateral lower extremities are cleaned and patted dry. Review of the patient's past [id number] show triphasic pulses with mild arterial occlusive disease. The patient's wounds were dressed with silver alginate followed by multilayer compression bandage per the manufactures recommendation. He will follow-up on Saturday for nursing visit and then follow-up with me a week from today. Patient was educated on signs symptoms of infection and will page me if he has any concerns. The patient left the office pleased with the visit. Follow-up at the wound care center with Dr. Back in 1 week. 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
--- NOTE | 2025-04-01 11:51 | WC ---
PHOTO-LLE PLANTAR 03/31/25
--- NOTE | 2025-04-01 11:57 | WC ---
PHOTO-RLE 03/31/25
[2025-04-02 13:58] VITALS: BP 113/70; PULSE 98; RESP 17; TEMP 36.8; BMI 47.2
== END 2025-04-02 23:59 | disposition home or self-care (01) ==
LOC: WC 14:00
PROVIDERS: PCP Nurse Practitioner Family; Referring Provider Nurse Practitioner Family; Visit Provider Podiatrist Foot & Ankle Surgery
DX: L97.812 Non-pressure chronic ulcer of other part of right lower leg with fat layer exposed (principal); L97.822 Non-pressure chronic ulcer of other part of left lower leg with fat layer exposed; Z82.49 Family history of ischemic heart disease and other diseases of the circulatory system; Z86.711 Personal history of pulmonary embolism; E78.5 Hyperlipidemia, unspecified; I87.2 Venous insufficiency (chronic) (peripheral); Z79.01 Long term (current) use of anticoagulants; Z86.718 Personal history of other venous thrombosis and embolism; I73.89 Other specified peripheral vascular diseases
CPT/HCPCS: 11042; 11045; 29581; 99213; G0463